=== PATIENT | female | born 1945 | race American Indian/Alaskan Native ===

== ENCOUNTER 2018-02-15 10:06 | Outpatient (CLI) | payer MEDICARE ==
--- NOTE | 2018-02-17 17:54 | Vascular Lab Report ---
RIGHT UPPER EXTREMITY VENOUS DUPLEX: REASON FOR EXAM: Pain and swelling of the right upper extremity COMMENTS ON THE RIGHT: All arm veins visualized are freely compressible without evidence of internal echogenicity. The subclavian and internal jugular veins are free of thrombus. Flow is spontaneous and phasic throughout. COMMENTS ON THE LEFT: A limited study of the jugular and subclavian veins shows no evidence of thrombus. IMPRESSION: No evidence of acute or chronic deep venous thrombosis in the right upper extremity.
--- NOTE | 2018-02-17 17:54 | Vascular Lab Report ---
Right Lower Extremity Venous Duplex Study: Reason for Exam: Pain and swelling of the right lower extremity. Comments on the Right: All veins visualized are freely compressible without evidence of internal echogenicity. Flow is spontaneous and phasic throughout. No evidence of acute or chronic thrombus is seen in any of the vessels visualized. Comments on the Left: A limited duplex study was done of the proximal veins of the left lower extremity. All veins visualized are freely compressible without evidence of internal echogenicity. Flow is spontaneous and phasic throughout. No evidence of acute or chronic thrombus is seen in any of the vessels visualized. Impression: No evidence of acute or chronic deep venous thrombosis in the right lower extremity. The greater saphenous vein is surgically absent on the right. Study was somewhat limited because of patient body habitus.
== END 2018-02-15 10:07 | disposition home or self-care (01) ==
LOC: VAS 10:06
PROVIDERS: ATTEND Internal Medicine
DX: M79.601 Pain in right arm (principal); M79.604 Pain in right leg; M79.89 Other specified soft tissue disorders

== ENCOUNTER 2019-03-16 08:01 | Day surgery (SDC) | payer MEDICARE ==
[~2019-03-16 08:01] MED LIST: NACL 0.9% 1000 ML 1,000 ML IV SCH
== END 2019-03-16 08:02 | disposition home or self-care (01) ==
LOC: OR 08:01
PROVIDERS: ATTEND Surgery Vascular Surgery
DX: I13.2 Hypertensive heart and chronic kidney disease with heart failure and with stage 5 chronic kidney disease, or end stage renal disease (principal); N18.6 End stage renal disease; I50.22 Chronic systolic (congestive) heart failure; E11.22 Type 2 diabetes mellitus with diabetic chronic kidney disease; E78.5 Hyperlipidemia, unspecified; E11.40 Type 2 diabetes mellitus with diabetic neuropathy, unspecified; I63.512 Cerebral infarction due to unspecified occlusion or stenosis of left middle cerebral artery; K21.9 Gastro-esophageal reflux disease without esophagitis; E11.51 Type 2 diabetes mellitus with diabetic peripheral angiopathy without gangrene; I25.10 Atherosclerotic heart disease of native coronary artery without angina pectoris; E03.9 Hypothyroidism, unspecified; M19.90 Unspecified osteoarthritis, unspecified site; Z53.8 Procedure and treatment not carried out for other reasons; Z88.5 Allergy status to narcotic agent; Z88.6 Allergy status to analgesic agent; Z79.01 Long term (current) use of anticoagulants; Z79.899 Other long term (current) drug therapy; Z79.4 Long term (current) use of insulin; Z87.440 Personal history of urinary (tract) infections; Z98.49 Cataract extraction status, unspecified eye; Z95.1 Presence of aortocoronary bypass graft; Z86.718 Personal history of other venous thrombosis and embolism; Z68.43 Body mass index [BMI] 50.0-59.9, adult; Z91.81 History of falling; Z99.2 Dependence on renal dialysis; Z90.710 Acquired absence of both cervix and uterus; Z90.12 Acquired absence of left breast and nipple; Z86.2 Personal history of diseases of the blood and blood-forming organs and certain disorders involving the immune mechanism; Z86.73 Personal history of transient ischemic attack (TIA), and cerebral infarction without residual deficits

== ENCOUNTER 2019-09-25 19:19 | Emergency (ER) | payer MEDICARE ==
--- NOTE | 2019-09-25 20:03 | Event Note ---
ED Screening Note ED Screening Note: pt c/o MALONE and neck pain that began 5 days ago went to [facility] last night no fever no N/V/D PMHx ESRD, DM, CVA This initial assessment/diagnostic orders/clinical plan/treatment(s) is/are subject to change based on patients health status, clinical progression and re- assessment by fellow clinical providers in the ED. Further treatment and workup at subsequent clinical providers discretion. Patient/guardian urged not to elope from the ED as their condition may be serious if not clinically assessed and managed. Initial orders include: CT head, cervical spine, labs
[2019-09-25 21:09] LABS: Basophils # (Auto) 0.1 K/mm3 (0.0-0.1); Basophils % (Auto) 2.1 % (0.0-1.8); Eosinophils # (Auto) 0.1 K/mm3 (0.0-0.4); Eosinophils % (Auto) 2.8 % (0.0-4.3); Hematocrit 40.4 % (30.3-42.9); Hemoglobin 13.4 gm/dl (10.1-14.3); Lymphocytes % (Auto) 21.4 % (13.4-35.0); Mean Corpuscular HGB Conc 33 % (30-34); Mean Corpuscular Volume 102 fl (79-97); Monocytes # (Auto) 0.3 K/mm3 (0.0-0.8); Monocytes % (Auto) 5.6 % (0.0-7.3); Platelet Count 192 K/mm3 (140-440); Red Blood Count 3.97 M/mm3 (3.65-5.03); Red Cell Distribution Width 13.4 % (13.2-15.2)
[2019-09-25 21:21] LABS: Calcium 10.1 mg/dL (8.4-10.2)
--- NOTE | 2019-09-25 21:25 | Cat Scan Report ---
CT head/brain wo con INDICATION: Headache, neck pain. TECHNIQUE: Routine CT head without contrast. All CT scans at this location are performed using CT dos e reduction for ALARA by means of automated exposure control. COMPARISON: None. FINDINGS: BRAIN / INTRACRANIAL CONTENTS: No acute hemorrhage, mass effect, midline shift, or hydrocephalus. No appreciable acute large territorial or lacunar infarct. There is an old left MCA territory infarct wi th encephalomalacia. No loss of marley-white differentiation. Partially empty configuration of the sell a is noted. Moderate degree of generalized cerebral volume loss. ORBITS: No significant abnormality of visualized orbits. SINUSES / MASTOIDS: No significant abnormality of visualized sinuses and mastoid air cells. ADDITIONAL FINDINGS: None. IMPRESSION: 1. Old left MCA territory infarct. No acute intracranial abnormality. 2. Partially empty sella. Signer Name: Mikey Zurita MD Signed: 09/25/2019 9:20 PM Workstation Name: [id number]
--- NOTE | 2019-09-25 21:31 | Cat Scan Report ---
CT CERVICAL SPINE WITHOUT CONTRAST INDICATION / CLINICAL INFORMATION: MAIN: HEADACHE, RT SIDE NECK PAIN.. TECHNIQUE: Axial CT images were obtained through the cervical spine. Sagittal and coronal reformatted images wer e produced. All CT scans at this location are performed using CT dose reduction for ALARA by means of automated exposure control. COMPARISON: None available. FINDINGS: VERTEBRAE: No acute abnormality. No significant height loss. ALIGNMENT: Reversal of normal cervical lordosis centered at the C4-C5 disc space level. DISC SPACES: Multilevel narrowing, most severe at C4-C5 and C5-C6. Large posterior disc osteophyte co mplexes are present at C3-C4 and C4-C5 and C5-C6. FACET JOINTS: Relatively mild facet arthrosis, most significant at C7-T1 on the right. CRANIOCERVICAL JUNCTION:No significant abnormality. SPINAL CANAL: There is probably a moderate degree of stenosis at C4-C5 due to the posteriorly project ing disc osteophyte complex. PARASPINAL SOFT TISSUES: No significant abnormality. ADDITIONAL FINDINGS: There is at least moderate neural foraminal stenosis on the right at C4-C5. LUNG APICES: No significant abnormality of visualized lungs. IMPRESSION: 1. Multilevel degenerative changes with reversal of normal cervical lordosis and some degree of spina l stenosis at C4-C5 due to a large posterior disc osteophyte complex. 2. No acute abnormality of the cervical spine is identified. Signer Name: Mikey Zurita MD Signed: 09/25/2019 9:26 PM Workstation Name: [id number]
--- NOTE | 2019-09-25 21:44 | Emergency Department Report ---
ED Headache HPI - General Chief Complaint: Headache Stated Complaint: HEADACHE RUNNING DOWN RT SHOULDER AND NECK Time Seen by Provider: 09/25/19 20:02 Source: patient, family - History of Present Illness Initial Comments: 74-year-old -[place]i female patient with history of diabetes, hypertension, ESRD on dialysis, CHF, CAD, and CVA with permanent right sided deficits presents with complaints of right sided headache and neck pain for the past 5 days. She denies any fever/chills/sweats/changes in appetite, cough, vision changes, dizziness, or new numbness/tingling/weakness. She states her p ain is not improving with Percocet. She states she was seen at [facility] last night for same symptoms, however states no imaging or lab work were done. She denies any recent falls or head trauma. Allergies/Adverse Reactions: Allergies codeine Allergy (Unverified 03/15/19 11:28) Unknown Penicillins Adverse Reaction (Verified 03/15/19 11:28) Unknown Home Medications: Ambulatory Orders Allopurinol [Zyloprim] 100 mg PO QDAY 02/10/14 FLUoxetine [PROzac] 20 mg PO QDAY 02/10/14 Baclofen [Lioresal] 5 mg PO BID #60 tablet 04/05/14 Gabapentin 400 mg PO BID #60 capsule 04/05/14 Rosuvastatin (Nf) [Crestor] 10 mg PO QHS #30 tablet 04/05/14 Warfarin [Coumadin] 5 mg PO QDAY #30 tablet 04/30/14 Furosemide [Lasix TAB] 80 mg PO DAILY 01/24/19 Insulin Aspart Prot/Aspart(Nf) [NovoLOG Mix 70/30 VIAL] 20 unit SQ BIDAC 01/24/19 Levothyroxine [Synthroid] 50 mcg PO QAM 01/24/19 Losartan [Cozaar] 100 mg PO QDAY 01/24/19 Metoprolol Xl [Metoprolol SUCCINATE ER TAB] 50 mg PO DAILY 01/24/19 Potassium Chloride [K-Dur] 20 meq PO QDAY 01/24/19 Torsemide [Demadex] 20 mg PO DAILY 01/24/19 Warfarin [Coumadin] 10 mg PO QDAY 01/24/19 HYDROcodone/APAP 5-325 [Manvel 5/325] 1 each PO Q6HR PRN #20 tablet 01/25/19 ED Review of Systems ROS: Stated complaint: HEADACHE RUNNING DOWN RT SHOULDER AND NECK Other details as noted in HPI Comment: All other systems reviewed and negative Musculoskeletal: as per HPI Neurological: as per HPI ED Past Medical Hx - Past Medical History Previous Medical History?: Yes Hx Hypertension: Yes Hx Heart Attack/AMI: Yes (1998) Hx Congestive Heart Failure: Yes Hx Diabetes: Yes Hx Deep Vein Thrombosis: Yes Hx Pulmonary Embolism: Yes Hx GERD: Yes Hx Renal Disease: Yes (On dialysis) Hx Arthritis: Yes (Back) Additional medical history: Aphasia - Surgical History Past Surgical History?: Yes Hx Open Heart Surgery: Yes (CABG 1998) Additional Surgical History: hx breast ca - Social History Smoking Status: Never Smoker Substance Use Type: None - Medications Home Medications: Home Medications Medication Instructions Recorded Confirmed Last Taken Type Allopurinol [Zyloprim] 100 mg PO QDAY 02/10/14 03/15/19 01/24/19 History FLUoxetine [PROzac] 20 mg PO QDAY 02/10/14 03/15/19 01/24/19 History Baclofen [Lioresal] 5 mg PO BID #60 tablet 04/05/14 03/15/19 01/24/19 Rx Gabapentin 400 mg PO BID #60 capsule 04/05/14 03/15/19 01/24/19 Rx Rosuvastatin (Nf) [Crestor] 10 mg PO QHS #30 tablet 04/05/14 03/15/19 01/24/19 Rx Warfarin [Coumadin] 5 mg PO QDAY #30 tablet 04/30/14 03/15/19 01/23/19 Rx Furosemide [Lasix TAB] 80 mg PO DAILY 01/24/19 03/15/19 01/24/19 History Insulin Aspart Prot/Aspart(Nf) 20 unit SQ BIDAC 01/24/19 03/15/19 01/24/19 History [NovoLOG Mix 70/30 VIAL] Levothyroxine [Synthroid] 50 mcg PO QAM 01/24/19 03/15/19 01/25/19 05:00 History Losartan [Cozaar] 100 mg PO QDAY 01/24/19 03/15/19 01/24/19 History Metoprolol Xl [Metoprolol 50 mg PO DAILY 01/24/19 03/15/19 01/25/19 05:00 History SUCCINATE ER TAB] Potassium Chloride [K-Dur] 20 meq PO QDAY 01/24/19 03/15/19 01/24/19 History Torsemide [Demadex] 20 mg PO DAILY 01/24/19 03/15/19 01/24/19 History Warfarin [Coumadin] 10 mg PO QDAY 01/24/19 03/15/19 Unknown History HYDROcodone/APAP 5-325 [Manvel 1 each PO Q6HR PRN #20 tablet 01/25/19 03/15/19 Unknown Rx 5/325] ED Physical Exam - General Limitations: Physical Limitation, Other General appearance: alert, in no apparent distress - Head Head exam: Present: atraumatic, normocephalic - Expanded Head Exam Expanded 1 - Mild tenderness to palpation noted. No swollen blood vessel erythema noted - Eye Eye exam: Present: normal appearance, PERRL, EOMI. Absent: scleral icterus - ENT ENT exam: Present: mucous membranes moist - Expanded ENT Exam Expanded Ear exam: Present: other (normal right TM and canal. Tenderness is noted with manipulation of tragus) Mouth exam: Absent: trismus - Neck Neck exam: Present: normal inspection, tenderness (right trapezius muscle tenderness noted), lymphadenopathy (single tender posterior cervical lymph node noted) - Respiratory Respiratory exam: Present: normal lung sounds bilaterally - Cardiovascular Cardiovascular Exam: Present: regular rate, normal rhythm - GI/Abdominal GI/Abdominal exam: Present: soft. Absent: distended, tenderness - Extremities Exam Extremities exam: Present: calf tenderness (right sided) - Back Exam Back exam: Absent: paraspinal tenderness, vertebral tenderness - Neurological Exam Neurological exam: Present: alert, oriented X3, CN II-XII intact, motor sensory deficit (chronic right arm and leg weakness due to stroke, normal strength, ROM, and sensation noted in left extremities ), other (negative brudzinki's and kernig's sign) - Psychiatric Psychiatric exam: Present: normal affect, normal mood - Skin Skin exam: Present: warm, dry, intact, normal color. Absent: rash, diaphoretic, erythema ED Course Vital Signs 09/25/19 09/25/19 09/25/19 19:30 20:02 21:11 Temperature 98.4 F 98.4 F Pulse Rate 54 L 55 L 59 L Respiratory 18 18 16 Rate Blood Pressure 137/58 137/58 Blood Pressure 158/63 [Left] O2 Sat by Pulse 95 100 95 Oximetry 09/26/19 00:29 Temperature Pulse Rate 61 Respiratory 16 Rate Blood Pressure Blood Pressure 126/70 [Left] O2 Sat by Pulse 97 Oximetry ED Medical Decision Making - Lab Data Result diagrams: 09/25/19 20:43 09/25/19 20:43 Lab Results 09/25/19 09/25/19 09/25/19 Range/Units 20:43 20:43 20:43 WBC 4.8 (4.5-11.0) K/mm3 RBC 3.97 (3.65-5.03) M/mm3 Hgb 13.4 (10.1-14.3) gm/dl Hct 40.4 (30.3-42.9) % MCV 102 H (79-97) fl MCH 34 H (28-32) pg MCHC 33 (30-34) % RDW 13.4 (13.2-15.2) % Plt Count 192 (140-440) K/mm3 Lymph % (Auto) 21.4 (13.4-35.0) % Butts % (Auto) 5.6 (0.0-7.3) % Eos % (Auto) 2.8 (0.0-4.3) % Baso % (Auto) 2.1 H (0.0-1.8) % Lymph # 1.0 L (1.2-5.4) K/mm3 Butts # 0.3 (0.0-0.8) K/mm3 Eos # 0.1 (0.0-0.4) K/mm3 Baso # 0.1 (0.0-0.1) K/mm3 Seg Neutrophils % 68.1 (40.0-70.0) % Seg Neutrophils # 3.3 (1.8-7.7) K/mm3 ESR 24 (0-20) mm/Hr Sodium 134 L (137-145) mmol/L Potassium 4.0 (3.6-5.0) mmol/L Chloride 94.3 L (98-107) mmol/L Carbon Dioxide 26 (22-30) mmol/L Anion Gap 18 mmol/L BUN 28 H (7-17) mg/dL Creatinine 2.0 H (0.7-1.2) mg/dL Estimated GFR 29 ml/min BUN/Creatinine Ratio 14 % Glucose 81 (65-100) mg/dL Calcium 10.1 (8.4-10.2) mg/dL - Radiology Data CT head/brain wo con INDICATION: Headache, neck pain. TECHNIQUE: Routine CT head without contrast. All CT scans at this location are performed using CT dose reduction for ALARA by means of automated exposure control. COMPARISON: None. FINDINGS: BRAIN / INTRACRANIAL CONTENTS: No acute hemorrhage, mass effect, midline shift, or hydrocephalus. No appreciable acute large territorial or lacunar infarct. There is an old left MCA territory infarct with encephalomalacia. No loss of marley-white differentiation. Partially empty configuration of the sella is noted. Moderate degree of generalized cerebral volume loss. ORBITS: No significant abnormality of visualized orbits. SINUSES / MASTOIDS: No significant abnormality of visualized sinuses and mastoid air cells. ADDITIONAL FINDINGS: None. IMPRESSION: 1. Old left MCA territory infarct. No acute intracranial abnormality. 2. Partially empty sella. CT CERVICAL SPINE WITHOUT CONTRAST INDICATION / CLINICAL INFORMATION: MAIN: HEADACHE, RT SIDE NECK PAIN.. TECHNIQUE: Axial CT images were obtained through the cervical spine. Sagittal and coronal reformatted images were produced. All CT scans at this location are performed using CT dose reduction for ALARA by means of automated exposure control. COMPARISON: None available. FINDINGS: VERTEBRAE: No acute abnormality. No significant height loss. ALIGNMENT: Reversal of normal cervical lordosis centered at the C4-C5 disc spa ce level. DISC SPACES: Multilevel narrowing, most severe at C4-C5 and C5-C6. Large posterior disc osteophyte complexes are present at C3-C4 and C4-C5 and C5-C6. FACET JOINTS: Relatively mild facet arthrosis, most significant at C7-T1 on the right. CRANIOCERVICAL JUNCTION:No significant abnormality. SPINAL CANAL: There is probably a moderate degree of stenosis at C4-C5 due to the posteriorly projecting disc osteophyte complex. PARASPINAL SOFT TISSUES: No significant abnormality. ADDITIONAL FINDINGS: There is at least moderate neural foraminal stenosis on the right at C4-C5. LUNG APICES: No significant abnormality of visualized lungs. IMPRESSION: 1. Multilevel degenerative changes with reversal of normal cervical lordosis and some degree of spinal stenosis at C4-C5 due to a large posterior disc osteophyte complex. 2. No acute abnormality of the cervical spine is identified. . . . . DUPLEX DOPPLER LOWER EXTREMITY VEINS, RIGHT INDICATION: Right leg pain. History of DVT. TECHNIQUE: Duplex doppler imaging was performed through the veins of the right lower extremity using venous compression and other maneuvers. COMPARISON: Right lower extremity venous ultrasound, 02/15/2018 FINDINGS: Common Femoral vein: Negative. Superficial Femoral vein: Negative. Popliteal vein: Negative. Calf veins: Negative. Additional findings: None. IMPRESSION: 1. No sonographic evidence for DVT in the right lower extremity. - Medical Decision Making 74-year-old female patient here with complaints of right-sided was 5 days. She states her oxycodone is not helping with the pain. She does have history of CVA with permanent right sided neuro deficits. neuro exam today is otherwise wnl and patient denies any fever, body aches, vision changes, dizziness, or neck stiffness. CT head is negative for acute findings. Wbc's are normal. UA is normal. Patient states headache has completely resolved with the ED. Vitals are normal. Patient is due for dialysis tomorrow. Recommend follow-up with her primary care physician and neurology. Discussed very strict return precautions in detail with patient's daughter who states understanding. Critical care attestation.: If time is entered above; I have spent that time in minutes in the direct care of this critically ill patient, excluding procedure time. ED Disposition Clinical Impression: Headache syndrome, Muscle spasm, Cervical lymphadenopathy Disposition: - TO HOME OR SELFCARE Is pt being admited?: No Condition: Stable Instructions: Lymphadenopathy (ED), Acute Headache (ED), Muscle Spasm (ED) Additional Instructions: Please follow-up with your primary care provider for recheck of lymph node and neck within 3-5 days. Return to the emergency department if he developed any new or worsening symptoms Referrals: JOHN RUSH MD [Primary Care Provider] - 2-3 Days ALLAN SUTTON MD [Staff Physician] - 3-5 Days
[2019-09-25] MEDS ORDERED: BUTALB/ACETAMINOPHEN/CAFFEINE TAB PO ONE (22:06)
--- NOTE | 2019-09-25 22:54 | Vascular Lab Report ---
DUPLEX DOPPLER LOWER EXTREMITY VEINS, RIGHT INDICATION: Right leg pain. History of DVT. TECHNIQUE: Duplex doppler imaging was performed through the veins of the right lower extremity using venous comp ression and other maneuvers. COMPARISON: Right lower extremity venous ultrasound, 02/15/2018 FINDINGS: Common Femoral vein: Negative. Superficial Femoral vein: Negative. Popliteal vein: Negative. Calf veins: Negative. Additional findings: None. IMPRESSION: 1. No sonographic evidence for DVT in the right lower extremity. Signer Name: Maribell Olvera MD Signed: 09/25/2019 10:50 PM Workstation Name: [id number]
[2019-09-25] MEDS ORDERED: CYCLOBENZAPRINE 10 MG TAB PO ONE (23:23)
[2019-09-26 00:30] VITALS: BP 126/70
[2019-09-26] MEDS ORDERED: dexAMETHasone 4 MG/ML VIAL IV ONE (00:52)
[2019-09-26] MEDS ORDERED: METOCLOPRAMIDE 10 MG/2 ML INJ IV ONE (00:52)
[2019-09-26] MEDS ORDERED: MORPHINE 4 MG/1 ML INJ IV ONE (00:52)
[2019-09-26] MEDS ORDERED: ONDANSETRON 4 MG ODT TAB PO ONE (00:52)
[2019-09-26] MEDS ORDERED: diphenhydrAMINE 50 MG/ML VIAL IV ONE (00:52)
[2019-09-26 01:53] LABS: Bilirubin,Urine NEG (Negative); Blood,Urine NEG (Negative); Color,Urine Yellow (Yellow); Hyaline Casts,Urine 6 /LPF; Mucus,Urine FEW /HPF; Protein,Urine <15 mg/dL mg/dL (Negative); Urobilinogen,Urine < 2.0 mg/dL (<2.0)
== END 2019-09-26 03:14 | disposition home or self-care (01) ==
LOC: ED 19:19
DX: M62.838 Other muscle spasm (principal); R59.0 Localized enlarged lymph nodes; I25.2 Old myocardial infarction; I13.2 Hypertensive heart and chronic kidney disease with heart failure and with stage 5 chronic kidney disease, or end stage renal disease; I50.9 Heart failure, unspecified; E11.22 Type 2 diabetes mellitus with diabetic chronic kidney disease; N18.6 End stage renal disease; Z99.2 Dependence on renal dialysis; Z86.718 Personal history of other venous thrombosis and embolism; Z86.711 Personal history of pulmonary embolism; Z95.1 Presence of aortocoronary bypass graft; Z85.3 Personal history of malignant neoplasm of breast; Z86.73 Personal history of transient ischemic attack (TIA), and cerebral infarction without residual deficits; Z79.899 Other long term (current) drug therapy; Z88.0 Allergy status to penicillin; Z88.5 Allergy status to narcotic agent
CPT/HCPCS: 36415; 70450; 72125; 80048; 81001; 83735; 85025; 85652; 93971; 96374; 96375; 99284; J1100; J1200; J2270; J2765; Q0162

== ENCOUNTER 2021-03-13 00:57 | Inpatient (IN) | payer MEDICARE ==
--- NOTE | 2021-03-13 01:29 | Emergency Department Report ---
ED Neuro Deficit HPI - General Stated Complaint: STROKE/AMS Time Seen by Provider: 03/13/21 01:09 Source: family, EMS - History of Present Illness Initial Comments: Patient is 75-year-old female with history of CVA, hypertension, diabetes, congestive heart failure and COPD. Patient brought to the emergency room via EMS from home for evaluation of possible stroke. Patient daughter who accompanied her mother stated that she was fine until this morning when she left work around 6 AM and when she came back around 4PM found her more lethargic and unable to move her right upper and lower extremity. She also noted that she is confused and have decreased responsiveness. She stated that she checked her sugar and it was more than 500 she given insulin but no improvement. She also stated that she had a stroke in 2013 with residual right side weakness however she walk with a walker sometimes. Stroke protocol immediately initiated and patient moved to CT for stat CT brain without contrast. Stroke neurology consulted and Dr. Franc Guillen I examined the patient via video conference. CT brain showed no hemorrhage. Patient is not a TPA candidate since symptoms is more than 4.5 hours. -: Sudden Location: speech, right arm, right leg Presenting Symptoms: Present: Weak/Paralyzed One Side, Altered Mental Status History of same: Yes - Related Data Home Medications: Home Medications Medication Instructions Recorded Confirmed Last Taken FLUoxetine [PROzac] 20 mg PO QDAY 02/10/14 03/14/21 01/24/19 allopurinoL [Zyloprim] 100 mg PO QDAY 02/10/14 03/13/21 01/24/19 Levothyroxine [Synthroid] 50 mcg PO QAM 01/24/19 03/13/21 01/25/19 05:00 Previous Rx's Medication Instructions Recorded Last Taken Type Baclofen [Lioresal] 5 mg PO BID #60 tablet 04/05/14 01/24/19 Rx Gabapentin 400 mg PO BID #60 capsule 04/05/14 01/24/19 Rx AtorvaSTATin [Lipitor] 20 mg PO QHS #30 tablet 09/10/20 Unknown Rx Insulin NPH/Regular [NovoLIN 70/30] 25 unit SUB-Q BIDDIAB #1 units 09/10/20 Unknown Rx Lactulose [Cephulac] 20 gm PO QDAY PRN #7 oral.liqd 09/10/20 Unknown Rx ALBUTEROL NEB's [Proventil 0.083% 2.5 mg IH Q3HRT PRN nebu 03/15/21 Unknown Rx NEBS] Apixaban [Eliquis] 5 mg PO Q12HR tablet 03/15/21 Unknown Rx Furosemide [Lasix TAB] 80 mg PO DAILY tablet 03/15/21 Unknown Rx Metoprolol [Lopressor TAB] 25 mg PO Q6HR tablet 03/15/21 Unknown Rx bisacodyL [Dulcolax suppos] 10 mg [place] QDAY PRN supp.rect 03/15/21 Unknown Rx Allergies/Adverse Reactions: Allergies Allergy/AdvReac Type Severity Reaction Status Date / Time codeine Allergy Intermediate Unknown Verified 09/07/20 13:26 Penicillins AdvReac Severe Unknown Verified 09/07/20 13:26 ED Review of Systems ROS: Stated complaint: STROKE/AMS Other details as noted in HPI Comment: All other systems reviewed and negative Constitutional: denies: chills, fever Respiratory: denies: shortness of breath Cardiovascular: denies: chest pain Gastrointestinal: nausea Musculoskeletal: denies: back pain Neurological: denies: headache, weakness ED Past Medical Hx - Past Medical History Hx Hypertension: Yes Hx Heart Attack/AMI: Yes Hx Congestive Heart Failure: Yes Hx Diabetes: Yes Hx Deep Vein Thrombosis: Yes Hx Pulmonary Embolism: Yes Hx GERD: Yes Hx Renal Disease: Yes (On dialysis) Hx Arthritis: Yes Additional medical history: Aphasia - Surgical History Hx Open Heart Surgery: Yes (CABG 1998) Additional Surgical History: hx breast ca - Social History Smoking Status: Never Smoker - Medications Home Medications: Home Medications Medication Instructions Recorded Confirmed Last Taken Type FLUoxetine [PROzac] 20 mg PO QDAY 02/10/14 03/14/21 01/24/19 History allopurinoL [Zyloprim] 100 mg PO QDAY 02/10/14 03/13/21 01/24/19 History Baclofen [Lioresal] 5 mg PO BID #60 tablet 04/05/14 03/13/21 01/24/19 Rx Gabapentin 400 mg PO BID #60 capsule 04/05/14 03/13/21 01/24/19 Rx Levothyroxine [Synthroid] 50 mcg PO QAM 01/24/19 03/13/21 01/25/19 05:00 History AtorvaSTATin [Lipitor] 20 mg PO QHS #30 tablet 09/10/20 03/14/21 Unknown Rx Insulin NPH/Regular [NovoLIN 70/30] 25 unit SUB-Q BIDDIAB #1 units 09/10/20 03/13/21 Unknown Rx Lactulose [Cephulac] 20 gm PO QDAY PRN #7 oral.liqd 09/10/20 03/14/21 Unknown Rx ALBUTEROL NEB's [Proventil 0.083% 2.5 mg IH Q3HRT PRN nebu 03/15/21 Unknown Rx NEBS] Apixaban [Eliquis] 5 mg PO Q12HR tablet 03/15/21 Unknown Rx Furosemide [Lasix TAB] 80 mg PO DAILY tablet 03/15/21 Unknown Rx Metoprolol [Lopressor TAB] 25 mg PO Q6HR tablet 03/15/21 Unknown Rx bisacodyL [Dulcolax suppos] 10 mg [place] QDAY PRN supp.rect 03/15/21 Unknown Rx ED Neuro Physical Exam - General General appearance: obtunded Suspected Stroke: Yes - Head Head exam: Present: atraumatic, normocephalic, normal inspection - Eye Eye exam: Present: normal appearance, PERRL - ENT ENT exam: Present: normal orophraynx - Neck Neck exam: Present: normal inspection - Respiratory Respiratory exam: Present: normal lung sounds bilaterally - Cardiovascular Cardiovascular Exam: Present: regular rate, normal rhythm, normal heart sounds - GI/Abdominal GI/Abdominal exam: Present: soft, normal bowel sounds. Absent: distended, tenderness, guarding, rebound, rigid, organomegaly, mass, bruit, pulsatile mass, hernia - Extremities Exam Extremities exam: Present: normal inspection, full ROM, normal capillary refill - Back Exam Back exam: Present: normal inspection, full ROM. Absent: CVA tenderness (R), CVA tenderness (L) - Neurological Exam Neurological exam: Present: altered - NIHSS Assessment Interval: Baseline 1a. Level of Consciousness: arousable/minor stimuli 1b. LOC Questions: answers no questions correctly 1c. LOC Commands: performs no tasks correctly 2. Best Gaze: normal 3. Visual: no visual loss 4. Facial Palsy: minor paralysis 5b. Motor Arm Right: drift 5a. Motor Arm Left: no drift 6a. Motor Leg Left: no drift 6b. Motor Leg Right: drift 7. Limb Ataxia: absent 8. Sensory: mild/moderate sensory loss 9. Best Language: mild/moderate aphasia 10. Dysarthria: mild/moderate dysarthria 11. Extinction/Inattention: no abnormality Total Score: 11 Stroke Severity: Moderate Stroke - Psychiatric Psychiatric exam: Present: flat affect - Skin Skin exam: Present: warm, intact, normal color ED Course Vital Signs 03/13/21 03/13/21 03/13/21 01:53 01:54 01:56 Temperature Pulse Rate 62 63 63 Respiratory Rate Blood Pressure 133/63 133/63 O2 Sat by Pulse 96 95 96 Oximetry 03/13/21 03/13/21 03/13/21 01:58 02:00 02:25 Temperature 97.7 F Pulse Rate 66 66 Respiratory Rate Blood Pressure 133/63 147/68 O2 Sat by Pulse 95 96 Oximetry 03/13/21 03/13/21 03/13/21 04:08 04:10 04:12 Temperature Pulse Rate 67 68 67 Respiratory Rate Blood Pressure 150/70 150/70 150/70 O2 Sat by Pulse 97 97 97 Oximetry 03/13/21 03/13/21 03/13/21 04:14 04:16 04:18 Temperature Pulse Rate 67 67 67 Respiratory Rate Blood Pressure 151/73 151/73 151/73 O2 Sat by Pulse 97 97 99 Oximetry 03/13/21 03/13/21 03/13/21 04:20 04:22 04:24 Temperature Pulse Rate 66 69 67 Respiratory Rate Blood Pressure 151/73 151/73 151/73 O2 Sat by Pulse 96 98 97 Oximetry 03/13/21 03/13/21 03/13/21 04:26 04:28 04:30 Temperature Pulse Rate 68 67 66 Respiratory Rate Blood Pressure 151/73 151/73 136/59 O2 Sat by Pulse 97 96 98 Oximetry 03/13/21 03/13/21 03/13/21 04:32 04:34 04:36 Temperature Pulse Rate 68 65 65 Respiratory Rate Blood Pressure 136/59 136/59 136/59 O2 Sat by Pulse 98 98 99 Oximetry 03/13/21 03/13/21 03/13/21 04:38 04:40 04:42 Temperature Pulse Rate 66 66 66 Respiratory Rate Blood Pressure 136/59 136/59 136/59 O2 Sat by Pulse 98 98 99 Oximetry 05/12/21 05/12/21 05/12/21 04:44 04:46 04:48 Temperature Pulse Rate 66 61 72 Respiratory Rate Blood Pressure 136/59 128/58 128/58 O2 Sat by Pulse 93 97 97 Oximetry 03/13/21 03/13/21 03/13/21 04:50 04:52 04:54 Temperature Pulse Rate 70 72 66 Respiratory Rate Blood Pressure 128/58 128/58 128/58 O2 Sat by Pulse 97 100 98 Oximetry 03/13/21 03/13/21 03/13/21 04:56 04:58 05:00 Temperature Pulse Rate 68 65 64 Respiratory Rate Blood Pressure 128/58 128/58 140/62 O2 Sat by Pulse 98 99 99 Oximetry 03/13/21 03/13/21 03/13/21 05:02 05:04 05:06 Temperature Pulse Rate 65 66 66 Respiratory Rate Blood Pressure 140/62 140/62 140/62 O2 Sat by Pulse 98 99 99 Oximetry 03/13/21 03/13/21 03/13/21 05:08 05:10 05:12 Temperature Pulse Rate 64 63 63 Respiratory Rate Blood Pressure 140/62 140/62 140/62 O2 Sat by Pulse 98 99 99 Oximetry 03/13/21 03/13/21 03/13/21 05:14 05:16 05:18 Temperature Pulse Rate 62 64 65 Respiratory Rate Blood Pressure 128/53 128/53 128/53 O2 Sat by Pulse 100 99 99 Oximetry 03/13/21 03/13/21 03/13/21 05:20 05:22 05:24 Temperature Pulse Rate 65 65 68 Respiratory Rate Blood Pressure 128/53 128/53 128/53 O2 Sat by Pulse 100 99 98 Oximetry 03/13/21 03/13/21 03/13/21 05:26 05:28 05:30 Temperature Pulse Rate 67 67 66 Respiratory Rate Blood Pressure 128/53 128/53 115/78 O2 Sat by Pulse 99 98 99 Oximetry 03/13/21 03/13/21 03/13/21 05:32 05:34 05:36 Temperature Pulse Rate 68 66 67 Respiratory Rate Blood Pressure 115/78 115/78 115/78 O2 Sat by Pulse 97 97 98 Oximetry 03/13/21 03/13/21 03/13/21 05:38 05:40 05:42 Temperature Pulse Rate 69 67 70 Respiratory Rate Blood Pressure 115/78 115/78 115/78 O2 Sat by Pulse 98 98 99 Oximetry 03/13/21 03/13/21 03/13/21 05:44 05:46 05:49 Temperature Pulse Rate 70 76 Respiratory 18 Rate Blood Pressure 115/78 112/78 O2 Sat by Pulse 98 94 Oximetry 03/13/21 03/13/21 07:00 07:30 Temperature Pulse Rate 67 65 Respiratory Rate Blood Pressure 149/62 132/55 O2 Sat by Pulse 97 98 Oximetry - Lab Data Result diagrams: 03/16/21 04:44 03/16/21 04:44 Lab Results 03/13/21 03/13/21 03/13/21 Range/Units 01:45 01:45 01:45 WBC 7.5 (4.5-11.0) K/mm3 RBC 3.70 (3.65-5.03) M/mm3 Hgb 12.1 (10.1-14.3) gm/dl Hct 37.2 (30.3-42.9) % MCV 101 H (79-97) fl MCH 33 H (28-32) pg MCHC 33 (30-34) % RDW 15.8 H (13.2-15.2) % Plt Count 113 L (140-440) K/mm3 Lymph % (Auto) 7.6 L (13.4-35.0) % [place] % (Auto) 10.4 H (0.0-7.3) % Eos % (Auto) 0.1 (0.0-4.3) % Baso % (Auto) 0.4 (0.0-1.8) % Lymph # (Auto) 0.6 L (1.2-5.4) K/mm3 [place] # (Auto) 0.8 (0.0-0.8) K/mm3 Eos # (Auto) 0.0 (0.0-0.4) K/mm3 Baso # (Auto) 0.0 (0.0-0.1) K/mm3 Seg Neutrophils % 81.5 H (40.0-70.0) % Seg Neutrophils # 6.1 (1.8-7.7) K/mm3 PT 17.9 H (12.2-14.9) Sec. INR 1.49 H (0.87-1.13) APTT 33.3 (24.2-36.6) Sec. Thrombin Time 19.1 (15.1-19.6) Sec. Sodium 135 L (137-145) mmol/L Potassium 4.7 (3.6-5.0) mmol/L Chloride 97.4 L (98-107) mmol/L Carbon Dioxide 22 (22-30) mmol/L Anion Gap 20 mmol/L BUN 34 H (7-17) mg/dL Creatinine 4.5 H (0.6-1.2) mg/dL Estimated GFR 11 ml/min BUN/Creatinine Ratio 8 % Glucose 77 (65-100) mg/dL Calcium 10.1 (8.4-10.2) mg/dL Total Bilirubin (0.1-1.2) mg/dL Direct Bilirubin (0-0.2) mg/dL Indirect Bilirubin mg/dL AST (5-40) units/L ALT (7-56) units/L Alkaline Phosphatase (35-129) units/L Total Creatine Kinase 37 (30-135) units/L CK-MB (CK-2) 3.7 (0.0-4.0) ng/mL CK-MB (CK-2) Rel Index 10.0 H (0-4) Troponin T 0.135 H* (0.00-0.029) ng/mL Total Protein (6.3-8.2) g/dL Albumin (3.9-5) g/dL Albumin/Globulin Ratio % Triglycerides 89 (2-149) mg/dL Cholesterol 81 (50-199) mg/dL LDL Cholesterol Direct 44 L (50-130) mg/dL HDL Cholesterol 28 L (40-59) mg/dL Cholesterol/HDL Ratio 2.89 % 03/13/21 Range/Units 01:45 WBC (4.5-11.0) K/mm3 RBC (3.65-5.03) M/mm3 Hgb (10.1-14.3) gm/dl Hct (30.3-42.9) % MCV (79-97) fl MCH (28-32) pg MCHC (30-34) % RDW (13.2-15.2) % Plt Count (140-440) K/mm3 Lymph % (Auto) (13.4-35.0) % [place] % (Auto) (0.0-7.3) % Eos % (Auto) (0.0-4.3) % Baso % (Auto) (0.0-1.8) % Lymph # (Auto) (1.2-5.4) K/mm3 [place] # (Auto) (0.0-0.8) K/mm3 Eos # (Auto) (0.0-0.4) K/mm3 Baso # (Auto) (0.0-0.1) K/mm3 Seg Neutrophils % (40.0-70.0) % Seg Neutrophils # (1.8-7.7) K/mm3 PT (12.2-14.9) Sec. INR (0.87-1.13) APTT (24.2-36.6) Sec. Thrombin Time (15.1-19.6) Sec. Sodium (137-145) mmol/L Potassium (3.6-5.0) mmol/L Chloride (98-107) mmol/L Carbon Dioxide (22-30) mmol/L Anion Gap mmol/L BUN (7-17) mg/dL Creatinine (0.6-1.2) mg/dL Estimated GFR ml/min BUN/Creatinine Ratio % Glucose (65-100) mg/dL Calcium (8.4-10.2) mg/dL Total Bilirubin 0.50 (0.1-1.2) mg/dL Direct Bilirubin 0.2 (0-0.2) mg/dL Indirect Bilirubin 0.3 mg/dL AST 109 H (5-40) units/L ALT 62 H (7-56) units/L Alkaline Phosphatase 126 (35-129) units/L Total Creatine Kinase (30-135) units/L CK-MB (CK-2) (0.0-4.0) ng/mL CK-MB (CK-2) Rel Index (0-4) Troponin T (0.00-0.029) ng/mL Total Protein 6.0 L (6.3-8.2) g/dL Albumin 2.8 L (3.9-5) g/dL Albumin/Globulin Ratio 0.9 % Triglycerides (2-149) mg/dL Cholesterol (50-199) mg/dL LDL Cholesterol Direct (50-130) mg/dL HDL Cholesterol (40-59) mg/dL Cholesterol/HDL Ratio % - EKG Data -: EKG Interpreted by Ut EKG shows normal: sinus rhythm Rate: normal Interpretation: no acute changes - Radiology Data Radiology results: report reviewed - Medical Decision Making Patient is 75-year-old female with history of CVA, hypertension, diabetes, congestive heart failure and COPD. Patient brought to the emergency room via EMS from home for evaluation of possible stroke. Patient daughter who accompanied her mother stated that she was fine until this morning when she left work around 6 AM and when she came back around 4PM found her more lethargic and unable to move her right upper and lower extremity. She also noted that she is confused and have decreased responsiveness. She stated that she checked her sugar and it was more than 500 she given insulin but no improvement. She also stated that she had a stroke in 2013 with residual right side weakness however she walk with a walker sometimes. Stroke protocol immediately initiated and patient moved to CT for stat CT brain without contrast. Stroke neurology consulted and Dr. Franc Guillen I examined the patient via video conference. CT brain showed no hemorrhage. Patient is not a TPA candidate since symptoms is more than 4.5 hours I discussed the patient with , he agreed to admit the patient to medical service for further management. Critical Care Time: Yes Critical care time in (mins) excluding proc time.: 30 Critical care attestation.: If time is entered above; I have spent that time in minutes in the direct care of this critically ill patient, excluding procedure time. ED Disposition Clinical Impression: Acute CVA (cerebrovascular accident), Acute on chronic renal failure, Elevated troponin Disposition: OP ADMIT IP TO THIS HOSP Is pt being admited?: Yes Condition: Stable
--- NOTE | 2021-03-13 01:41 | Cat Scan Report ---
CT head without contrast INDICATION : CODE STROKE PROTOCOL!!! Stroke-Like symptoms. TECHNIQUE: Axial imaging performed from the skull apex through the skull base without the use of con trast. All CT scans at this location are performed using CT dose reduction for ALARA by means of aut omated exposure control. COMPARISON: 09/25/2019. FINDINGS: Parenchyma: No mass, acute stroke or hemorrhage. Old large left MCA infarct. Mild diffuse atrophy. Ventricles: Ex vacuo dilatation of the left ventricle. Soft tissues: Soft tissues including the orbits appear normal. Bones: No acute osseous abnormality. Sinuses: Sinuses and mastoid air cells are clear. IMPRESSION: 1. No acute abnormality. 2. Large chronic left MCA infarct. CODE STROKE: Time of Communication (MALT HOUSE OPERATOR/CDT): 12:34 AM Central standard time. Licensed Practitioner Receiving Report: Dr. Banegas Signer Name: Justin Car MD Signed: 03/13/2021 1:37 AM Workstation Name: [email or web address]
--- NOTE | 2021-03-13 01:44 | Consultation ---
History of Present Illness History of present illness: [facility] Consult Note # Demographics Consult Type: Acute Stroke Level 2 (4.5-24 hrs) Patient Location: Emergency Room First Name: Ewa Cash Last Name: Richi Date of : 1945 Age: 75 Gender: Female Time of Initial Page (Eastern Time): 03/13/2021, 01:11 Time of Return Call (Eastern Time): 03/13/2021, 01:12 # HPI History: 75 year-old female with prior stroke with residual right-sided weakness presents with nausea, vomiting, and worsening of her right-sided weakness. She was last known normal at 4 PM. # Scores Time of exam and NIHSS ( Time): 03/13/2021, 01:41 NIHSS Total: 10 # Exam Vitals: vital signs reviewed # PMH-FH-SH Past Medical History: chronic kidney disease, Diabetes, stroke # Data Head CT: no bleed, chronic left MCA stroke # Assessment Impression: Right-sided weakness - likely recrudescence of prior large left MCA stroke, cannot exclude recurrent stroke # Plan Thrombolytic/Intervention: NOT IV Thrombolytic or IA Intervention Thrombolytic Exclusion: > 4.5 hours Intraarterial Exclusion: CTA pending Labs: CBC, comprehensive metabolic panel, hemoglobin A1c, lipid panel Imaging: (urgency: STAT in ED): CT Angiogram Head and CT Angiogram Neck AND call back with results if abnormal Imaging: (urgency: routine admission): MRI Brain without contrast Diagnostic Test: echo without bubble study Therapy/Evaluation: NPO until swallow evaluation, PT/OT evaluation, speech/swallow consultation Medication: aspirin 325 mg daily, start statin with goal of LDL < 70 Other: permissive hypertension, telemetry monitoring, I have discussed my recommendations with the referring provider Disposition: admit Medications and Allergies Allergies Allergy/AdvReac Type Severity Reaction Status Date / Time codeine Allergy Intermediate Unknown Verified 09/07/20 13:26 Penicillins AdvReac Severe Unknown Verified 09/07/20 13:26 Home Medications Medication Instructions Recorded Confirmed Last Taken Type FLUoxetine [PROzac] 20 mg PO QDAY 02/10/14 03/15/19 01/24/19 History allopurinoL [Zyloprim] 100 mg PO QDAY 02/10/14 03/15/19 01/24/19 History Baclofen [Lioresal] 5 mg PO BID #60 tablet 04/05/14 03/15/19 01/24/19 Rx Gabapentin 400 mg PO BID #60 capsule 04/05/14 03/15/19 01/24/19 Rx Furosemide [Lasix TAB] 80 mg PO DAILY 01/24/19 03/15/19 01/24/19 History Levothyroxine [Synthroid] 50 mcg PO QAM 01/24/19 03/15/19 01/25/19 05:00 History Losartan [Cozaar] 100 mg PO QDAY 01/24/19 03/15/19 01/24/19 History Metoprolol Xl [Metoprolol 50 mg PO DAILY 01/24/19 03/15/19 01/25/19 05:00 History SUCCINATE ER TAB] Potassium Chloride [K-Dur] 20 meq PO QDAY 01/24/19 03/15/19 01/24/19 History Torsemide [Demadex] 20 mg PO DAILY 01/24/19 03/15/19 01/24/19 History HYDROcodone/APAP 5-325 [[place] 1 each PO Q6HR PRN #20 tablet 01/25/19 03/15/19 Unknown Rx 5-325 mg TAB] Methocarbamol [Robaxin] 500 mg PO TID PRN #15 tablet 09/26/19 Unknown Rx AtorvaSTATin [Lipitor] 20 mg PO QHS #30 tablet 09/10/20 Unknown Rx Insulin NPH/Regular [NovoLIN 70/30] 25 unit SUB-Q BIDDIAB #1 units 09/10/20 Unknown Rx Lactulose [Cephulac] 20 gm PO QDAY PRN #7 oral.liqd 09/10/20 Unknown Rx Warfarin [Coumadin] 10 mg PO QDAY@1700 #20 tablet 09/10/20 Unknown Rx
[2021-03-13 02:10] LABS: Basophils % (Auto) 0.4 % (0.0-1.8); Eosinophils % (Auto) 0.1 % (0.0-4.3); Hematocrit 37.2 % (30.3-42.9); Hemoglobin 12.1 gm/dl (10.1-14.3); Lymphocytes # (Auto) 0.6 K/mm3 (1.2-5.4); Lymphocytes % (Auto) 7.6 % (13.4-35.0); Mean Corpuscular HGB Conc 33 % (30-34); Mean Corpuscular Volume 101 fl (79-97); Monocytes # (Auto) 0.8 K/mm3 (0.0-0.8); Monocytes % (Auto) 10.4 % (0.0-7.3); Platelet Count 113 K/mm3 (140-440); Red Cell Distribution Width 15.8 % (13.2-15.2)
[2021-03-13 02:24] LABS: INR 1.49 (0.87-1.13)
[2021-03-13 02:25] LABS: Partial Thromboplastin Time 33.3 Sec. (24.2-36.6)
[2021-03-13 02:27] LABS: Calcium 10.1 mg/dL (8.4-10.2); Creatine Kinase MB 3.7 ng/mL (0.0-4.0)
--- NOTE | 2021-03-13 02:27 | XRay Report ---
CHEST 1 VIEW 03/13/2021 1:14 AM INDICATION / CLINICAL INFORMATION: AMS. COMPARISON: 09/07/2020 FINDINGS: SUPPORT DEVICES: None. HEART / MEDIASTINUM: Moderate cardiomegaly status post previous median sternotomy. LUNGS / PLEURA: Mild vascular congestion/edema. No pneumothorax. ADDITIONAL FINDINGS: No significant additional findings. IMPRESSION: Mild congestive failure. Signer Name: Justin Car MD Signed: 03/13/2021 2:23 AM Workstation Name: [id number]
[2021-03-13 02:31] LABS: Thrombin Time 19.1 Sec. (15.1-19.6)
--- NOTE | 2021-03-13 02:45 | Cat Scan Report ---
CTA neck without and with intravenous contrast material CLINICAL HISTORY: Post-CODE STROKE PROTOCOL TECHNIQUE: Following acquisition of a timing bolus 0.625 mm thick contiguous axial scans were obtained from aort ic arch to the skull base during rapid bolus intravenous contrast infusion. In addition to evaluation of axial source images multiplanar reconstructions were produced and reviewed for this report. 3 farzad ne MIP reconstructions were produced and reviewed. Contrast dose report: Omnipaque 350: 100 ml, administered intravenously All CT examinations performed at this facility utilize modulated dose reduction, iterative reconstruc tion or weight-based dosing, as appropriate, to obtain a radiation dose which is as low as can reason ably be achieved. FINDINGS: Thoracic aorta: Evaluation is limited secondary to dense contrast in the innominate vein which produc es beam hardening artifact. This is most problematic in evaluation of the proximal brachiocephalic ar mady. Extensive calcified atherosclerotic plaque is observed along the visualized portions of the tho racic aorta and at the origins of the brachiocephalic artery and left subclavian artery. No additiona l abnormalities are identified along the course of the thoracic aorta..The origins of the great vesse ls have an otherwise unremarkable appearance. Right carotid artery: Combination of soft and calcified plaque at the right carotid bulb extending up into the proximal R ICA is responsible for a stenosis on the order of 70% severity. The remainder of the right common carotid artery and cervical segments of the R ICA have an unremarkable appearance. Left carotid artery: Combination of soft and calcified plaque is observed at the left carotid bulb. T here is a string sign at the origin of the LICA indicating the presence of a high-grade stenosis (gre ater than 90%). Focal poststenotic dilatation is observed in the proximal LICA. Subsequently addition al soft and calcified plaque are observed within about 14 mm of the origin of the LICA. A tandem sten osis measuring about 50% severity is present in this location. The mid and distal segments of the LIC A are reduced in size secondary to these proximal stenoses.. Posterior circulation: Left vertebral artery is dominant. Calcified atherosclerotic plaque is present at the origin of both vertebral arteries without definite stenosis. Calcified plaque is also seen at the proximal V4 segment of the right vertebral artery. Both vertebral arteries contribute to the bas ilar artery origin. The degree of stenosis, if any, is determined utilizing NASCET like criteria. In this case there is a 90% stenosis at the origin of the LICA and a 70% stenosis at the origin of the R ICA. Evaluation of the nonvascular soft tissue structures reveal no abnormality. There is no indication of cervical lymphadenopathy. No abnormalities are seen along the course of the airway. Visualized porti ons of the parotid glands and the submandibular salivary glands have a normal appearance. Thyroid gla nd has a normal appearance. Evaluation of the lung apices reveals no evidence of lung nodule or infil trate. Evaluation of the cervical spine is remarkable for widespread cervical spondylosis with multifocal ne uroforaminal stenosis. Posterior osteophyte contributes to moderate central canal stenosis at the C4- 5 level. IMPRESSION: Hemodynamically significant stenosis is present at the origin of both internal carotid arteries with about a 70% origin stenosis at the R ICA and a 90% stenosis at the origin of the LICA where a "string sign" is identified. Signer Name: Leo Chun MD Signed: 03/13/2021 2:41 AM Workstation Name: [id number]
[2021-03-13 02:55] LABS: Chol/HDL Ratio 2.89 %
--- NOTE | 2021-03-13 02:57 | Cat Scan Report ---
CTA head with intravenous contrast CLINICAL HISTORY: Post-CODE STROKE PROTOCOL TECHNIQUE: 0.625 mm thick contiguous axial scans were obtained from the skull base to the skull vertex during r apid bolus administration of intravenous contrast material. Multiplanar reconstructions were produced in the coronal and sagittal planes. In addition 3 plane MIP instructions were produced and reviewed for this report. The axial source images and reconstructed images were reviewed for this report. CONTRAST DOSE REPORT: Omnipaque 350: 100 ml administered intravenously. All CT scans at this location are performed using CT dose reduction for ALARA by means of automated e xposure control. FINDINGS: Internal carotid arteries: Extensively calcified atherosclerotic plaque is present along the cavernou s segments of both internal carotid arteries with involvement of the ophthalmic and communicating seg ments bilaterally. The LICA is decreased in caliber throughout its mid and distal cervical segment se condary to a proximal stenosis at the left carotid bifurcation. In addition there is extensively calc ified atherosclerotic plaque along the course the cavernous segment of this vessel with additional, h igh-grade tandem stenoses identified. Evaluation of the P2 segment of the R ICA is remarkable for ext ensive calcified atherosclerotic plaque. There is a high-grade stenosis just proximal to the anterior genu of the R ICA which measures approximately 70% severity by NASCET like criteria. Middle cerebral arteries:Patient is status post remote large left MCA infarction. The M1 segments of the middle cerebral arteries are fairly symmetrical in size. There is no indication of stenosis or la rge vessel occlusion. The size and number of the M2 and M3 segments is bilaterally symmetrical. Anterior cerebral arteries:Bilaterally symmetrical A1 segments are demonstrated. No abnormalities are seen along the course of the A2 segments or their visualized pericallosal branches. An intact anteri or communicating artery is demonstrated. Vertebral arteries: Left vertebral artery is dominant. Both vertebral arteries reach the basilar ashli ry origin. There is moderate calcified plaque at the proximal V4 segment of the right vertebral arter y without associated stenosis. Basilar artery:Basilar artery has an unremarkable appearance. Posterior cerebral arteries: Intact posterior communicating arteries are demonstrated bilaterally. Th e posterior cerebral arteries have a normal and symmetrical appearance. Dural sinuses: Dural venous sinuses are adequately demonstrated on this exam. There is no evidence of dural sinus thrombosis. IMPRESSION: 1. Extensive calcified atherosclerotic plaque along the cavernous segments of both internal carotid a rteries is associated with stenoses of these intracranial segments as described above. Maximum severi ty stenosis is about 70% along the cavernous segment of the R ICA. 2. Remote large left MCA infarction. Signer Name: Leo Chun MD Signed: 03/13/2021 2:52 AM Workstation Name: [id number]
[2021-03-13] MEDS ORDERED: ACETAMINOPHEN 325 MG TAB PO ONE (03:31)
[2021-03-13 03:58] LABS: Albumin 2.8 g/dL (3.9-5); Bilirubin,Direct 0.2 mg/dL (0-0.2)
[2021-03-13] MEDS ORDERED: ONDANSETRON 4 MG/2 ML INJ IV ONE (05:04)
--- NOTE | 2021-03-13 07:55 | History and Physical Report ---
History of Present Illness Date of examination: 03/13/21 Date of admission: 03/13/21 04:12 Chief complaint: AMS with worsening right hemiparesis History of present illness: Due to patient's current mental status information was obtained from the ED physician and family " patient is a 75-year-old female with history of CVA, hypertension, diabetes, congestive heart failure and COPD. Patient brought to the emergency room via EMS from home for evaluation of possible stroke. Patient daughter who accompanied her mother stated that she was fine until this morning when she left work around 6 AM and when she came back around 4PM found her more lethargic and unable to move her right upper and lower extremity. She also noted that she is confused and have decreased responsiveness. She stated that she checked her sugar and it was more than 500 she given insulin but no improvement. She also stated that she had a stroke in 2013 with residual right side weakness however she walk with a walker sometimes. Stroke protocol immediately initiated and patient moved to CT for stat CT brain without contrast. Stroke neurology consulted and Dr. Franc Guillen I exam ined the patient via video conference. CT brain showed no hemorrhage. Patient is not a TPA candidate since symptoms is more than 4.5 hours. -: Sudden Patient was recommended for admission for further evaluation. During my examination she remains aphasic with significant right-sided paresis. per family she has been aphasic since 2013 although she could make some audible sound and aware, in the recent months that has been declining and worse in the last 3 days resulting in ineffective dialysis 2 days ago and in the last day could not stay awake, she had repeated vomiting episode. She also reports that she was recently taken off xeralto due to severe nose bleeds about a week ago and was placed on full dose asa with 4 doses of baby aspirin. Big bruise on her leg noted 2 days ago. Otherwise the patient is unable to provide any information due to her mental sta tus, I did discuss medication list with the daughter. Past History Past Medical History: CAD, COPD, diabetes, heart failure, hypertension, hyperlipidemia, stroke, other (recent Nose bleed) Social history: no significant social history, lives with family Family history: no significant family history Medications and Allergies Allergies Allergy/AdvReac Type Severity Reaction Status Date / Time codeine Allergy Intermediate Unknown Verified 09/07/20 13:26 Penicillins AdvReac Severe Unknown Verified 09/07/20 13:26 Home Medications Medication Instructions Recorded Confirmed Last Taken Type FLUoxetine [PROzac] 20 mg PO QDAY 02/10/14 03/15/19 01/24/19 History allopurinoL [Zyloprim] 100 mg PO QDAY 02/10/14 03/15/19 01/24/19 History Baclofen [Lioresal] 5 mg PO BID #60 tablet 04/05/14 03/15/19 01/24/19 Rx Gabapentin 400 mg PO BID #60 capsule 04/05/14 03/15/19 01/24/19 Rx Furosemide [Lasix TAB] 80 mg PO DAILY 01/24/19 03/15/19 01/24/19 History Levothyroxine [Synthroid] 50 mcg PO QAM 01/24/19 03/15/19 01/25/19 05:00 History Losartan [Cozaar] 100 mg PO QDAY 01/24/19 03/15/19 01/24/19 History Metoprolol Xl [Metoprolol 50 mg PO DAILY 01/24/19 03/15/19 01/25/19 05:00 History SUCCINATE ER TAB] Potassium Chloride [K-Dur] 20 meq PO QDAY 01/24/19 03/15/19 01/24/19 History Torsemide [Demadex] 20 mg PO DAILY 01/24/19 03/15/19 01/24/19 History HYDROcodone/APAP 5-325 [[place] 1 each PO Q6HR PRN #20 tablet 01/25/19 03/15/19 Unknown Rx 5-325 mg TAB] Methocarbamol [Robaxin] 500 mg PO TID PRN #15 tablet 09/26/19 Unknown Rx AtorvaSTATin [Lipitor] 20 mg PO QHS #30 tablet 09/10/20 Unknown Rx Insulin NPH/Regular [NovoLIN 70/30] 25 unit SUB-Q BIDDIAB #1 units 09/10/20 Unknown Rx Lactulose [Cephulac] 20 gm PO QDAY PRN #7 oral.liqd 09/10/20 Unknown Rx Warfarin [Coumadin] 10 mg PO QDAY@1700 #20 tablet 09/10/20 Unknown Rx Review of Systems ROS unobtainable: due to mental status Exam - Physical Exam Narrative exam: VITAL SIGNS: Reviewed. GENERAL: The patient appears obese, stuporous although arousable with noxious stimuli vital signs as documented. Patient still fluid glucose at home includes awaiting nurse to disrobe and put on hospital grounds with our exam can be done HEAD: No signs of head trauma. EYES: Pupils are equal. Extraocular motions intact. EARS: Hearing grossly intact. MOUTH: Oropharynx is normal. NECK: No adenopathy, no JVD. CHEST: Chest with clear breath sounds bilaterally. No wheezes, rales, or rhonchi. CARDIAC: Regular rate and rhythm. S1 and S2, without murmurs, gallops, or rubs. VASCULAR: No Edema. Peripheral pulses normal and equal in all extremities. ABDOMEN: Soft, non tender and non distended. No rebound or guarding, and no masses palpated. Bowel Sounds normal. MUSCULOSKELETAL: Good range of motion of all major joints. Extremities without clubbing, cyanosis or edema. NEUROLOGIC EXAM: Stuporous but arousable flaccid right upper and lower extremity aphasic. Able to lift left upper extremity and left lower extremity up. PSYCHIATRIC: Mood normal. SKIN: Ecchymosis lower extremity detail exam as documented in skin assessment - Constitutional Vitals: Temp Pulse Resp BP Pulse Ox 97.7 F 76 18 112/78 94 03/13/21 02:25 03/13/21 05:46 03/13/21 05:49 03/13/21 05:46 03/13/21 05:46 HEART Score - HEART Score Troponin: Troponin T 0.135 ng/mL (0.00-0.029) H* 03/13/21 01:45 Results - Labs CBC & Chem 7: 03/13/21 01:45 03/13/21 01:45 Labs: Laboratory Last Values WBC 7.5 K/mm3 (4.5-11.0) 03/13/21 01:45 RBC 3.70 M/mm3 (3.65-5.03) 03/13/21 01:45 Hgb 12.1 gm/dl (10.1-14.3) 03/13/21 01:45 Hct 37.2 % (30.3-42.9) 03/13/21 01:45 MCV 101 fl (79-97) H 03/13/21 01:45 MCH 33 pg (28-32) H 03/13/21 01:45 MCHC 33 % (30-34) 03/13/21 01:45 RDW 15.8 % (13.2-15.2) H 03/13/21 01:45 Plt Count 113 K/mm3 (140-440) L 03/13/21 01:45 Lymph % (Auto) 7.6 % (13.4-35.0) L 03/13/21 01:45 [place] % (Auto) 10.4 % (0.0-7.3) H 03/13/21 01:45 Eos % (Auto) 0.1 % (0.0-4.3) 03/13/21 01:45 Baso % (Auto) 0.4 % (0.0-1.8) 03/13/21 01:45 Lymph # (Auto) 0.6 K/mm3 (1.2-5.4) L 03/13/21 01:45 [place] # (Auto) 0.8 K/mm3 (0.0-0.8) 03/13/21 01:45 Eos # (Auto) 0.0 K/mm3 (0.0-0.4) 03/13/21 01:45 Baso # (Auto) 0.0 K/mm3 (0.0-0.1) 03/13/21 01:45 Seg Neutrophils % 81.5 % (40.0-70.0) H 03/13/21 01:45 Seg Neutrophils # 6.1 K/mm3 (1.8-7.7) 03/13/21 01:45 PT 17.9 Sec. (12.2-14.9) H 03/13/21 01:45 INR 1.49 (0.87-1.13) H 03/13/21 01:45 APTT 33.3 Sec. (24.2-36.6) 03/13/21 01:45 Thrombin Time 19.1 Sec. (15.1-19.6) 03/13/21 01:45 Sodium 135 mmol/L (137-145) L 03/13/21 01:45 Potassium 4.7 mmol/L (3.6-5.0) 03/13/21 01:45 Chloride 97.4 mmol/L (98-107) L 03/13/21 01:45 Carbon Dioxide 22 mmol/L (22-30) 03/13/21 01:45 Anion Gap 20 mmol/L 03/13/21 01:45 BUN 34 mg/dL (7-17) H 03/13/21 01:45 Creatinine 4.5 mg/dL (0.6-1.2) H 03/13/21 01:45 Estimated GFR 11 ml/min 03/13/21 01:45 BUN/Creatinine Ratio 8 % 03/13/21 01:45 Glucose 77 mg/dL (65-100) 03/13/21 01:45 Calcium 10.1 mg/dL (8.4-10.2) 03/13/21 01:45 Total Bilirubin 0.50 mg/dL (0.1-1.2) 03/13/21 01:45 Direct Bilirubin 0.2 mg/dL (0-0.2) 03/13/21 01:45 Indirect Bilirubin 0.3 mg/dL 03/13/21 01:45 AST 109 units/L (5-40) H 03/13/21 01:45 ALT 62 units/L (7-56) H 03/13/21 01:45 Alkaline Phosphatase 126 units/L (35-129) 03/13/21 01:45 Total Creatine Kinase 37 units/L (30-135) 03/13/21 01:45 CK-MB (CK-2) 3.7 ng/mL (0.0-4.0) 03/13/21 01:45 CK-MB (CK-2) Rel Index 10.0 (0-4) H 03/13/21 01:45 Troponin T 0.135 ng/mL (0.00-0.029) H* 03/13/21 01:45 Total Protein 6.0 g/dL (6.3-8.2) L 03/13/21 01:45 Albumin 2.8 g/dL (3.9-5) L 03/13/21 01:45 Albumin/Globulin Ratio 0.9 % 03/13/21 01:45 Triglycerides 89 mg/dL (2-149) 03/13/21 01:45 Cholesterol 81 mg/dL (50-199) 03/13/21 01:45 LDL Cholesterol Direct 44 mg/dL (50-130) L 03/13/21 01:45 HDL Cholesterol 28 mg/dL (40-59) L 03/13/21 01:45 Cholesterol/HDL Ratio 2.89 % 03/13/21 01:45 Assessment and Plan Assessment and plan: Due to patient's current mental status information was obtained from the ED physician and family " patient is a 75-year-old female with history of CVA, hypertension, diabetes, congestive heart failure and COPD. Patient brought to the emergency room via EMS from home for evaluation of possible stroke. Patient daughter who accompanied her mother stated that she was fine until this morning when she left work around 6 AM and when she came back around 4PM found her more lethargic and unable to move her right upper and lower extremity. She also noted that she is confused and have decreased responsiveness. She stated that she checked her sugar and it was more than 500 she given insulin but no improvement. She also stated that she had a stroke in 2013 with residual right side weakness however she walk with a walker sometimes. Stroke protocol immediately initiated and patient moved to CT for stat CT brain without contrast. Stroke neurology consulted and Dr. Franc Guillen I examined the patient via video conference. CT brain showed no hemorrhage. Patient is not a TPA candidate since symptoms is more than 4.5 hours. -: Sudden Patient was recommended for admission for further evaluation. During my examination she remains aphasic with significant right-sided paresis. per family she has been aphasic since 2013 although she could make some audible sound and aware, in the recent months that has been declining and worse in the last 3 days resulting in ineffective dialysis 2 days ago and in the last day could not stay awake, she had repeated vomiting episode. She also reports that she was recently taken off xeralto due to severe nose bleeds about a week ago and was placed on full dose asa with 4 doses of baby aspirin. Big bruise on her leg noted 2 days ago. Otherwise the patient is unable to provide any information due to her mental status, I did discuss medication list with the daughter. Acute metabolic encephalopathy CVA with residual right hemiparesis and aphasia Gastroenteritis with recent nausea vomiting End-stage renal disease on hemodialysis COPD Hypothyroidism Thrombocytopenia Diabetes mellitus Possible gastroparesis related to diabetes Elevated Troponin Transaminitis Plan Admit on stroke protocol Cardiology, Neurology and Nephrology consult MRI/MRA per neurology Continue ASA, was recently taken off Xarelto due to severe epistaxis Resume appropriate home meds including ASA and statin PT/OT/SPEECH Monitor H/H and Plt Aspiration and fall precaution Advance Directives: Yes Plan of care discussed with patient/family: Yes
[2021-03-13] MEDS ORDERED: ACETAMINOPHEN 325 MG TAB PO PRN (07:57)
[2021-03-13] MEDS ORDERED: DEXTROSE 50% IN WATER (25GM) 50 ML SYRINGE IV PRN (07:57)
[2021-03-13] MEDS ORDERED: NALOXONE 0.4 MG/1 ML INJ IV PRN (07:57)
[2021-03-13] MEDS ORDERED: oxyCODONE /ACETAMINOPHEN 5-325MG TAB PO PRN (07:57)
[2021-03-13] MEDS ORDERED: ALBUTEROL 2.5 MG/3 ML NEBU IH PRN (08:00)
--- NOTE | 2021-03-13 09:39 | Consultation ---
History of Present Illness Consult date: 03/13/21 Reason for Consult: worsening of right side weakness History of present illness: AMS with worsening right hemiparesis History of present illness: patient is a 75-year-old female with history of CVA, hypertension, diabetes, congestive heart failure and COPD. Patient brought to the emergency room via EMS from home for evaluation of possible stroke. Patient daughter who accompanied her mother stated that she was fine until this morning when she left work around 6 AM and when she came back around 4PM found her more lethargic and unable to move her right upper and lower extremity. She also noted that she is confused and have decreased responsiveness. She stated that she checked her sugar and it was more than 500 she given insulin but no improvement. She also stated that she had a stroke in 2013 with residual right side weakness however she walk with a walker sometimes. Stroke protocol immediately initiated stat CT brain showed no hemorrhage. Patient is not a TPA candidate since symptoms is more than 4.5 hours. Patient was recommended for admission for further evaluation. During my examination she remains aphasic with significant right-sided paresis. per family she has been aphasic since 2013 although she could make some audible sound and aware, in the recent months that has been declining and worse in the last 3 days resulting in ineffective dialysis 2 days ago and in the last day could not stay awake, she had repeated vomiting episode. She also reports that she was recently taken off xeralto due to severe nose bleeds about a week ago and was placed on full dose asa with 4 doses of baby aspirin. Big bruise on her leg noted 2 days ago. Otherwise the patient is unable to provide any information due to her mental status, Past History Past Medical History: CAD, COPD, diabetes, heart failure, hypertension, hyperlipidemia, stroke, other (recent Nose bleed) Social history: no significant social history, lives with family Family history: no significant family history Past History Past Medical History: hypertension, hyperlipidemia, renal failure, stroke Medications and Allergies Allergies Allergy/AdvReac Type Severity Reaction Status Date / Time codeine Allergy Intermediate Unknown Verified 09/07/20 13:26 Penicillins AdvReac Severe Unknown Verified 09/07/20 13:26 Home Medications Medication Instructions Recorded Confirmed Last Taken Type FLUoxetine [PROzac] 20 mg PO QDAY 02/10/14 03/15/19 01/24/19 History allopurinoL [Zyloprim] 100 mg PO QDAY 02/10/14 03/15/19 01/24/19 History Baclofen [Lioresal] 5 mg PO BID #60 tablet 04/05/14 03/15/19 01/24/19 Rx Gabapentin 400 mg PO BID #60 capsule 04/05/14 03/15/19 01/24/19 Rx Furosemide [Lasix TAB] 80 mg PO DAILY 01/24/19 03/15/19 01/24/19 History Levothyroxine [Synthroid] 50 mcg PO QAM 01/24/19 03/15/19 01/25/19 05:00 History Losartan [Cozaar] 100 mg PO QDAY 01/24/19 03/15/19 01/24/19 History Metoprolol Xl [Metoprolol 50 mg PO DAILY 01/24/19 03/15/19 01/25/19 05:00 History SUCCINATE ER TAB] Potassium Chloride [K-Dur] 20 meq PO QDAY 01/24/19 03/15/19 01/24/19 History Torsemide [Demadex] 20 mg PO DAILY 01/24/19 03/15/19 01/24/19 History HYDROcodone/APAP 5-325 [[place] 1 each PO Q6HR PRN #20 tablet 01/25/19 03/15/19 Unknown Rx 5-325 mg TAB] Methocarbamol [Robaxin] 500 mg PO TID PRN #15 tablet 09/26/19 Unknown Rx AtorvaSTATin [Lipitor] 20 mg PO QHS #30 tablet 09/10/20 Unknown Rx Insulin NPH/Regular [NovoLIN 70/30] 25 unit SUB-Q BIDDIAB #1 units 09/10/20 U nknown Rx Lactulose [Cephulac] 20 gm PO QDAY PRN #7 oral.liqd 09/10/20 Unknown Rx Warfarin [Coumadin] 10 mg PO QDAY@1700 #20 tablet 09/10/20 Unknown Rx Active Meds: Active Medications Acetaminophen (Acetaminophen 325 Mg Tab) 650 mg PO Q4H PRN PRN Reason: Pain, Mild (1-3) Albuterol (Albuterol 2.5 Mg/3 Ml Nebu) 2.5 mg IH Q3HRT PRN PRN Reason: Shortness Of Breath Albuterol/Ipratropium (Ipratropium/Albuterol Sulfate 3 Ml Ampul.Neb) 1 ampul IH Q6HRT PENDING SALE TO [facility] Aspirin (Aspirin 325 Mg Tab) 325 mg PO QDAY [facility] Atorvastatin Calcium (Atorvastatin 40 Mg Tab) 40 mg PO QHS PENDING SALE TO [facility] Bisacodyl (Bisacodyl 10 Mg Rect Supp) 10 mg MA QDAY PRN PRN Reason: Constipation Dextrose (Dextrose 50% In Water (25gm) 50 Ml Syringe) 50 ml IV Q30MIN PRN; Protocol PRN Reason: Hypoglycemia Famotidine (Famotidine 20 Mg/2 Ml Inj) 20 mg IV BID PENDING SALE TO [facility] Insulin Human Lispro (Insulin Lispro 100 Unit/Ml) 0 unit SUB-Q ACHS [facility]; Protocol Magnesium Hydroxide (Magnesium Hydroxide (Mom) Oral Liqd Udc) 30 ml PO Q4H PRN PRN Reason: Constipation Metoclopramide HCl (Metoclopramide 10 Mg Tab) 10 mg PO Q6H PRN PRN Reason: Nausea And Vomiting Naloxone HCl (Naloxone 0.4 Mg/1 Ml Inj) 0.1 mg IV Q2MIN PRN PRN Reason: Res Rate </= 8 or 02 SAT < 92% Ondansetron HCl (Ondansetron 4 Mg/2 Ml Inj) 4 mg IV Q8H PRN PRN Reason: Nausea And Vomiting Oxycodone/Acetaminophen (Oxycodone /Acetaminophen 5-325mg Tab) 1 tab PO Q6H PRN PRN Reason: Pain, Moderate (4-6) Promethazine HCl (Promethazine 25 Mg Rect Supp) 25 mg MA Q6H PRN PRN Reason: Nausea And Vomiting Sodium Chloride (Sodium Chloride 0.9% 10 Ml Flush Syringe) 10 ml IV PRN PRN PRN Reason: LINE FLUSH Physical Examination - Vital Signs Vital Signs: Vital Signs Pulse Pulse Ox 62 96 03/13/21 01:53 03/13/21 01:53 - Constitutional General appearance: uncomfortable - EENT EENT: Present: PERRL, mucous membranes moist - Respiratory Respiratory: Present: chest non-tender, lungs clear, crackles - Cardiovascular Cardiovascular: Present: normal S1, normal S2 Extremities: Present: no peripheral edema bilatateraly, no clubbing, cyanosis - Gastrointestinal Gastrointestinal: Present: normoactive bowel sounds - Neurologic Cranial nerve examination: PERRL, EOMI, other (significant aphasia with slight right facial droop ) Speech examination: motor aphasia Sensorimotor examination: other (sigificant contracture right upper and to lesser extent lower both left side intact upper and lower ) - Level of Consciousness 1a. Level of Consciousness: alert/keenly responsive - LOC Questions 1b. LOC Questions: aphasic - LOC Command 1c. LOC Commands: performs 1 task correctly - Best Gaze 2. Best Gaze: normal - Visual 3. Visual: no visual loss - Facial Palsy 4. Facial Palsy: minor paralysis - Motor Arm 5a. Motor Arm Left: no drift 5b. Motor Arm Right: no gravity effort - Motor Leg 6a. Motor Leg Left: no drift 6b. Motor Leg Right: drift - Limb Ataxia 7. Limb Ataxia: absent - Sensory 8. Sensory: normal - Best Language 9. Best Language: severe aphasia - Dysarthria 10. Dysarthria: normal - Extinction and Inattention 11. Extinction/Inattention: no abnormality - Scoring Total Score: 10 Stroke Severity: Moderate Stroke Results - Laboratory Findings CBC and BMP: 03/13/21 01:45 03/13/21 01:45 Abnormal Lab Findings: Abnormal Labs 03/13/21 03/13/21 03/13/21 01:45 01:45 01:45 MCV 101 H MCH 33 H RDW 15.8 H Plt Count 113 L Lymph % (Auto) 7.6 L [place] % (Auto) 10.4 H Lymph # (Auto) 0.6 L Seg Neutrophils % 81.5 H PT 17.9 H INR 1.49 H Sodium 135 L Chloride 97.4 L BUN 34 H Creatinine 4.5 H AST ALT CK-MB (CK-2) Rel Index 10.0 H Troponin T 0.135 H* Total Protein Albumin LDL Cholesterol Direct 44 L HDL Cholesterol 28 L 03/13/21 01:45 MCV MCH RDW Plt Count Lymph % (Auto) [place] % (Auto) Lymph # (Auto) Seg Neutrophils % PT INR Sodium Chloride BUN Creatinine AST 109 H ALT 62 H CK-MB (CK-2) Rel Index Troponin T Total Protein 6.0 L Albumin 2.8 L LDL Cholesterol Direct HDL Cholesterol Assessment and Plan Assessment and Plan Assessment and plan: Due to patient's current mental status information was obtained from the ED physician and family " patient is a 75-year-old female with history of CVA, hypertension, diabetes, congestive heart failure and COPD. Patient brought to the emergency room via EMS from home for evaluation of possible stroke. Patient daughter who accompanied her mother stated that she was fine until this morning when she left work around 6 AM and when she came back around 4PM found her more lethargic and unable to move her right upper and lower extremity. She also noted that she is confused and have decreased responsiveness. She stated that she checked her sugar and it was more than 500 she given insulin but no improvement. She also stated that she had a stroke in 2014 with residual right side weakness however she walk with a walker sometimes. Stroke protocol immediately initiated and patient moved to CT for stat CT brain without contrast. Stroke neurology consulted CT brain showed no hemorrhage. Patient is not a TPA candidate since symptoms is more than 4.5 hours. Patient was recommended for admission for further evaluation. During my examination she remains aphasic with significant right-sided paresis. per family she has been aphasic since 2013 although she could make some audible sound and aware, in the recent months that has been declining and worse in the last 3 days resulting in ineffective dialysis 2 days ago and in the last day could not stay awake, she had repeated vomiting episode. She also reports that she was recently taken off xeralto due to severe nose bleeds about a week ago and was placed on full dose asa with 4 doses of baby aspirin. Big bruise on her leg noted 2 days ago. Otherwise the patient is unable to provide any information due to her mental status, I did discuss medication list with the daughter. #hx and Exam are suggestive of worsening of right side weakness she is with hx of aphasia since 2013 -possibility of encephalopathy related to underlying infection , worsening of kikney function and or new CVa can not be exclueded - she is of xarelto due to increase bleeding tendency - she is with witnessed asterexsis left arm related to worsening of kidney function #End-stage renal disease on hemodialysis -resume dialysis #COPD #Hypothyroidism #Thrombocytopenia #Diabetes mellitus #Possible gastroparesis related to diabetes #Elevated Troponin #Transaminitis PLAN Admit on stroke protocol MRI/MRA per neurology Continue ASA, was recently taken off Xarelto due to severe epistaxis Resume appropriate home meds including ASA and statin PT/OT/SPEECH Monitor H/H and Plt Aspiration and fall precaution dialysis -ammonia level -treat underlying infection over all prognosis is quarded
[2021-03-13] MEDS ORDERED: METOCLOPRAMIDE 10 MG TAB PO PRN (10:00)
[2021-03-13] MEDS ORDERED: ONDANSETRON 4 MG/2 ML INJ IV PRN (10:00)
[2021-03-13] MEDS ORDERED: PROMETHAZINE 25 MG RECT SUPP PR PRN (10:00)
[2021-03-13] MEDS ORDERED: MAGNESIUM HYDROXIDE (MOM) ORAL LIQD UDC PO PRN (10:00)
[2021-03-13] MEDS: IPRATROPIUM/ALBUTEROL SULFATE 3 ML AMPUL.NEB IH SCH ×3 (10:10→21:11)
[2021-03-13] MEDS: FAMOTIDINE 20 MG/2 ML INJ IV SCH ×2 (10:22→21:58)
[2021-03-13] MEDS: ASPIRIN 325 MG TAB PO SCH (10:22)
--- NOTE | 2021-03-13 11:07 | Consultation ---
History of Present Illness Consult date: 03/13/21 Consult reason: other (Hx of CHF) History of present illness: Patient is a 75-year old woman who is aphasic and has right sided residual from prior CVA. Review of records shows she has end stage renal disease, hypertension and diabetes. She also has a history of pulmonary embolism and carotid stenosis. Several years ago, she underwent left breast mastectomy for breast carcinoma. Patient was brought to this hospital by EMS, with worsening right sided weakness, admitted for suspected CVA. Head CT scan reports chronic left MCA infarct. No acute intracranial abnormalities. Neck CTA reports moderate to severe internal carotid artery stenosis, bilaterally. There were no report of chest pain, unusual shortness of breath, or palpitations. A chest x-ray shows cardiomegaly. There is also sternotomy wires present that is suggestive of prior bypass surgery. No evidence of interstitial edema. It is unclear if she is followed by cardiology on a routine basis. Her latest cardiac workup was done 6 months ago. She underwent a Lexiscan thallium stress test that reports a normal perfusion scan, ejection fraction 65%. In 2013, an echocardiogram demonstrated dilatation of the right heart chambers, moderate tricuspid regurgitation, and moderate pulmonary hypertension. In addition, there was moderate left ventricular dysfunction and evidence of at least mild mitral stenosis, mean gradient 7-8 mmHG. Past History Past Medical History: other (see HPI) Medications and Allergies Allergies Allergy/AdvReac Type Severity Reaction Status Date / Time codeine Allergy Intermediate Unknown Verified 09/07/20 13:26 Penicillins AdvReac Severe Unknown Verified 09/07/20 13:26 Home Medications Medication Instructions Recorded Confirmed Last Taken Type FLUoxetine [PROzac] 20 mg PO QDAY 02/10/14 03/15/19 01/24/19 History allopurinoL [Zyloprim] 100 mg PO QDAY 02/10/14 03/15/19 01/24/19 History Baclofen [Lioresal] 5 mg PO BID #60 tablet 04/05/14 03/15/19 01/24/19 Rx Gabapentin 400 mg PO BID #60 capsule 04/05/14 03/15/19 01/24/19 Rx Furosemide [Lasix TAB] 80 mg PO DAILY 01/24/19 03/15/19 01/24/19 History Levothyroxine [Synthroid] 50 mcg PO QAM 01/24/19 03/15/19 01/25/19 05:00 History Losartan [Cozaar] 100 mg PO QDAY 01/24/19 03/15/19 01/24/19 History Metoprolol Xl [Metoprolol 50 mg PO DAILY 01/24/19 03/15/19 01/25/19 05:00 History SUCCINATE ER TAB] Potassium Chloride [K-Dur] 20 meq PO QDAY 01/24/19 03/15/19 01/24/19 History Torsemide [Demadex] 20 mg PO DAILY 01/24/19 03/15/19 01/24/19 History HYDROcodone/APAP 5-325 [[place] 1 each PO Q6HR PRN #20 tablet 01/25/19 03/15/19 Unknown Rx 5-325 mg TAB] Methocarbamol [Robaxin] 500 mg PO TID PRN #15 tablet 09/26/19 Unknown Rx AtorvaSTATin [Lipitor] 20 mg PO QHS #30 tablet 09/10/20 Unknown Rx Insulin NPH/Regular [NovoLIN 70/30] 25 unit SUB-Q BIDDIAB #1 units 09/10/20 Unknown Rx Lactulose [Cephulac] 20 gm PO QDAY PRN #7 oral.liqd 09/10/20 Unknown Rx Warfarin [Coumadin] 10 mg PO QDAY@1700 #20 tablet 09/10/20 Unknown Rx Active Meds: Active Medications Acetaminophen (Acetaminophen 325 Mg Tab) 650 mg PO Q4H PRN PRN Reason: Pain, Mild (1-3) Albuterol (Albuterol 2.5 Mg/3 Ml Nebu) 2.5 mg IH Q3HRT PRN PRN Reason: Shortness Of Breath Albuterol/Ipratropium (Ipratropium/Albuterol Sulfate 3 Ml Ampul.Neb) 1 ampul IH Q6HRT [facility] Last Admin: 03/13/21 10:10 Dose: 1 ampul Documented by: Aspirin (Aspirin 325 Mg Tab) 325 mg PO QDAY [facility] Last Admin: 03/13/21 10:22 Dose: 325 mg Documented by: Atorvastatin Calcium (Atorvastatin 40 Mg Tab) 40 mg PO QHS [facility] Bisacodyl (Bisacodyl 10 Mg Rect Supp) 10 mg [place] QDAY PRN PRN Reason: Constipation Dextrose (Dextrose 50% In Water (25gm) 50 Ml Syringe) 50 ml IV Q30MIN PRN; Protocol PRN Reason: Hypoglycemia Famotidine (Famotidine 20 Mg/2 Ml Inj) 20 mg IV BID [facility] Last Admin: 03/13/21 10:22 Dose: 20 mg Documented by: Insulin Human Lispro (Insulin Lispro 100 Unit/Ml) 0 unit SUB-Q ACHS [facility]; Protocol Magnesium Hydroxide (Magnesium Hydroxide (Mom) Oral Liqd Udc) 30 ml PO Q4H PRN PRN Reason: Constipation Metoclopramide HCl (Metoclopramide 10 Mg Tab) 10 mg PO Q6H PRN PRN Reason: Nausea And Vomiting Naloxone HCl (Naloxone 0.4 Mg/1 Ml Inj) 0.1 mg IV Q2MIN PRN PRN Reason: Res Rate </= 8 or 02 SAT < 92% Ondansetron HCl (Ondansetron 4 Mg/2 Ml Inj) 4 mg IV Q8H PRN PRN Reason: Nausea And Vomiting Oxycodone/Acetaminophen (Oxycodone /Acetaminophen 5-325mg Tab) 1 tab PO Q6H PRN PRN Reason: Pain, Moderate (4-6) Promethazine HCl (Promethazine 25 Mg Rect Supp) 25 mg [place] Q6H PRN PRN Reason: Nausea And Vomiting Sodium Chloride (Sodium Chloride 0.9% 10 Ml Flush Syringe) 10 ml IV PRN PRN PRN Reason: LINE FLUSH Physical Examination Vital Signs Pulse Pulse Ox 62 96 03/13/21 01:53 03/13/21 01:53 General appearance: no acute distress HEENT: Positive: PERRL Neck: Positive: trachea midline Cardiac: Positive: Reg Rate and Rhythm Lungs: Positive: Decreased Breath Sounds Neuro: Positive: Weakness (right sided residual) Results 03/13/21 01:45 03/13/21 01:45 Cardiac Enzymes 03/13/21 03/13/21 Range/Units 01:45 01:45 AST 109 H (5-40) units/L CK-MB (CK-2) 3.7 (0.0-4.0) ng/mL Coagulation 03/13/21 Range/Units 01:45 PT 17.9 H (12.2-14.9) Sec. INR 1.49 H (0.87-1.13) APTT 33.3 (24.2-36.6) Sec. Lipids 03/13/21 Range/Units 01:45 Triglycerides 89 (2-149) mg/dL Cholesterol 81 (50-199) mg/dL HDL Cholesterol 28 L (40-59) mg/dL Cholesterol/HDL Ratio 2.89 % CBC 03/13/21 Range/Units 01:45 WBC 7.5 (4.5-11.0) K/mm3 RBC 3.70 (3.65-5.03) M/mm3 Hgb 12.1 (10.1-14.3) gm/dl Hct 37.2 (30.3-42.9) % Plt Count 113 L (140-440) K/mm3 Lymph # (Auto) 0.6 L (1.2-5.4) K/mm3 [place] # (Auto) 0.8 (0.0-0.8) K/mm3 Eos # (Auto) 0.0 (0.0-0.4) K/mm3 Baso # (Auto) 0.0 (0.0-0.1) K/mm3 Comprehensive Metabolic Panel 03/13/21 03/13/21 Range/Units 01:45 01:45 Sodium 135 L (137-145) mmol/L Potassium 4.7 (3.6-5.0) mmol/L Chloride 97.4 L (98-107) mmol/L Carbon Dioxide 22 (22-30) mmol/L BUN 34 H (7-17) mg/dL Creatinine 4.5 H (0.6-1.2) mg/dL Glucose 77 (65-100) mg/dL Calcium 10.1 (8.4-10.2) mg/dL Direct Bilirubin 0.2 (0-0.2) mg/dL Indirect Bilirubin 0.3 mg/dL AST 109 H (5-40) units/L ALT 62 H (7-56) units/L Alkaline Phosphatase 126 (35-129) units/L Total Protein 6.0 L (6.3-8.2) g/dL Albumin 2.8 L (3.9-5) g/dL Assessment and Plan - Patient Problems (1) Acute CVA (cerebrovascular accident) Current Visit: Yes Status: Acute
[2021-03-13] MEDS ORDERED: LACTULOSE 20 GM/30 ML ORAL LIQD PO PRN (13:00)
[2021-03-13] MEDS: INSULIN LISPRO 100 UNIT/ML SUB-Q SCH ×3 (13:45→21:58)
--- NOTE | 2021-03-13 14:19 | Magnetic Resonance Report ---
MR brain wo con INDICATION / CLINICAL INFORMATION: 75 years Female; stroke. TECHNIQUE: Multiplanar, multisequence MR images of the brain were obtained. COMPARISON: No previous MRI exams available for comparison. FINDINGS: There is encephalomalacia involving the left parietotemporal region and basal ganglia most consistent with old left MCA infarct. There is associated ex vacuo dilatation of the left lateral ventricle cher ng with layering degeneration of the left cerebral peduncle. The diffusion imaging reveals no evidenc e of acute infarction. BRAIN / INTRACRANIAL CONTENTS: The ventricular system is otherwise unremarkable. There is mild atroph ic changes involving the cerebellum and right cerebral hemisphere. No extra-axial fluid collections a re identified. CRANIOCERVICAL JUNCTION: No significant abnormality. VASCULAR FLOW-VOIDS: There is heterogeneous signal involving portions of the distal left ICA indicati ve of decreased flow. The vertebral basilar system is unremarkable. The MR a head will be dictated se parately. ORBITS: No significant abnormality of visualized orbits. SINUSES / MASTOIDS: No significant abnormality in the visualized paranasal sinuses or mastoid air karrie ls. ADDITIONAL FINDINGS: None. IMPRESSION: 1. This old left MCA infarct with encephalomalacia as described. There is no evidence of acute infarc tion. Signer Name: Naresh Bills MD Signed: 03/13/2021 2:15 PM Workstation Name: [id number]
--- NOTE | 2021-03-13 14:37 | Magnetic Resonance Report ---
MR MRA/MRV head wo con INDICATION / CLINICAL INFORMATION: 75 years Female; stroke. TECHNIQUE: 3-D time of flight. NASCET type criteria used to evaluate stenoses. COMPARISON: None available. FINDINGS: INTERNAL CAROTID ARTERIES: There is absence of signal within the left ICA to the anterior communicati ng segment compatible with occlusion. There is component of collateral flow via the left posterior co mmunicating artery. There is no significant stenosis involving right ICA. VERTEBROBASILAR SYSTEM: The motion degrades the image quality. However, there is developmental hypopl julita of the distal right vertebral artery. There is no significant stenosis involving the basilar art kenny. CEREBRAL ARTERIES: There is encephalomalacia involving visualized left parieto-occipital region oziel tible with old infarct. There is relative possibly of vessels within this corresponding region. There is no significant focal narrowing involving more proximal left MCA segments. The remaining cerebral vessels also demonstrates appropriate caliber without significant focal narrow ing. ANEURYSM: None identified. 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 Signer Name: Naresh Bills MD Signed: 03/13/2021 2:32 PM Workstation Name: [id number]
[2021-03-13] MEDS: FUROSEMIDE 40 MG TAB PO SCH (14:49)
--- NOTE | 2021-03-13 15:47 | Consultation ---
History of Present Illness - Reason for Consult Consult date: 03/13/21 end stage renal disease - History of Present Illness This is a 75-year-old with end-stage renal disease on hemodialysis, hyp ertension, diabetes, history of right-sided residual deficits from prior stroke who presented with worsening right-sided weakness to the ER and was subsequently admitted for further management. Nephrology was consulted for ESRD management. History has been obtained from chart as patient was somnolent and altered at the time of visit. Past History Past Medical History: hypertension, hyperlipidemia, renal failure, stroke Social history: no significant social history, lives with family Family history: no significant family history Medications and Allergies Allergies Allergy/AdvReac Type Severity Reaction Status Date / Time codeine Allergy Intermediate Unknown Verified 09/07/20 13:26 Penicillins AdvReac Severe Unknown Verified 09/07/20 13:26 Home Medications Medication Instructions Recorded Confirmed Last Taken Type FLUoxetine [PROzac] 20 mg PO QDAY 02/10/14 03/15/19 01/24/19 History allopurinoL [Zyloprim] 100 mg PO QDAY 02/10/14 03/13/21 01/24/19 History Baclofen [Lioresal] 5 mg PO BID #60 tablet 04/05/14 03/13/21 01/24/19 Rx Gabapentin 400 mg PO BID #60 capsule 04/05/14 03/13/21 01/24/19 Rx Furosemide [Lasix TAB] 80 mg PO DAILY 01/24/19 03/13/21 01/24/19 History Levothyroxine [Synthroid] 50 mcg PO QAM 01/24/19 03/13/21 01/25/19 05:00 History Losartan [Cozaar] 100 mg PO QDAY 01/24/19 03/15/19 01/24/19 History Metoprolol Xl [Metoprolol 50 mg PO DAILY 01/24/19 03/13/21 01/25/19 05:00 His tory SUCCINATE ER TAB] Potassium Chloride [K-Dur] 20 meq PO QDAY 01/24/19 03/13/21 01/24/19 History Torsemide [Demadex] 20 mg PO DAILY 01/24/19 03/15/19 01/24/19 History HYDROcodone/APAP 5-325 [[place] 1 each PO Q6HR PRN #20 tablet 01/25/19 03/15/19 Unknown Rx 5-325 mg TAB] Methocarbamol [Robaxin] 500 mg PO TID PRN #15 tablet 09/26/19 03/13/21 Unknown Rx AtorvaSTATin [Lipitor] 20 mg PO QHS #30 tablet 09/10/20 Unknown Rx Insulin NPH/Regular [NovoLIN 70/30] 25 unit SUB-Q BIDDIAB #1 units 09/10/20 03/13/21 Unknown Rx Lactulose [Cephulac] 20 gm PO QDAY PRN #7 oral.liqd 09/10/20 Unknown Rx Warfarin [Coumadin] 10 mg PO QDAY@1700 #20 tablet 09/10/20 Unknown Rx Rosuvastatin Calcium [Crestor] 10 mg PO 03/13/21 Unknown History Active Meds: Active Medications Acetaminophen (Acetaminophen 325 Mg Tab) 650 mg PO Q4H PRN PRN Reason: Pain, Mild (1-3) Last Admin: 03/13/21 14:49 Dose: 650 mg Documented by: Albuterol (Albuterol 2.5 Mg/3 Ml Nebu) 2.5 mg IH Q3HRT PRN PRN Reason: Shortness Of Breath Albuterol/Ipratropium (Ipratropium/Albuterol Sulfate 3 Ml Ampul.Neb) 1 ampul IH Q6HRT [facility] Last Admin: 03/13/21 10:10 Dose: 1 ampul Documented by: Allopurinol (Allopurinol 100 Mg Tab) 100 mg PO QDAY [facility] Aspirin (Aspirin 325 Mg Tab) 325 mg PO QDAY [facility] Last Admin: 03/13/21 10:22 Dose: 325 mg Documented by: Atorvastatin Calcium (Atorvastatin 40 Mg Tab) 40 mg PO QHS [facility] Baclofen (Baclofen 10 Mg Tab) 5 mg PO BID [facility] Bisacodyl (Bisacodyl 10 Mg Rect Supp) 10 mg [place] QDAY PRN PRN Reason: Constipation Dextrose (Dextrose 50% In Water (25gm) 50 Ml Syringe) 50 ml IV Q30MIN PRN; Protocol PRN Reason: Hypoglycemia Famotidine (Famotidine 20 Mg/2 Ml Inj) 20 mg IV BID [facility] Last Admin: 03/13/21 10:22 Dose: 20 mg Documented by: Furosemide (Furosemide 40 Mg Tab) 80 mg PO DAILY [facility] Last Admin: 03/13/21 14:49 Dose: 80 mg Documented by: Gabapentin (Gabapentin 400 Mg Cap) 400 mg PO BID [facility] Insulin Human Isoph/Insulin Regular (Insulin Nph/Regular 70/30 Inj) 30 unit SUB-Q BIDDIAB [facility] Insulin Human Lispro (Insulin Lispro 100 Unit/Ml) 0 unit SUB-Q ACHS [facility]; Protocol Last Admin: 03/13/21 13:45 Dose: Not Given Documented by: Lactulose (Lactulose 20 Gm/30 Ml Oral Liqd) 20 gm PO QDAY PRN PRN Reason: Constipation Levothyroxine Sodium (Levothyroxine 50 Mcg Tab) 50 mcg PO DAILY@0600 [facility] Magnesium Hydroxide (Magnesium Hydroxide (Mom) Oral Liqd Udc) 30 ml PO Q4H PRN PRN Reason: Constipation Metoclopramide HCl (Metoclopramide 10 Mg Tab) 10 mg PO Q6H PRN PRN Reason: Nausea And Vomiting Naloxone HCl (Naloxone 0.4 Mg/1 Ml Inj) 0.1 mg IV Q2MIN PRN PRN Reason: Res Rate </= 8 or 02 SAT < 92% Ondansetron HCl (Ondansetron 4 Mg/2 Ml Inj) 4 mg IV Q8H PRN PRN Reason: Nausea And Vomiting Oxycodone/Acetaminophen (Oxycodone /Acetaminophen 5-325mg Tab) 1 tab PO Q6H PRN PRN Reason: Pain, Moderate (4-6) Potassium Chloride (Potassium Chloride Er 20 Meq Tab) 20 meq PO QDAY [facility] Promethazine HCl (Promethazine 25 Mg Rect Supp) 25 mg [place] Q6H PRN PRN Reason: Nausea And Vomiting Sodium Chloride (Sodium Chloride 0.9% 10 Ml Flush Syringe) 10 ml IV PRN PRN PRN Reason: LINE FLUSH Review of Systems ROS unobtainable: due to mental status Exam - Vital Signs Vital signs: Vital Signs Pulse Pulse Ox 62 96 03/13/21 01:53 03/13/21 01:53 - Physical Exam Narrative exam: General appearance: No acute distress EENT: Anicteric sclera, hearing intact Neck: Supple Respiratory: Normal effort, CTA bilaterally Cardiovascular: RRR, no rub Extremities: No edema Abdominal: Soft, nontender, nondistended Integumentary: Dry, intact Musculoskeletal: No joint swelling or erythema Psychiatric: Unable to assess Neurologic: Somnolent. Difficult to arouse Results - Lab Results 03/13/21 01:45 03/13/21 01:45 Most recent lab results Calcium 10.1 mg/dL (8.4-10.2) 03/13/21 01:45 Assessment and Plan Assessment - End-stage renal disease on hemodialysis - Hypertension - Hyperparathyroidism - Acute encephalopathy - Elevated troponin Recommendations - Hold HD today - Monitor labs and volume status daily and assess need for dialysis session - Continue home antihypertensives - Hold antihypertensives on hemodialysis days for systolics less than 160 - No indication for epogen at this time - ESRD diet with 1.4 g/kg per day protein - Renally dose medication for creatinine clearance less than 15 cc/min - Cardiology and neurology consult note reviewed
--- NOTE | 2021-03-13 16:49 | Ultrasound Report ---
US renal BILAT INDICATION / CLINICAL INFORMATION: JOANIE. COMPARISON: None available. FINDINGS: RIGHT KIDNEY: Size = 9.6 cm. - Echogenicity: Increased echogenicity and decreased visualization of the renal pyramids. - Cortical thickness: Normal. - Hydronephrosis: None. - Cyst or mass: None. - Stones: None seen.. LEFT KIDNEY: Size = 9.6 cm. - Echogenicity: Increased echogenicity and decreased visualization of the renal pyramids. - Cortical thickness: Normal. - Hydronephrosis: None. - Cyst or mass: None. - Stones: No definite stones. URINARY BLADDER: No significant abnormality. FREE FLUID: None. ADDITIONAL FINDINGS: None. IMPRESSION 1. Findings of medical renal disease without other significant sonographic abnormality. Signer Name: Hector Arriaga MD Signed: 03/13/2021 4:45 PM Workstation Name: [id number]
[2021-03-13] MEDS: BACLOFEN 10 MG TAB PO SCH ×3 (17:19→21:56)
[2021-03-13] MEDS: INSULIN NPH/REGULAR 70/30 INJ SUB-Q SCH (17:36)
[2021-03-13] MEDS: GABAPENTIN 400 MG CAP PO SCH (21:58)
[2021-03-14] MEDS: traMADol 50 MG TAB PO PRN (02:56)
[2021-03-14] MEDS: IPRATROPIUM/ALBUTEROL SULFATE 3 ML AMPUL.NEB IH SCH ×4 (03:03→20:46)
[2021-03-14 03:22] LABS: Bilirubin,Urine NEG (Negative); Blood,Urine NEG (Negative); Color,Urine Amber (Yellow)
[2021-03-14] MEDS: LEVOTHYROXINE 50 MCG TAB PO SCH (05:43)
[2021-03-14] MEDS: INSULIN LISPRO 100 UNIT/ML SUB-Q SCH ×3 (08:53→23:02)
[2021-03-14] MEDS: INSULIN NPH/REGULAR 70/30 INJ SUB-Q SCH (08:54)
[2021-03-14] MEDS ORDERED: SODIUM CHLORIDE 0.9% 100 ML IV PRN (09:21)
--- NOTE | 2021-03-14 09:57 | Progress Note ---
Assessment and Plan Assessment and Plan Assessment and plan: Due to patient's current mental status information was obtained from the ED physician and family " patient is a 75-year-old female with history of CVA, hypertension, diabetes, congestive heart failure and COPD. Patient brought to the emergency room via EMS from home for evaluation of possible stroke. Patient daughter who accompanied her mother stated that she was fine until this morning when she left work around 6 AM and when she came back around 4PM found her more lethargic and unable to move her right upper and lower extremity. She also noted that she is confused and have decreased responsiveness. She stated that she checked her sugar and it was more than 500 she given insulin but no improvement. She also stated that she had a stroke in 2013 with residual right side weakness however she walk with a walker sometimes. -CT brain showed no hemorrhage. -Patient is not a TPA candidate since symptoms is more than 4.5 hours. -She also reports that she was recently taken off xeralto due to severe nose bleeds about a week ago and was placed on full dose asa with 4 doses of baby aspirin. Big bruise on her leg noted 2 days ago. Otherwise the patient is unable to provide any information due to her mental status, I did discuss medication list with the daughter. #hx and Exam are suggestive of worsening of right side weakness she is with hx of aphasia since 2013 -possibility of encephalopathy related to underlying infection , worsening of kidney function all improved today she is with no sign off new CVA on MRI brain - she is off xarelto due to increase bleeding tendency # carotid stenosis -right ? 70%, left 90% On CTA --- On MRA complet occlusion of left ICA ? --- Recommend Vascualr surgery to see - she is currently on ASA 81 mg and lipitor #End-stage renal disease on hemodialysis -resume dialysis #COPD #Hypothyroidism #Thrombocytopenia #Diabetes mellitus #Possible gastroparesis related to diabetes #Elevated Troponin #Transaminitis PLAN Continue ASA, was recently taken off Xarelto due to severe epistaxis Resume appropriate home meds including ASA and statin PT/OT/SPEECH Monitor H/H and Plt Aspiration and fall precaution dialysis -ammonia level pending -treat underlying infection -need vascualr surgery openion over all prognosis is quarded will follow Subjective Date of service: 03/14/21 Principal diagnosis: confusion and right side weakness Interval history: doing much better today alert interactive able to sit bed side with assistance MRI brain with no new event conflicting finding between CTA and MRA neck !!! need vascualr surgery to see Objective - Vital Sign Vital Signs - 12hr 03/13/21 03/13/21 03/13/21 22:00 23:13 23:19 Temperature 98.5 F Pulse Rate 64 80 Respiratory 18 20 Rate Blood Pressure 135/111 Blood Pressure [Left] O2 Sat by Pulse 97 97 Oximetry 03/14/21 03/14/21 03/14/21 03:40 06:00 09:21 Temperature 97.2 F L 97.4 F L Pulse Rate 78 69 74 Respiratory 20 18 Rate Blood Pressure 136/62 Blood Pressure 141/55 [Left] O2 Sat by Pulse 89 85 Oximetry - General Apperance Constitutional: comfortable - EENT EENT: PERRL, mucous membranes moist - Respiratory Respiratory: chest non-tender, lungs clear, rhonchi - Cardiovascular Cardiovascular: normal S1, normal S2 Extremities: non-pitting edema - Gastrointestinal Gastrointestinal: normoactive bowel sounds - Integumentary Integumentary: normal - Neurologic Cranial nerve examination: PERRL, EOMI, other (slight right facial asymmetry ) Speech examination: motor aphasia Detailed motor examination: other Reflex and gait examination: other (No Asterexsis is noted today on left upper side) - Laboratory Findings CBC and BMP: 03/13/21 01:45 03/13/21 01:45 Abnormal Lab Findings: Abnormal Labs 03/13/21 03/13/21 03/13/21 01:45 01:45 01:45 MCV 101 H MCH 33 H RDW 15.8 H Plt Count 113 L Lymph % (Auto) 7.6 L [place] % (Auto) 10.4 H Lymph # (Auto) 0.6 L Seg Neutrophils % 81.5 H PT 17.9 H INR 1.49 H Sodium 135 L Chloride 97.4 L BUN 34 H Creatinine 4.5 H POC Glucose AST ALT CK-MB (CK-2) CK-MB (CK-2) Rel Index 10.0 H Troponin T 0.135 H* Total Protein Albumin LDL Cholesterol Direct 44 L HDL Cholesterol 28 L Ur Specific [place] Urine WBC (Auto) 03/13/21 03/13/21 03/13/21 01:45 10:14 15:55 MCV MCH RDW Plt Count Lymph % (Auto) [place] % (Auto) Lymph # (Auto) Seg Neutrophils % PT INR Sodium Chloride BUN Creatinine POC Glucose 143 H AST 109 H ALT 62 H CK-MB (CK-2) 5.0 H CK-MB (CK-2) Rel Index 9.8 H Troponin T 0.225 H* D Total Protein 6.0 L Albumin 2.8 L LDL Cholesterol Direct HDL Cholesterol Ur Specific [place] Urine WBC (Auto) 03/13/21 03/14/21 21:29 Unknown MCV MCH RDW Plt Count Lymph % (Auto) [place] % (Auto) Lymph # (Auto) Seg Neutrophils % PT INR Sodium Chloride BUN Creatinine POC Glucose 171 H AST ALT CK-MB (CK-2) CK-MB (CK-2) Rel Index Troponin T Total Protein Albumin LDL Cholesterol Direct HDL Cholesterol Ur Specific [place] 1.046 H Urine WBC (Auto) 8.0 H
[2021-03-14] MEDS ORDERED: NON-FORMULARY EACH (Furosemide [Lasix Tab] 80 MG Tablet) PO SCH (10:00)
[2021-03-14] MEDS: GABAPENTIN 400 MG CAP PO SCH ×3 (10:01→21:13)
[2021-03-14] MEDS: allopurinoL 100 MG TAB PO SCH ×2 (10:01→10:10)
[2021-03-14] MEDS: ASPIRIN 325 MG TAB PO SCH ×2 (10:02→10:10)
[2021-03-14] MEDS: BACLOFEN 10 MG TAB PO SCH ×3 (10:02→21:13)
[2021-03-14] MEDS: FUROSEMIDE 40 MG TAB PO SCH ×2 (10:02→10:10)
[2021-03-14] MEDS: POTASSIUM CHLORIDE ER 20 MEQ TAB PO SCH ×2 (10:02→10:10)
[2021-03-14] MEDS: FAMOTIDINE 20 MG/2 ML INJ IV SCH ×2 (10:02→10:10)
--- NOTE | 2021-03-14 11:08 | Progress Note ---
Assessment and Plan Transient Afib pt spontaneously reverted to sinus rhythm Aphasia from a previous stroke previously considered no longer a candidate for oral anticoagulation due to severe epistaxis Carotid stenosis End-stage renal disease on HD Diabetes An echocardiogram shows dilatation of the right heart chambers, moderate tricuspid regurgitation, and at least moderate pulmonary hypertension. In addition, there was mild mitral stenosis. Normal left ventricular systolic function, ejection fraction 55-60%. Bubble study was negative. Will check a TSH and magnesium and use beta blockers for suppression of transient atrial fibrillation. Patient was previously considered no longer a candidate for oral anticoagulation due to severe epistaxis. Subjective Date of service: 03/14/21 Principal diagnosis: confusion and right side weakness Interval history: There was transient atrial fibrillation on telemetry today. It is reported the patient was in a physical therapy session during the transient event but she remained asymptomatic. Currently, she is stable sinus rhythm on telemetry. Objective Vital Signs Temp Pulse Pulse Resp Resp BP BP 03/14/21 09:52 03/14/21 09:21 97.4 F L 74 18 141/55 03/14/21 06:00 69 03/14/21 03:40 97.2 F L 78 20 136/62 03/13/21 23:19 20 03/13/21 23:13 98.5 F 80 18 135/111 03/13/21 22:00 64 03/13/21 21:13 66 18 03/13/21 19:50 97.5 F L 64 20 139/43 03/13/21 17:15 18 03/13/21 14:48 64 18 134/50 03/13/21 14:10 61 Pulse Ox 03/14/21 09:52 100 03/14/21 09:21 85 03/14/21 06:00 03/14/21 03:40 89 03/13/21 23:19 97 03/13/21 23:13 97 03/13/21 22:00 03/13/21 21:13 100 03/13/21 19:50 99 03/13/21 17:15 96 03/13/21 14:48 100 03/13/21 14:10 - Physical Examination General: No Apparent Distress HEENT: Positive: PERRL Neck: Positive: trachea midline Cardiac: Positive: Reg Rate and Rhythm Lungs: Positive: Decreased Breath Sounds Neuro: Positive: Weakness (right sided residual) - Labs and Meds Cardiac Enzymes 03/13/21 Range/Units 10:14 CK-MB (CK-2) 5.0 H (0.0-4.0) ng/mL
--- NOTE | 2021-03-14 11:56 | Electrocardiograph Report ---
[facility] Test Date: 2021-03-13 Test Time: 02:04:25 Pat Name: ANNEL KOENIG Department: Room: A475 1 Gender: F Construction Representative: MAYRA : 1945 Requested By: ZOEY AVILES Order Number: [id number] Reading MD: Chandu Watt Measurements Intervals [place] Rate: 66 P: 50 CT: 185 QRS: 13 QRSD: 85 T: 158 QT: 469 QTc: 490 Interpretive Statements Sinus rhythm Probable left atrial enlargement Abnormal T, consider ischemia, lateral leads No previous ECG available for comparison Electronically Signed On 03-14-2021 11:55:56 EDT by Chandu Watt
[2021-03-14] MEDS ORDERED: METOPROLOL TARTRATE 25 MG TAB PO SCH (12:00)
--- NOTE | 2021-03-14 14:02 | Progress Note ---
Assessment and Plan Assessment - End-stage renal disease on hemodialysis - Hypertension - Hyperparathyroidism - Acute encephalopathy - Elevated troponin Recommendations - Plan for HD today, gentle session - Monitor labs and volume status daily and assess need for dialysis session - Continue home antihypertensives - Hold antihypertensives on hemodialysis days for systolics less than 160 - No indication for epogen at this time - ESRD diet with 1.4 g/kg per day protein - Renally dose medication for creatinine clearance less than 15 cc/min - Cardiology and neurology consult note reviewed Subjective Date of service: 03/14/21 Principal diagnosis: confusion and right side weakness Interval history: More alert this morning. Able to follow commands. Objective - Exam Narrative Exam: General appearance: No acute distress EENT: Anicteric sclera, hearing intact Neck: Supple Respiratory: Normal effort, CTA bilaterally Cardiovascular: RRR, no rub Extremities: No edema Abdominal: Soft, nontender, nondistended Integumentary: Dry, intact Musculoskeletal: No joint swelling or erythema Psychiatric: Unable to assess Neurologic: Somnolent. Difficult to arouse - Vital Signs Vital signs: Vital Signs - 12hr 03/14/21 03/14/21 03/14/21 03:40 06:00 09:21 Temperature 97.2 F L 97.4 F L Pulse Rate 78 69 74 Respiratory 20 18 Rate Blood Pressure 136/62 Blood Pressure 141/55 [Left] O2 Sat by Pulse 89 85 Oximetry 03/14/21 03/14/21 09:52 12:16 Temperature 98.6 F Pulse Rate 71 Respiratory 18 Rate Blood Pressure Blood Pressure 109/89 [Left] O2 Sat by Pulse 100 99 Oximetry - Lab 03/13/21 01:45 03/13/21 01:45 Most recent lab results Calcium 10.1 mg/dL (8.4-10.2) 03/13/21 01:45 Medications & Allergies - Medications Allergies/Adverse Reactions: Allergies codeine Allergy (Intermediate, Verified 09/07/20 13:26) Unknown Penicillins Adverse Reaction (Severe, Verified 09/07/20 13:26) Unknown Home Medications: Home Medications Medication Instructions Recorded Confirmed Last Taken Type FLUoxetine [PROzac] 20 mg PO QDAY 02/10/14 03/14/21 01/24/19 History allopurinoL [Zyloprim] 100 mg PO QDAY 02/10/14 03/13/21 01/24/19 History Baclofen [Lioresal] 5 mg PO BID #60 tablet 04/05/14 03/13/21 01/24/19 Rx Gabapentin 400 mg PO BID #60 capsule 04/05/14 03/13/21 01/24/19 Rx Furosemide [Lasix TAB] 80 mg PO DAILY 01/24/19 03/13/21 01/24/19 History Levothyroxine [Synthroid] 50 mcg PO QAM 01/24/19 03/13/21 01/25/19 05:00 History Losartan [Cozaar] 100 mg PO QDAY 01/24/19 03/14/21 01/24/19 History Metoprolol Xl [Metoprolol 50 mg PO DAILY 01/24/19 03/13/21 01/25/19 05:00 History SUCCINATE ER TAB] Potassium Chloride [K-Dur] 20 meq PO QDAY 01/24/19 03/13/21 01/24/19 History Torsemide [Demadex] 20 mg PO DAILY 01/24/19 03/14/21 01/24/19 History Methocarbamol [Robaxin] 500 mg PO TID PRN #15 tablet 09/26/19 03/13/21 Unknown Rx AtorvaSTATin [Lipitor] 20 mg PO QHS #30 tablet 09/10/20 03/14/21 Unknown Rx Insulin NPH/Regular [NovoLIN 70/30] 25 unit SUB-Q BIDDIAB #1 units 09/10/20 03/13/21 Unknown Rx Lactulose [Cephulac] 20 gm PO QDAY PRN #7 oral.liqd 09/10/20 03/14/21 Unknown Rx Warfarin [Coumadin] 10 mg PO QDAY@1700 #20 tablet 09/10/20 03/14/21 Unknown Rx Rosuvastatin Calcium [Crestor] 10 mg PO DAILY 03/13/21 03/14/21 Unknown History Active Medications: Generic Name Dose Route Start Last Admin Trade Name Freq PRN Reason Stop Dose Admin Acetaminophen 650 mg 03/13/21 07:57 03/13/21 14:49 Acetaminophen 325 Mg Tab PO 650 mg Q4H PRN Administration Pain, Mild (1-3) Albuterol 2.5 mg 03/13/21 08:00 Albuterol 2.5 Mg/3 Ml Nebu IH Q3HRT PRN Shortness Of Breath Albuterol/Ipratropium 1 ampul 03/13/21 08:00 03/14/21 09:51 Ipratropium/Albuterol Sulfate 3 Ml Ampul.Neb IH Not Given Q6HRT [facility] Allopurinol 100 mg 03/14/21 10:00 03/14/21 10:10 Allopurinol 100 Mg Tab PO Not Given QDAY [facility] Aspirin 325 mg 03/13/21 10:00 03/14/21 10:10 Aspirin 325 Mg Tab PO Not Given QDAY [facility] Atorvastatin Calcium 40 mg 03/13/21 22:00 03/13/21 21:58 Atorvastatin 40 Mg Tab PO 40 mg QHS [facility] Administration Baclofen 5 mg 03/13/21 15:30 03/14/21 10:10 Baclofen 10 Mg Tab PO Not Given BID [facility] Bisacodyl 10 mg 03/13/21 10:00 Bisacodyl 10 Mg Rect Supp [place] QDAY PRN Constipation Dextrose 50 ml 03/13/21 07:57 Dextrose 50% In Water (25gm) 50 Ml Syringe IV Q30MIN PRN Hypoglycemia Protocol Famotidine 20 mg 03/15/21 10:00 Famotidine 20 Mg/2 Ml Inj IV DAILY [facility] Furosemide 80 mg 03/13/21 13:00 03/14/21 10:10 Furosemide 40 Mg Tab PO Not Given DAILY [facility] Gabapentin 400 mg 03/13/21 22:00 03/14/21 10:09 Gabapentin 400 Mg Cap PO Not Given BID [facility] Sodium Chloride 100 mls @ 999 mls/hr 03/14/21 09:21 Nacl 0.9% IV STACIA PRN Hypotension Insulin Human Isoph/Insulin Regular 30 unit 03/13/21 17:00 03/14/21 08:54 Insulin Nph/Regular 70/30 Inj SUB-Q Not Given BIDDIAB [facility] Insulin Human Lispro 0 unit 03/13/21 11:30 03/14/21 08:53 Insulin Lispro 100 Unit/Ml SUB-Q Not Given ACHS [facility] Protocol Lactulose 20 gm 03/13/21 13:00 Lactulose 20 Gm/30 Ml Oral Liqd PO QDAY PRN Constipation Levothyroxine Sodium 50 mcg 03/14/21 06:00 03/14/21 05:43 Levothyroxine 50 Mcg Tab PO 50 mcg DAILY@0600 [facility] Administration Magnesium Hydroxide 30 ml 03/13/21 10:00 Magnesium Hydroxide (Mom) Oral Liqd Udc PO Q4H PRN Constipation Metoclopramide HCl 10 mg 03/13/21 10:00 Metoclopramide 10 Mg Tab PO Q6H PRN Nausea And Vomiting Metoprolol Tartrate 25 mg 03/14/21 12:55 Metoprolol Tartrate 25 Mg Tab PO Q6HR [facility] Naloxone HCl 0.1 mg 03/13/21 07:57 Naloxone 0.4 Mg/1 Ml Inj IV Q2MIN PRN Res Rate </= 8 or 02 SAT < 92% Ondansetron HCl 4 mg 03/13/21 10:00 Ondansetron 4 Mg/2 Ml Inj IV Q8H PRN Nausea And Vomiting Potassium Chloride 20 meq 03/14/21 10:00 03/14/21 10:10 Potassium Chloride Er 20 Meq Tab PO Not Given QDAY [facility] Promethazine HCl 25 mg 03/13/21 10:00 Promethazine 25 Mg Rect Supp [place] Q6H PRN Nausea And Vomiting Sodium Chloride 10 ml 03/13/21 07:57 Sodium Chloride 0.9% 10 Ml Flush Syringe IV PRN PRN LINE FLUSH Tramadol HCl 50 mg 03/13/21 17:30 03/14/21 02:56 Tramadol 50 Mg Tab PO 50 mg Q6H PRN Administration Pain, Moderate (4-6)
[2021-03-14 15:05] LABS: Hepatitis B Surface Antigen Non-Reactive (Negative); Hepatitis C Virus Antibody Non-Reactive (NonReactive)
[2021-03-14 15:20] LABS: Calcium 9.9 mg/dL (8.4-10.2)
--- NOTE | 2021-03-14 15:33 | Progress Note ---
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 Gastroenteritis with recent nausea vomiting End-stage renal disease on hemodialysis Paroxysmal atrial fibrillation not on AC due to history of epistaxis COPD Hypothyroidism Thrombocytopenia Diabetes mellitus type II Possible gastroparesis related to diabetes Elevated Troponin Transaminitis Hyperkalemia, likely from end-stage renal disease Plan Admitted with stroke protocol Cardiology, Neurology and Nephrology consult MRI/MRA per neurology Continue ASA, was recently taken off Xarelto due to severe epistaxis Resume appropriate home meds including ASA and statin PT/OT/SPEECH Monitor H/H and Plt Aspiration and fall precaution Brief history: patient is a 75-year-old female with history of CVA with residual right side weakness and aphasia, hypertension, diabetes, congestive heart failure with unknown EF, end-stage renal disease on hemodialysis and COPD brought to the emergency room via EMS from home with c/o AMS and unable to move her right upper and lower extremity. Her blood glucose was reported to be 500 by the family. Stroke protocol immediately initiated, Stroke neurology consulted. CT brain showed no hemorrhage. Patient was not a TPA candidate since symptoms is more than 4.5 hours. Patient was admitted for further evaluation and management. Daily clinical course: 03/14/21: MRI brain showed no acute ischemia. PT recommended subacute rehab. Medical management per cardiology. Neurology on the board. Continue to monitor the patient with stroke protocol, wait for speech therapy recommendation. production planning manager consulted for subacute rehab placement. Hemodialysis nephrology recommendation. Monitor BMP -hyperkalemia should be corrected with hemodialysis. Subjective Date of service: 03/14/21 Principal diagnosis: confusion and right side weakness Interval history: Patient seen and examined. Medical records and medication list reviewed. No acute event overnight noted by the RN. Patient appears to be aphasic with right-sided hemiparesis Discussed plan of care at bedside with patient's RN. Waiting for speech eval PT recommended subacute rehab Objective - Exam Narrative Exam: GENERAL: well-developed and well-nourished elderly female lying on bed HEENT: Normocephalic. Atraumatic. No conjunctival congestion or icterus. Patient has moist mucous membranes. NECK: Supple. Trachea midline. CHEST/LUNGS: Clear to auscultated bilaterally, breathing nonlabored. No wheezes crackles or rhonchi. HEART/CARDIOVASCULAR: Regular in rate and rhythm. S1 and S2 positive. ABDOMEN: Abdomen is soft, nontender. Patient has normal bowel sounds. SKIN: There is no rash. Warm and dry. Ecchymosis over the lower extremity NEURO: Patient is aphasic and able to lift left upper and lower extremity. Follows command. Right-sided hemiparesis MUSCULOSKELETAL: No joint effusion or tenderness. EXTRIMITY: No edema, no cyanosis or clubbing. PSYCH: Cooperative. - Constitutional Vitals: Vital Signs - 12hr 03/14/21 03/14/21 03/14/21 03:40 06:00 09:21 Temperature 97.2 F L 97.4 F L Pulse Rate 78 69 74 Pulse Rate [ Bilateral Throughout] Respiratory 20 18 Rate Respiratory Rate [Bilateral Throughout] Blood Pressure 136/62 Blood Pressure 141/55 [Left] O2 Sat by Pulse 89 85 Oximetry 03/14/21 03/14/21 03/14/21 09:52 12:16 13:45 Temperature 98.6 F 97.9 F Pulse Rate 71 67 Pulse Rate [ Bilateral Throughout] Respiratory 18 18 Rate Respiratory Rate [Bilateral Throughout] Blood Pressure 133/63 Blood Pressure 109/89 [Left] O2 Sat by Pulse 100 99 Oximetry 03/14/21 03/14/21 03/14/21 13:52 14:00 14:15 Temperature Pulse Rate 58 L 59 L 68 Pulse Rate [ Bilateral Throughout] Respiratory Rate Respiratory Rate [Bilateral Throughout] Blood Pressure 146/63 146/56 140/75 Blood Pressure [Left] O2 Sat by Pulse Oximetry 03/14/21 03/14/21 03/14/21 14:30 14:45 15:00 Temperature Pulse Rate 86 41 L 71 Pulse Rate [ Bilateral Throughout] Respiratory Rate Respiratory Rate [Bilateral Throughout] Blood Pressure 129/75 118/44 154/88 Blood Pressure [Left] O2 Sat by Pulse Oximetry 03/14/21 03/14/21 15:15 15:16 Temperature Pulse Rate 67 Pulse Rate [ 75 Bilateral Throughout] Respiratory Rate Respiratory 18 Rate [Bilateral Throughout] Blood Pressure 163/66 Blood Pressure [Left] O2 Sat by Pulse Oximetry - Labs CBC & Chem 7: 03/13/21 01:45 03/14/21 13:47 Labs: Abnormal lab results 03/13/21 03/13/21 03/14/21 Range/Units 15:55 21:29 08:43 Sodium (137-145) mmol/L Potassium (3.6-5.0) mmol/L Chloride (98-107) mmol/L BUN (7-17) mg/dL Creatinine (0.6-1.2) mg/dL Glucose (65-100) mg/dL POC Glucose 143 H 171 H 221 H (70-105) mg/dL Magnesium (1.7-2.3) mg/dL Troponin T (0.00-0.029) ng/mL TSH (0.270-4.200) mlU/mL Ur Specific [place] (1.003-1.030) Urine WBC (Auto) (0.0-6.0) /[facility] 03/14/21 03/14/21 03/14/21 Range/Units 10:48 13:47 13:47 Sodium 133 L (137-145) mmol/L Potassium 5.2 H (3.6-5.0) mmol/L Chloride 94.2 L (98-107) mmol/L BUN 42 H (7-17) mg/dL Creatinine 5.1 H (0.6-1.2) mg/dL Glucose 233 H (65-100) mg/dL POC Glucose 226 H (70-105) mg/dL Magnesium 2.50 H (1.7-2.3) mg/dL Troponin T 0.194 H* (0.00-0.029) ng/mL TSH (0.270-4.200) mlU/mL Ur Specific [place] (1.003-1.030) Urine WBC (Auto) (0.0-6.0) /[facility] 03/14/21 03/14/21 Range/Units 13:47 Unknown Sodium (137-145) mmol/L Potassium (3.6-5.0) mmol/L Chloride (98-107) mmol/L BUN (7-17) mg/dL Creatinine (0.6-1.2) mg/dL Glucose (65-100) mg/dL POC Glucose (70-105) mg/dL Magnesium (1.7-2.3) mg/dL Troponin T (0.00-0.029) ng/mL TSH 5.100 H (0.270-4.200) mlU/mL Ur Specific [place] 1.046 H (1.003-1.030) Urine WBC (Auto) 8.0 H (0.0-6.0) /[facility] HEART Score - HEART Score Troponin: Troponin T 0.194 ng/mL (0.00-0.029) H* 03/14/21 13:47
[2021-03-14] MEDS: METOPROLOL TARTRATE 25 MG TAB PO SCH (16:37)
[2021-03-15] MEDS: METOPROLOL TARTRATE 25 MG TAB PO SCH ×5 (00:35→17:49)
[2021-03-15] MEDS: LEVOTHYROXINE 50 MCG TAB PO SCH (06:58)
[2021-03-15] MEDS: IPRATROPIUM/ALBUTEROL SULFATE 3 ML AMPUL.NEB IH SCH (08:22)
[2021-03-15] MEDS: INSULIN NPH/REGULAR 70/30 INJ SUB-Q SCH ×3 (08:31→17:49)
--- NOTE | 2021-03-15 09:05 | Progress Note ---
Assessment and Plan Transient atrial tachyarrhythmia/ NSVT on metoprolol for suppression Aphasia from a previous stroke previously considered no longer a candidate for oral anticoagulation due to severe epistaxis Carotid stenosis End-stage renal disease on HD Diabetes An echocardiogram shows dilatation of the right heart chambers, moderate tricuspid regurgitation, and at least moderate pulmonary hypertension. In addition, there was mild mitral stenosis. Normal left ventricular systolic function, ejection fraction 55-60%. Bubble study was negative. Continue metoprolol for suppression of tachyarrhythmias and mitral valve disease. She is not a candidate for oral anticoagulation as previously described, but is tolerating a daily aspirin. Otherwise, conservative cardiac management. Subjective Date of service: 03/15/21 Principal diagnosis: confusion and right side weakness Interval history: Short burst of NSVT seen on telemetry. Currently, she is stable sinus rhythm. Objective Vital Signs Temp Pulse Pulse Resp Resp Resp BP 03/15/21 07:00 71 130/49 03/15/21 04:28 97.9 F 71 18 130/49 03/15/21 01:00 88 03/15/21 00:35 88 127/46 03/14/21 23:23 98.4 F 88 18 127/46 03/14/21 22:00 20 03/14/21 20:50 03/14/21 20:49 75 20 03/14/21 19:11 98.2 F 74 18 128/59 03/14/21 17:35 97.9 F 67 18 174/70 03/14/21 17:24 71 144/55 03/14/21 17:15 66 146/61 03/14/21 17:00 62 149/49 03/14/21 16:45 68 149/64 03/14/21 16:30 67 142/61 03/14/21 16:15 75 161/75 03/14/21 16:00 68 160/65 03/14/21 15:45 63 141/58 03/14/21 15:30 42 L 144/35 03/14/21 15:16 75 18 03/14/21 15:15 67 163/66 03/14/21 15:00 71 154/88 03/14/21 14:45 41 L 118/44 03/14/21 14:30 86 129/75 03/14/21 14:15 68 140/75 03/14/21 14:00 59 L 146/56 03/14/21 13:52 58 L 146/63 03/14/21 13:45 97.9 F 67 18 133/63 03/14/21 12:16 98.6 F 71 18 03/14/21 09:52 03/14/21 09:21 97.4 F L 74 18 BP Pulse Ox 03/15/21 07:00 03/15/21 04:28 86 03/15/21 01:00 03/15/21 00:35 03/14/21 23:23 84 03/14/21 22:00 03/14/21 20:50 89 03/14/21 20:49 03/14/21 19:11 80 L 03/14/21 17:35 03/14/21 17:24 03/14/21 17:15 03/14/21 17:00 03/14/21 16:45 03/14/21 16:30 03/14/21 16:15 03/14/21 16:00 03/14/21 15:45 03/14/21 15:30 03/14/21 15:16 03/14/21 15:15 03/14/21 15:00 03/14/21 14:45 03/14/21 14:30 03/14/21 14:15 03/14/21 14:00 03/14/21 13:52 03/14/21 13:45 03/14/21 12:16 109/89 99 03/14/21 09:52 100 03/14/21 09:21 141/55 85 - Physical Examination General: No Apparent Distress HEENT: Positive: PERRL Neck: Positive: trachea midline Cardiac: Positive: Reg Rate and Rhythm Lungs: Positive: Decreased Breath Sounds Neuro: Positive: Weakness (right sided residual) - Labs and Meds Comprehensive Metabolic Panel 03/14/21 Range/Units 13:47 Sodium 133 L (137-145) mmol/L Potassium 5.2 H (3.6-5.0) mmol/L Chloride 94.2 L (98-107) mmol/L Carbon Dioxide 24 (22-30) mmol/L BUN 42 H (7-17) mg/dL Creatinine 5.1 H (0.6-1.2) mg/dL Glucose 233 H (65-100) mg/dL Calcium 9.9 (8.4-10.2) mg/dL
[2021-03-15] MEDS: POTASSIUM CHLORIDE ER 20 MEQ TAB PO SCH (10:20)
[2021-03-15] MEDS: GABAPENTIN 400 MG CAP PO SCH ×2 (10:20→21:45)
[2021-03-15] MEDS: FUROSEMIDE 40 MG TAB PO SCH (10:20)
[2021-03-15] MEDS: ASPIRIN 325 MG TAB PO SCH (10:20)
[2021-03-15] MEDS: allopurinoL 100 MG TAB PO SCH (10:20)
[2021-03-15] MEDS: FAMOTIDINE 20 MG/2 ML INJ IV SCH (10:20)
[2021-03-15] MEDS: BACLOFEN 10 MG TAB PO SCH ×2 (10:21→21:46)
[2021-03-15] MEDS: INSULIN LISPRO 100 UNIT/ML SUB-Q SCH ×4 (10:22→21:46)
[2021-03-15] MEDS ORDERED: D5W/0.9% NACL 1,000 ML IV SCH (11:00)
--- NOTE | 2021-03-15 11:44 | Consultation ---
History of Present Illness - Reason for Consult Consult date: 03/15/21 Acute Stroke with Carotid Artery Stenosis Requesting physician: NANCY LUGO - History of Present Illness The patient is a 75-year-old female with a history of CVA and end-stage renal disease who presented to the hospital with right-sided weakness and decreased responsiveness. From review of the chart the daughter reported that she was doing well prior to her leaving for work that morning but had these changes when she returned from work. The patient's work-up did not reveal an acute CVA however it did reveal bilateral carotid artery stenosis with approximately 75% stenosis of the right internal carotid artery and approximately 90% stenosis of the left internal carotid artery with possible thrombus within the artery. The 90% stenosis extends throughout the artery with near total occlusion of the left MCA. The patient was reportedly on anticoagulation however this was stopped for severe epistasis. It is difficult to determine whether this was for her history of strokes or DVT with PE. Past History Past Medical History: dialysis, DVT, ESRD, hypertension, hyperlipidemia, pulmonary embolism, renal failure, stroke Past Surgical History: Other (Creation of right brachiocephalic arteriovenous fistula, IVC filter placement) Social history: no significant social history, lives with family Family history: no significant family history Medications and Allergies Allergies Allergy/AdvReac Type Severity Reaction Status Date / Time codeine Allergy Intermediate Unknown Verified 09/07/20 13:26 Penicillins AdvReac Severe Unknown Verified 09/07/20 13:26 Home Medications Medication Instructions Recorded Confirmed Last Taken Type FLUoxetine [PROzac] 20 mg PO QDAY 02/10/14 03/14/21 01/24/19 History allopurinoL [Zyloprim] 100 mg PO QDAY 02/10/14 03/13/21 01/24/19 History Baclofen [Lioresal] 5 mg PO BID #60 tablet 04/05/14 03/13/21 01/24/19 Rx Gabapentin 400 mg PO BID #60 capsule 04/05/14 03/13/21 01/24/19 Rx Furosemide [Lasix TAB] 80 mg PO DAILY 01/24/19 03/13/21 01/24/19 History Levothyroxine [Synthroid] 50 mcg PO QAM 01/24/19 03/13/21 01/25/19 05:00 History Losartan [Cozaar] 100 mg PO QDAY 0303/14/21 01/24/19 History Metoprolol Xl [Metoprolol 50 mg PO DAILY 01/24/19 03/13/21 01/25/19 05:00 History SUCCINATE ER TAB] Potassium Chloride [K-Dur] 20 meq PO QDAY 01/24/19 03/13/21 01/24/19 History Torsemide [Demadex] 20 mg PO DAILY 01/24/19 03/14/21 01/24/19 History Methocarbamol [Robaxin] 500 mg PO TID PRN #15 tablet 09/26/19 03/13/21 Unknown Rx AtorvaSTATin [Lipitor] 20 mg PO QHS #30 tablet 09/10/20 03/14/21 Unknown Rx Insulin NPH/Regular [NovoLIN 70/30] 25 unit SUB-Q BIDDIAB #1 units 09/10/20 03/13/21 Unknown Rx Lactulose [Cephulac] 20 gm PO QDAY PRN #7 oral.liqd 09/10/20 03/14/21 Unknown Rx Warfarin [Coumadin] 10 mg PO QDAY@1700 #20 tablet 09/10/20 03/14/21 Unknown Rx Rosuvastatin Calcium [Crestor] 10 mg PO DAILY 03/13/21 03/14/21 Unknown History Active Meds: Active Medications Acetaminophen (Acetaminophen 325 Mg Tab) 650 mg PO Q4H PRN PRN Reason: Pain, Mild (1-3) Last Admin: 03/13/21 14:49 Dose: 650 mg Documented by: Albuterol (Albuterol 2.5 Mg/3 Ml Nebu) 2.5 mg IH Q3HRT PRN PRN Reason: Shortness Of Breath Allopurinol (Allopurinol 100 Mg Tab) 100 mg PO QDAY [facility] Last Admin: 03/15/21 10:20 Dose: 100 mg Documented by: Aspirin (Aspirin 325 Mg Tab) 325 mg PO QDAY [facility] Last Admin: 03/15/21 10:20 Dose: 325 mg Documented by: Atorvastatin Calcium (Atorvastatin 40 Mg Tab) 40 mg PO QHS [facility] Last Admin: 03/14/21 21:13 Dose: 40 mg Documented by: Baclofen (Baclofen 10 Mg Tab) 5 mg PO BID [facility] Last Admin: 03/15/21 10:21 Dose: 5 mg Documented by: Bisacodyl (Bisacodyl 10 Mg Rect Supp) 10 mg HI QDAY PRN PRN Reason: Constipation Dextrose (Dextrose 50% In Water (25gm) 50 Ml Syringe) 50 ml IV Q30MIN PRN; Protocol PRN Reason: Hypoglycemia Famotidine (Famotidine 20 Mg/2 Ml Inj) 20 mg IV DAILY [facility] Last Admin: 03/15/21 10:20 Dose: 20 mg Documented by: Furosemide (Furosemide 40 Mg Tab) 80 mg PO DAILY [facility] Last Admin: 03/15/21 10:20 Dose: 80 mg Documented by: Gabapentin (Gabapentin 400 Mg Cap) 400 mg PO BID [facility] Last Admin: 03/15/21 10:20 Dose: 400 mg Documented by: Sodium Chloride (Nacl 0.9%) 100 mls @ 999 mls/hr IV STACIA PRN PRN Reason: Hypotension Dextrose/Sodium Chloride (D5ns) 1,000 mls @ 75 mls/hr IV DIRECT [facility] Insulin Human Isoph/Insulin Regular (Insulin Nph/Regular 70/30 Inj) 30 unit SUB-Q BIDDIAB [facility] Last Admin: 03/15/21 10:22 Dose: 30 unit Documented by: Insulin Human Lispro (Insulin Lispro 100 Unit/Ml) 0 unit SUB-Q ACHS [facility]; Protocol Last Admin: 03/15/21 10:22 Dose: 2 unit Documented by: Lactulose (Lactulose 20 Gm/30 Ml Oral Liqd) 20 gm PO QDAY PRN PRN Reason: Constipation Levothyroxine Sodium (Levothyroxine 50 Mcg Tab) 50 mcg PO DAILY@0600 [facility] Last Admin: 03/15/21 06:58 Dose: 50 mcg Documented by: Magnesium Hydroxide (Magnesium Hydroxide (Mom) Oral Liqd Udc) 30 ml PO Q4H PRN PRN Reason: Constipation Metoclopramide HCl (Metoclopramide 10 Mg Tab) 10 mg PO Q6H PRN PRN Reason: Nausea And Vomiting Metoprolol Tartrate (Metoprolol Tartrate 25 Mg Tab) 25 mg PO Q6HR [facility] Last Admin: 03/15/21 08:31 Dose: Not Given Documented by: Naloxone HCl (Naloxone 0.4 Mg/1 Ml Inj) 0.1 mg IV Q2MIN PRN PRN Reason: Res Rate </= 8 or 02 SAT < 92% Ondansetron HCl (Ondansetron 4 Mg/2 Ml Inj) 4 mg IV Q8H PRN PRN Reason: Nausea And Vomiting Potassium Chloride (Potassium Chloride Er 20 Meq Tab) 20 meq PO QDAY [facility] Last Admin: 03/15/21 10:20 Dose: 20 meq Documented by: Promethazine HCl (Promethazine 25 Mg Rect Supp) 25 mg HI Q6H PRN PRN Reason: Nausea And Vomiting Sodium Chloride (Sodium Chloride 0.9% 10 Ml Flush Syringe) 10 ml IV PRN PRN PRN Reason: LINE FLUSH Last Admin: 03/14/21 21:13 Dose: 10 ml Documented by: Tramadol HCl (Tramadol 50 Mg Tab) 50 mg PO Q6H PRN PRN Reason: Pain, Moderate (4-6) Last Admin: 03/14/21 02:56 Dose: 50 mg Documented by: Review of Systems All systems: negative Exam - Constitutional Vitals: Temp Pulse Resp BP Pulse Ox 97.9 F 69 18 130/49 96 03/15/21 04:28 03/15/21 08:22 03/15/21 08:22 03/15/21 07:00 03/15/21 09:48 General appearance: Present: no acute distress, other (Broca's aphasia) - Neck Neck: Present: supple - Respiratory Respiratory effort: normal - Cardiovascular Rhythm: regular - Extremities Extremity abnormal: edema (In all 4 extremities), other (Palpable thrill in right upper extremity arteriovenous access) - Abdominal General gastrointestinal: Present: soft - Musculoskeletal Musculoskeletal: right sided weakness (Patient is unable to move right upper extremity, able to move right lower extremity) Results - Labs CBC & Chem 7: 03/13/21 01:45 03/14/21 13:47 Labs: Abnormal lab results 03/14/21 03/14/21 03/14/21 Range/Units 13:47 13:47 13:47 Sodium 133 L (137-145) mmol/L Potassium 5.2 H (3.6-5.0) mmol/L Chloride 94.2 L (98-107) mmol/L BUN 42 H (7-17) mg/dL Creatinine 5.1 H (0.6-1.2) mg/dL Glucose 233 H (65-100) mg/dL POC Glucose (70-105) mg/dL Magnesium 2.50 H (1.7-2.3) mg/dL Troponin T 0.194 H* (0.00-0.029) ng/mL TSH 5.100 H (0.270-4.200) mlU/mL 03/14/21 03/15/21 Range/Units 20:26 08:01 Sodium (137-145) mmol/L Potassium (3.6-5.0) mmol/L Chloride (98-107) mmol/L BUN (7-17) mg/dL Creatinine (0.6-1.2) mg/dL Glucose (65-100) mg/dL POC Glucose 225 H 196 H (70-105) mg/dL Magnesium (1.7-2.3) mg/dL Troponin T (0.00-0.029) ng/mL TSH (0.270-4.200) mlU/mL - Imaging and Cardiology CT Scan - head: image reviewed MRI - head: image reviewed Assessment and Plan The patient is a 75-year-old female with history of multiple medical issues including a previous CVA. The patient has bilateral carotid artery stenosis and left internal carotid artery stenosis with greater than 90% stenosis throughout the left internal carotid artery that extends throughout the course of the artery. Given this anatomy the patient is not an adequate surgical candidate as opening the artery with endarterectomy in the neck would reduce her risk of stroke and would likely increase her risk of stroke. Given the poor outflow through the highly stenotic artery the patient is at increased risk of thrombosis and would benefit from anticoagulation. There is a report that she was previously on anticoagulation and it is difficult to determine from the chart whether this was Xarelto or Coumadin. The patient is an end-stage renal disease patient and should not have been on Xarelto as this is contraindicated in this patient population. Review of the chart revealed that in September 2020 she was on Coumadin and it is possible that the nosebleed was from being supratherapeutic on her anticoagulation. I would recommend the patient being anticoagulated with Eliquis 5 mg p.o. twice daily as this would be controlled anticoagulation as well is being indicated for patients with end-stage renal disease.
--- NOTE | 2021-03-15 12:13 | Progress Note ---
Assessment and Plan Acute metabolic encephalopathy History of CVA with residual right hemiparesis Bilateral carotid artery stenosis >75% and 90% Gastroenteritis with recent nausea vomiting End-stage renal disease on hemodialysis Paroxysmal atrial fibrillation not on AC due to history of epistaxis COPD Hypothyroidism - elevated TSH Thrombocytopenia Diabetes mellitus type II Possible gastroparesis related to diabetes Elevated Troponin Transaminitis Hyperkalemia, likely from end-stage renal disease Plan Admitted with stroke protocol Cardiology, Neurology and Nephrology consult MRI/MRA per neurology Continue ASA, was recently taken off Xarelto due to severe epistaxis Resume appropriate home meds including ASA and statin PT/OT/SPEECH Monitor H/H and Plt Aspiration and fall precaution Brief history: patient is a 75-year-old female with history of CVA with residual right side weakness and aphasia, hypertension, diabetes, congestive heart failure with unknown EF, end-stage renal disease on hemodialysis and COPD brought to the emergency room via EMS from home with c/o AMS and unable to move her right upper and lower extremity. Her blood glucose was reported to be 500 by the family. Stroke protocol immediately initiated, Stroke neurology consulted. CT brain showed no hemorrhage. Patient was not a TPA candidate sinc e symptoms is more than 4.5 hours. Patient was admitted for further evaluation and management. Daily clinical course: 03/14/21: MRI brain showed no acute ischemia. PT recommended subacute rehab. Medical management per cardiology. Neurology on the board. Continue to monitor the patient with stroke protocol, wait for speech therapy recommendation. mobile marketing manager consulted for subacute rehab placement. Hemodialysis nephrology recommendation. Monitor BMP -hyperkalemia should be corrected with hemodialysis. 03/15: noted vascular recommendation for carotid artery stenosis- start on eliquis, stop aspirin to minimize bleeding risk. follow BMP. Speech recommended pureed diet. patient to d/c [facility] following HD tomorrow am. Subjective Date of service: 03/15/21 Principal diagnosis: confusion and right side weakness Interval history: Patient seen and examined. Medical records and medication list reviewed. No acute event overnight noted by the RN. Patient with right-sided hemiparesis Discussed plan of care at bedside with patient's RN. Speech recommended purred Diet, pt appears able to speak few word today PT recommended subacute rehab Objective - Exam Narrative Exam: GENERAL: well-developed and well-nourished elderly female lying on bed HEENT: Normocephalic. Atraumatic. No conjunctival congestion or icterus. Patient has moist mucous membranes. NECK: Supple. Trachea midline. CHEST/LUNGS: Clear to auscultated bilaterally, breathing nonlabored. No wheezes crackles or rhonchi. HEART/CARDIOVASCULAR: Regular in rate and rhythm. S1 and S2 positive. ABDOMEN: Abdomen is soft, nontender. Patient has normal bowel sounds. SKIN: There is no rash. Warm and dry. Ecchymosis over the lower extremity NEURO: Patient is aphasic and able to lift left upper and lower extremity. Follows command. Right-sided hemiparesis MUSCULOSKELETAL: No joint effusion or tenderness. EXTRIMITY: No edema, no cyanosis or clubbing. PSYCH: Cooperative. - Constitutional Vitals: Vital Signs - 12hr 03/15/21 03/15/21 03/15/21 00:35 01:00 04:28 Temperature 97.9 F Pulse Rate 88 88 71 Pulse Rate [ Bilateral Throughout] Respiratory 18 Rate Respiratory Rate [Bilateral Throughout] Blood Pressure 127/46 130/49 O2 Sat by Pulse 86 Oximetry 03/15/21 03/15/21 03/15/21 07:00 08:22 09:48 Temperature Pulse Rate 71 Pulse Rate [ 69 Bilateral Throughout] Respiratory Rate Respiratory 18 Rate [Bilateral Throughout] Blood Pressure 130/49 O2 Sat by Pulse 96 96 Oximetry - Labs CBC & Chem 7: 03/17/21 05:45 03/16/21 04:44 Labs: Abnormal lab results 03/14/21 03/14/21 03/14/21 Range/Units 13:47 13:47 13:47 Sodium 133 L (137-145) mmol/L Potassium 5.2 H (3.6-5.0) mmol/L Chloride 94.2 L (98-107) mmol/L BUN 42 H (7-17) mg/dL Creatinine 5.1 H (0.6-1.2) mg/dL Glucose 233 H (65-100) mg/dL POC Glucose (70-105) mg/dL Magnesium 2.50 H (1.7-2.3) mg/dL Troponin T 0.194 H* (0.00-0.029) ng/mL TSH 5.100 H (0.270-4.200) mlU/mL 03/14/21 03/15/21 Range/Units 20:26 08:01 Sodium (137-145) mmol/L Potassium (3.6-5.0) mmol/L Chloride (98-107) mmol/L BUN (7-17) mg/dL Creatinine (0.6-1.2) mg/dL Glucose (65-100) mg/dL POC Glucose 225 H 196 H (70-105) mg/dL Magnesium (1.7-2.3) mg/dL Troponin T (0.00-0.029) ng/mL TSH (0.270-4.200) mlU/mL HEART Score - HEART Score Troponin: Troponin T 0.194 ng/mL (0.00-0.029) H* 03/14/21 13:47
--- NOTE | 2021-03-15 12:21 | Progress Note ---
Assessment and Plan Assessment and Plan Assessment and plan: Due to patient's current mental status information was obtained from the ED physician and family " patient is a 75-year-old female with history of CVA, hypertension, diabetes, congestive heart failure and COPD. Patient brought to the emergency room via EMS from home for evaluation of possible stroke. Patient daughter who accompanied her mother stated that she was fine until this morning when she left work around 6 AM and when she came back around 4PM found her more lethargic and unable to move her right upper and lower extremity. She also noted that she is confused and have decreased responsiveness. She stated that she checked her sugar and it was more than 500 she given insulin but no improvement. She also stated that she had a stroke in 2013 with residual right side weakness however she walk with a walker sometimes. -CT brain showed no hemorrhage. -Patient is not a TPA candidate since symptoms is more than 4.5 hours. -She also reports that she was recently taken off xeralto due to severe nose bleeds about a week ago and was placed on full dose asa with 4 doses of baby aspirin. Big bruise on her leg noted 2 days ago. Otherwise the patient is unable to provide any information due to her mental status, I did discuss medication list with the daughter. #hx and Exam are suggestive of worsening of right side weakness she is with hx of aphasia since 2013 -possibility of encephalopathy related to underlying infection , worsening of kidney function all improved today she is with no sign off new CVA on MRI brain - she is off xarelto due to increase bleeding tendency # carotid stenosis -right ? 70%, left 90% On CTA --- On MRA complet occlusion of left ICA ? --- Vascualr surgery recommendation is noted agree as pt. is not a surgical candidate to restart on AC - she is currently on ASA 81 mg and lipitor #End-stage renal disease on hemodialysis -resume dialysis #COPD #Hypothyroidism #Thrombocytopenia #Diabetes mellitus #Possible gastroparesis related to diabetes #Elevated Troponin #Transaminitis PLAN -Continue ASA, was recently taken off Xarelto due to severe epistaxis - Elliquis is a better choice given her kidney function -Resume appropriate home meds including ASA and statin -PT/OT/SPEECH -Monitor H/H and Plt -Aspiration and fall precaution -dialysis -ammonia level #51 ? -treat underlying infection - vascualr surgery recommendation is noted -she might need rehabilitation given her unsteady gait and right side weakness over all prognosis is quarded will sign off Subjective Date of service: 03/15/21 Principal diagnosis: confusion and right side weakness Interval history: doing much better today alert interactive able to sit bed side with assistance MRI brain with no new event conflicting finding between CTA and MRA neck !!! vascualr surgery noted agree on AG as surgery is not an option Objective - Vital Sign Vital Signs - 12hr 03/15/21 03/15/21 03/15/21 00:35 01:00 04:28 Temperature 97.9 F Pulse Rate 88 88 71 Pulse Rate [ Bilateral Throughout] Respiratory 18 Rate Respiratory Rate [Bilateral Throughout] Blood Pressure 127/46 130/49 O2 Sat by Pulse 86 Oximetry 03/15/21 03/15/21 03/15/21 07:00 08:22 09:48 Temperature Pulse Rate 71 Pulse Rate [ 69 Bilateral Throughout] Respiratory Rate Respiratory 18 Rate [Bilateral Throughout] Blood Pressure 130/49 O2 Sat by Pulse 96 96 Oximetry - General Apperance Constitutional: comfortable - EENT EENT: PERRL, mucous membranes moist - Respiratory Respiratory: lungs clear - Cardiovascular Cardiovascular: regular rate Extremities: no peripheral edema bilat - Gastrointestinal Gastrointestinal: normoactive bowel sounds - Integumentary Integumentary: normal - Neurologic Cranial nerve examination: PERRL, EOMI, other (right facial droop) Speech examination: motor aphasia Detailed motor examination: grossly full strength in, full strength in all eric, other (righ hemiplegia and spasm right arm , loer right 3+/5) - Laboratory Findings CBC and BMP: 03/13/21 01:45 03/14/21 13:47 Abnormal Lab Findings: Abnormal Labs 03/13/21 03/13/21 03/13/21 01:45 01:45 01:45 MCV 101 H MCH 33 H RDW 15.8 H Plt Count 113 L Lymph % (Auto) 7.6 L [place] % (Auto) 10.4 H Lymph # (Auto) 0.6 L Seg Neutrophils % 81.5 H PT 17.9 H INR 1.49 H Sodium 135 L Potassium Chloride 97.4 L BUN 34 H Creatinine 4.5 H Glucose POC Glucose Magnesium AST ALT CK-MB (CK-2) CK-MB (CK-2) Rel Index 10.0 H Troponin T 0.135 H* Total Protein Albumin LDL Cholesterol Direct 44 L HDL Cholesterol 28 L TSH Ur Specific Abrams Urine WBC (Auto) 03/13/21 03/13/21 03/13/21 01:45 10:14 15:55 MCV MCH RDW Plt Count Lymph % (Auto) [place] % (Auto) Lymph # (Auto) Seg Neutrophils % PT INR Sodium Potassium Chloride BUN Creatinine Glucose POC Glucose 143 H Magnesium AST 109 H ALT 62 H CK-MB (CK-2) 5.0 H CK-MB (CK-2) Rel Index 9.8 H Troponin T 0.225 H* D Total Protein 6.0 L Albumin 2.8 L LDL Cholesterol Direct HDL Cholesterol TSH Ur Specific Abrams Urine WBC (Auto) 03/13/21 03/14/21 03/14/21 21:29 08:43 10:48 MCV MCH RDW Plt Count Lymph % (Auto) [place] % (Auto) Lymph # (Auto) Seg Neutrophils % PT INR Sodium Potassium Chloride BUN Creatinine Glucose POC Glucose 171 H 221 H 226 H Magnesium AST ALT CK-MB (CK-2) CK-MB (CK-2) Rel Index Troponin T Total Protein Albumin LDL Cholesterol Direct HDL Cholesterol TSH Ur Specific Abrams Urine WBC (Auto) 03/14/21 03/14/21 03/14/21 13:47 13:47 13:47 MCV MCH RDW Plt Count Lymph % (Auto) [place] % (Auto) Lymph # (Auto) Seg Neutrophils % PT INR Sodium 133 L Potassium 5.2 H Chloride 94.2 L BUN 42 H Creatinine 5.1 H Glucose 233 H POC Glucose Magnesium 2.50 H AST ALT CK-MB (CK-2) CK-MB (CK-2) Rel Index Troponin T 0.194 H* Total Protein Albumin LDL Cholesterol Direct HDL Cholesterol TSH 5.100 H Ur Specific Abrams Urine WBC (Auto) 03/14/21 03/14/21 03/15/21 20:26 Unknown 08:01 MCV MCH RDW Plt Count Lymph % (Auto) [place] % (Auto) Lymph # (Auto) Seg Neutrophils % PT INR Sodium Potassium Chloride BUN Creatinine Glucose POC Glucose 225 H 196 H Magnesium AST ALT CK-MB (CK-2) CK-MB (CK-2) Rel Index Troponin T Total Protein Albumin LDL Cholesterol Direct HDL Cholesterol TSH Ur Specific Abrams 1.046 H Urine WBC (Auto) 8.0 H
[2021-03-15] MEDS: APIXABAN 5 MG TAB PO SCH ×2 (14:18→21:45)
[2021-03-15 14:53] LABS: Hemoglobin 12.4 gm/dl (10.1-14.3); Mean Corpuscular HGB Conc 33 % (30-34); Mean Corpuscular Volume 102 fl (79-97); Platelet Count 103 K/mm3 (140-440); Red Blood Count 3.74 M/mm3 (3.65-5.03); Red Cell Distribution Width 16.3 % (13.2-15.2)
[2021-03-15 15:02] LABS: Partial Thromboplastin Time 31.5 Sec. (24.2-36.6)
[2021-03-15 15:05] LABS: Calcium 9.7 mg/dL (8.4-10.2)
[2021-03-15 15:33] LABS: INR 1.33 (0.87-1.13)
--- NOTE | 2021-03-15 17:11 | Discharge Summary ---
Providers - Providers Date of Admission: 03/13/21 04:12 Date of discharge: 03/19/21 Attending physician: NANCY LUGO 03/13/21 02:27 Speech Therapy Evaluation and Treat [CONS] Routine Reason For Exam: DIFFICULTY SWALLOWING 03/13/21 07:54 Consult to Physician [CONS] Routine Comment: Consulting Provider: JAQUELIN LEWIS Physician Instructions: Reason For Exam: elevated troponin- hX OF CHF Consult to Physician [CONS] Routine Comment: Consulting Provider: CHAO SCHNEIDER Physician Instructions: Reason For Exam: cva 03/13/21 07:55 Consult to Physician [CONS] Routine Comment: Consulting Provider: SINAN ROBERT Physician Instructions: Reason For Exam: ESRD 03/13/21 07:58 Consult to Case Management [CONS] Routine Services Needed at Discharge: Mobile Crane Operator Notified:: no Consult to Dietitian/Nutrition [CONS] Routine Physician Instructions: Reason For Exam: Reason for Consult: Nutrition Recommendations Reason for Consult: Diet education Occupational Therapy Evaluate and Treat [CONS] Routine Comment: Reason For Exam: Neuro deficits Physical Therapy Evaluation and Treat [CONS] Routine Comment: Reason For Exam: Neuro deficits 03/13/21 08:34 Speech Therapy Evaluation and Treat [CONS] Stat Reason For Exam: swallow evaluation 03/14/21 15:06 Consult to Physician [CONS] Routine Comment: Consulting Provider: ADITYA OZUNA Physician Instructions: Reason For Exam: Carotid stenosis Primary care physician: PUBLISHING SYSTEMS ANALYST Hospitalization Condition: Stable Hospital course: Brief history: patient is a 75-year-old female with history of CVA with residual right side weakness and aphasia, hypertension, diabetes, congestive heart failure with unknown EF, end-stage renal disease on hemodialysis and COPD brought to the emergency room via EMS from home with c/o AMS and unable to move her right upper and lower extremity. Her blood glucose was reported to be 500 by the family. Stroke protocol immediately initiated, Stroke neurology consulted. CT brain showed no hemorrhage. Patient was not a TPA candidate since symptoms is more than 4.5 hours. Patient was admitted for further evaluation and management. Daily clinical course: 03/14/21: MRI brain showed no acute ischemia. Energy Doppler showed bilateral carotid artery stenosis 75-90% occlusion. PT recommended subacute rehab. Medical management per cardiology. Neurology on the board. Continue to monitor the patient with stroke protocol, wait for speech therapy recommendation. customer advocacy manager consulted for subacute rehab placement. Hemodialysis nephrology recommendation. Monitor BMP -hyperkalemia should be corrected with hemodialysis. 03/15: Noted vascular recommendation for carotid artery stenosis: Given this anatomy the patient is not an adequate surgical candidate as opening the artery with endarterectomy in the neck would reduce her risk of stroke and would likely increase her risk of stroke. Vascular recommended to start on eliquis, stop aspirin to minimize bleeding risk. follow BMP. Speech recommended pureed diet. Patient to d/c [facility] following HD tomorrow am per nephrology as patient on Thursday schedule. 03/16: HD access got clogged during HD today, vascular consulted. keep NPO after midnight. hold discharge for now 03/17: Status post fistulogram today with thrombectomy by vascular. Patient waiting on to get hemodialysis today. Possible discharge back to long-term once cleared by nephrology following dialysis. reduce NPH 70/30 dose to prevent hypoglycemia, cont SSI. 03/18: Patient clinically stable, BG improved. She was dialyzed yesterday and will have another HD today. She will be discharge to [facility] after HD. 03/19: patient was dialyzed yesterday and transportation has set up today for discharge. Patient clinically stable, vitals noted. Medically stable for discharge. Disposition: DC/TX-70 [facility]OTHER [facility] Final Discharge Diagnosis (Prints w/discharge instructions): Acute metabolic encephalopathy. History of CVA with residual right hemiparesis. Bilateral carotid artery stenosis >75% and 90%. Gastroenteritis with recent nausea vomiting. End-stage renal disease on hemodialysis. Paroxysmal atrial fibrillation. COPD. Hypothyroidism - elevated TSH. Thrombocytopenia. Diabetes mellitus type II, uncontrolled. Possible gastroparesis related to diabetes. Elevated Troponin. Transaminitis. Hyperkalemia, likely from end- stage renal disease. Malfunctioning right arm AV fistula. Hypoglycemia due to medication and poor oral intake Time spent for discharge: 40 minutes Core Measure Documentation - Palliative Care Palliative Care/ Comfort Measures: Not Applicable - Core Measures Any of the following diagnoses?: history only Exam - Physical Exam Narrative exam: GENERAL: well-developed and well-nourished elderly female lying on bed HEENT: Normocephalic. Atraumatic. No conjunctival congestion or icterus. Patient has moist mucous membranes. NECK: Supple. Trachea midline. CHEST/LUNGS: Clear to auscultated bilaterally, breathing nonlabored. No wheezes crackles or rhonchi. HEART/CARDIOVASCULAR: Regular in rate and rhythm. S1 and S2 positive. ABDOMEN: Abdomen is soft, nontender. Patient has normal bowel sounds. SKIN: There is no rash. Warm and dry. Ecchymosis over the lower extremity NEURO: Patient is able to lift left upper and lower extremity. Follows command. Right-sided hemiparesis MUSCULOSKELETAL: No joint effusion or tenderness. EXTRIMITY: No edema, no cyanosis or clubbing. PSYCH: Cooperative. - Constitutional Vitals: Temp Pulse Resp BP Pulse Ox 97.9 F 82 18 113/53 96 03/15/21 04:28 03/15/21 12:12 03/15/21 08:22 03/15/21 12:12 03/15/21 09:48 Plan Activity: fall precautions Weight Bearing Status: Non-Weight Bearing Diet: other (pureed diet) Additional Instructions: BMP by Thursday Follow up with: PRIMARY CAREMD [Primary Care Provider] - 7 Days
--- NOTE | 2021-03-15 22:20 | Progress Note ---
Assessment and Plan Assessment - End-stage renal disease on hemodialysis - Hypertension - Hyperparathyroidism - Acute encephalopathy - Elevated troponin Recommendations - Continue HD TTS - Monitor labs and volume status daily and assess need for dialysis session - Continue home antihypertensives - Hold antihypertensives on hemodialysis days for systolics less than 160 - No indication for epogen at this time - ESRD diet with 1.4 g/kg per day protein - Renally dose medication for creatinine clearance less than 15 cc/min - Cardiology and neurology consult note reviewed Subjective Date of service: 03/15/21 Principal diagnosis: confusion and right side weakness Interval history: Mental status improved and stable Objective - Exam Narrative Exam: General appearance: No acute distress EENT: Anicteric sclera, hearing intact Neck: Supple Respiratory: Normal effort, CTA bilaterally Cardiovascular: RRR, no rub Extremities: No edema Abdominal: Soft, nontender, nondistended Integumentary: Dry, intact Musculoskeletal: No joint swelling or erythema Psychiatric: Appropriate mood Neurologic: Awake and following commands - Vital Signs Vital signs: Vital Signs - 12hr 03/15/21 03/15/21 03/15/21 12:12 17:00 17:42 Temperature Pulse Rate 82 70 64 Respiratory Rate Blood Pressure 113/53 121/57 O2 Sat by Pulse 98 Oximetry 03/15/21 03/15/21 17:49 19:41 Temperature 98.0 F Pulse Rate 64 59 L Respiratory 20 Rate Blood Pressure 121/57 150/58 O2 Sat by Pulse 94 Oximetry - Lab 03/15/21 13:58 03/15/21 13:58 Most recent lab results Calcium 9.7 mg/dL (8.4-10.2) 03/15/21 13:58 Magnesium 2.50 mg/dL (1.7-2.3) H 03/14/21 13:47 Medications & Allergies - Medications Allergies/Adverse Reactions: Allergies codeine Allergy (Intermediate, Verified 09/07/20 13:26) Unknown Penicillins Adverse Reaction (Severe, Verified 09/07/20 13:26) Unknown Home Medications: Home Medications Medication Instructions Recorded Confirmed Last Taken Type FLUoxetine [PROzac] 20 mg PO QDAY 02/10/14 03/14/21 01/24/19 History allopurinoL [Zyloprim] 100 mg PO QDAY 02/10/14 03/13/21 01/24/19 History Baclofen [Lioresal] 5 mg PO BID #60 tablet 04/05/14 03/13/21 01/24/19 Rx Gabapentin 400 mg PO BID #60 capsule 04/05/14 03/13/21 01/24/19 Rx Levothyroxine [Synthroid] 50 mcg PO QAM 01/24/19 03/13/21 01/25/19 05:00 History AtorvaSTATin [Lipitor] 20 mg PO QHS #30 tablet 09/10/20 03/14/21 Unknown Rx Insulin NPH/Regular [NovoLIN 70/30] 25 unit SUB-Q BIDDIAB #1 units 09/10/20 03/13/21 Unknown Rx Lactulose [Cephulac] 20 gm PO QDAY PRN #7 oral.liqd 09/10/20 03/14/21 Unknown Rx ALBUTEROL NEB's [Proventil 0.083% 2.5 mg IH Q3HRT PRN nebu 03/15/21 Unknown Rx NEBS] Apixaban [Eliquis] 5 mg PO Q12HR tablet 03/15/21 Unknown Rx Furosemide [Lasix TAB] 80 mg PO DAILY tablet 03/15/21 Unknown Rx Metoprolol [Lopressor TAB] 25 mg PO Q6HR tablet 03/15/21 Unknown Rx bisacodyL [Dulcolax suppos] 10 mg [place] QDAY PRN supp.rect 03/15/21 Unknown Rx Active Medications: Generic Name Dose Route Start Last Admin Trade Name Freq PRN Reason Stop Dose Admin Acetaminophen 650 mg 03/13/21 07:57 03/13/21 14:49 Acetaminophen 325 Mg Tab PO 650 mg Q4H PRN Administration Pain, Mild (1-3) Albuterol 2.5 mg 03/13/21 08:00 Albuterol 2.5 Mg/3 Ml Nebu IH Q3HRT PRN Shortness Of Breath Allopurinol 100 mg 03/14/21 10:00 03/15/21 10:20 Allopurinol 100 Mg Tab PO 100 mg QDAY [facility] Administration Apixaban 5 mg 03/15/21 13:00 03/15/21 21:45 Apixaban 5 Mg Tab PO 5 mg Q12HR [facility] Administration Protocol Atorvastatin Calcium 40 mg 03/13/21 22:00 03/15/21 21:46 Atorvastatin 40 Mg Tab PO 40 mg QHS [facility] Administration Baclofen 5 mg 03/13/21 15:30 03/15/21 21:46 Baclofen 10 Mg Tab PO 5 mg BID [facility] Administration Bisacodyl 10 mg 03/13/21 10:00 Bisacodyl 10 Mg Rect Supp FL QDAY PRN Constipation Dextrose 50 ml 03/13/21 07:57 Dextrose 50% In Water (25gm) 50 Ml Syringe IV Q30MIN PRN Hypoglycemia Protocol Famotidine 20 mg 03/15/21 10:00 03/15/21 10:20 Famotidine 20 Mg/2 Ml Inj IV 20 mg DAILY [facility] Administration Furosemide 80 mg 03/13/21 13:00 03/15/21 10:20 Furosemide 40 Mg Tab PO 80 mg DAILY [facility] Administration Gabapentin 400 mg 03/13/21 22:00 03/15/21 21:45 Gabapentin 400 Mg Cap PO 400 mg BID [facility] Administration Sodium Chloride 100 mls @ 999 mls/hr 03/14/21 09:21 Nacl 0.9% IV STACIA PRN Hypotension Insulin Human Isoph/Insulin Regular 30 unit 03/13/21 17:00 03/15/21 17:49 Insulin Nph/Regular 70/30 Inj SUB-Q 30 unit BIDDIAB [facility] Administration Insulin Human Lispro 0 unit 03/13/21 11:30 03/15/21 21:46 Insulin Lispro 100 Unit/Ml SUB-Q Not Given ACHS [facility] Protocol Lactulose 20 gm 03/13/21 13:00 Lactulose 20 Gm/30 Ml Oral Liqd PO QDAY PRN Constipation Levothyroxine Sodium 50 mcg 03/14/21 06:00 03/15/21 06:58 Levothyroxine 50 Mcg Tab PO 50 mcg DAILY@0600 [facility] Administration Magnesium Hydroxide 30 ml 03/13/21 10:00 Magnesium Hydroxide (Mom) Oral Liqd Udc PO Q4H PRN Constipation Metoclopramide HCl 10 mg 03/13/21 10:00 Metoclopramide 10 Mg Tab PO Q6H PRN Nausea And Vomiting Metoprolol Tartrate 25 mg 03/14/21 12:55 03/15/21 17:49 Metoprolol Tartrate 25 Mg Tab PO 25 mg Q6HR [facility] Administration Naloxone HCl 0.1 mg 03/13/21 07:57 Naloxone 0.4 Mg/1 Ml Inj IV Q2MIN PRN Res Rate </= 8 or 02 SAT < 92% Ondansetron HCl 4 mg 03/13/21 10:00 Ondansetron 4 Mg/2 Ml Inj IV Q8H PRN Nausea And Vomiting Potassium Chloride 20 meq 03/14/21 10:00 03/15/21 10:20 Potassium Chloride Er 20 Meq Tab PO 20 meq QDAY [facility] Administration Promethazine HCl 25 mg 03/13/21 10:00 Promethazine 25 Mg Rect Supp FL Q6H PRN Nausea And Vomiting Sodium Chloride 10 ml 03/13/21 07:57 03/14/21 21:13 Sodium Chloride 0.9% 10 Ml Flush Syringe IV 10 ml PRN PRN Administration LINE FLUSH Tramadol HCl 50 mg 03/13/21 17:30 03/14/21 02:56 Tramadol 50 Mg Tab PO 50 mg Q6H PRN Administration Pain, Moderate (4-6)
[2021-03-16] MEDS: METOPROLOL TARTRATE 25 MG TAB PO SCH ×3 (01:18→18:37)
[2021-03-16 06:06] LABS: Basophils % (Auto) 0.2 % (0.0-1.8); Eosinophils # (Auto) 0.1 K/mm3 (0.0-0.4); Eosinophils % (Auto) 1.7 % (0.0-4.3); Hematocrit 37.1 % (30.3-42.9); Lymphocytes # (Auto) 0.6 K/mm3 (1.2-5.4); Lymphocytes % (Auto) 12.7 % (13.4-35.0); Mean Corpuscular HGB Conc 32 % (30-34); Mean Corpuscular Volume 101 fl (79-97); Monocytes # (Auto) 0.6 K/mm3 (0.0-0.8); Monocytes % (Auto) 13.4 % (0.0-7.3); Platelet Count 119 K/mm3 (140-440); Red Blood Count 3.68 M/mm3 (3.65-5.03); Red Cell Distribution Width 16.5 % (13.2-15.2)
[2021-03-16 06:20] LABS: Calcium 9.6 mg/dL (8.4-10.2)
[2021-03-16] MEDS: LEVOTHYROXINE 50 MCG TAB PO SCH (06:39)
--- NOTE | 2021-03-16 12:14 | Event Note ---
Date: 03/16/21 Patient with trombosed access. No emergent need for dialysis today. Will plan on making patient NPO after midnight and doing declot tomorrow at 9:00.
--- NOTE | 2021-03-16 14:27 | Progress Note ---
Assessment and Plan Acute metabolic encephalopathy History of CVA with residual right hemiparesis Bilateral carotid artery stenosis >75% and 90% Gastroenteritis with recent nausea vomiting End-stage renal disease on hemodialysis Paroxysmal atrial fibrillation not on AC due to history of epistaxis COPD Hypothyroidism - elevated TSH Thrombocytopenia Diabetes mellitus type II Possible gastroparesis related to diabetes Elevated Troponin Transaminitis Hyperkalemia, likely from end-stage renal disease Malfunctioning dialysis access Plan Admitted with stroke protocol Cardiology, Neurology and Nephrology consult MRI/MRA per neurology Continue ASA, was recently taken off Xarelto due to severe epistaxis Resume appropriate home meds including ASA and statin PT/OT/SPEECH Monitor H/H and Plt Aspiration and fall precaution Brief history: patient is a 75-year-old female with history of CVA with residual right side weakness and aphasia, hypertension, diabetes, congestive heart failure with unknown EF, end-stage renal disease on hemodialysis and COPD brought to the emergency room via EMS from home with c/o AMS and unable to move her right upper and lower extremity. Her blood glucose was reported to be 500 by the family. Stroke protocol immediately initiated, Stroke neurology consulted. CT brain showed no hemorrhage. Patient was not a TPA candidate since symptoms is more than 4.5 hours. Patient was admitted for further evaluation and management. Daily clinical course: 03/14/21: MRI brain showed no acute ischemia. PT recommended subacute rehab. Medical management per cardiology. Neurology on the board. Continue to monitor the patient with stroke protocol, wait for speech therapy recommendation. manager environmental services consulted for subacute rehab placement. Hemodialysis nephrology recommendation. Monitor BMP -hyperkalemia should be corrected with hemodialysis. 03/15: noted vascular recommendation for carotid artery stenosis- start on eliquis, stop aspirin to minimize bleeding risk. follow BMP. Speech recommended pureed diet. patient to d/c [facility] following HD tomorrow am. 03/16: HD access got clogged during HD today, vascular consulted. keep NPO after midnight. hold discharge for now Subjective Date of service: 03/16/21 Principal diagnosis: confusion and right side weakness Interval history: Patient seen and examined. Medical records and medication list reviewed. No acute event overnight noted by the RN. Patient with right-sided hemiparesis Discussed plan of care at bedside with patient's RN. Speech recommended purred Diet, pt appears able to speak few word Patient noted to have clogged dialysis access during dialysis PT recommended subacute rehab Objective - Exam Narrative Exam: GENERAL: well-developed and well-nourished elderly female lying on bed HEENT: Normocephalic. Atraumatic. No conjunctival congestion or icterus. Patient has moist mucous membranes. NECK: Supple. Trachea midline. CHEST/LUNGS: Clear to auscultated bilaterally, breathing nonlabored. No wheezes crackles or rhonchi. HEART/CARDIOVASCULAR: Regular in rate and rhythm. S1 and S2 positive. ABDOMEN: Abdomen is soft, nontender. Patient has normal bowel sounds. SKIN: There is no rash. Warm and dry. Ecchymosis over the lower extremity NEURO: Patient is able to lift left upper and lower extremity. Follows command. Right-sided hemiparesis MUSCULOSKELETAL: No joint effusion or tenderness. EXTRIMITY: No edema, no cyanosis or clubbing. PSYCH: Cooperative. - Constitutional Vitals: Vital Signs - 12hr 03/16/21 03/16/21 03/16/21 03:47 06:26 09:34 Temperature 97.4 F L Pulse Rate 48 L 52 L Respiratory 20 Rate Blood Pressure 114/53 128/54 O2 Sat by Pulse 97 98 Oximetry - Labs CBC & Chem 7: 03/17/21 05:45 03/16/21 04:44 Labs: Abnormal lab results 03/15/21 03/15/21 03/15/21 Range/Units 11:14 13:58 13:58 MCV 102 H (79-97) fl MCH 33 H (28-32) pg RDW 16.3 H (13.2-15.2) % Plt Count 103 L (140-440) K/mm3 Lymph % (Auto) (13.4-35.0) % [place] % (Auto) (0.0-7.3) % Lymph # (Auto) (1.2-5.4) K/mm3 Seg Neutrophils % (40.0-70.0) % PT (12.2-14.9) Sec. INR (0.87-1.13) Sodium (137-145) mmol/L Chloride 97.1 L (98-107) mmol/L BUN 23 H (7-17) mg/dL Creatinine 4.1 H (0.6-1.2) mg/dL Glucose 163 H (65-100) mg/dL POC Glucose 192 H (70-105) mg/dL 03/15/21 03/15/21 03/15/21 Range/Units 13:58 13:58 15:49 MCV (79-97) fl MCH (28-32) pg RDW (13.2-15.2) % Plt Count (140-440) K/mm3 Lymph % (Auto) (13.4-35.0) % [place] % (Auto) (0.0-7.3) % Lymph # (Auto) (1.2-5.4) K/mm3 Seg Neutrophils % (40.0-70.0) % PT 16.5 H (12.2-14.9) Sec. INR 1.33 H (0.87-1.13) Sodium (137-145) mmol/L Chloride (98-107) mmol/L BUN (7-17) mg/dL Creatinine 4.3 H (0.6-1.2) mg/dL Glucose (65-100) mg/dL POC Glucose 142 H (70-105) mg/dL 03/16/21 03/16/21 Range/Units 04:44 04:44 MCV 101 H (79-97) fl MCH 33 H (28-32) pg RDW 16.5 H (13.2-15.2) % Plt Count 119 L (140-440) K/mm3 Lymph % (Auto) 12.7 L (13.4-35.0) % [place] % (Auto) 13.4 H (0.0-7.3) % Lymph # (Auto) 0.6 L (1.2-5.4) K/mm3 Seg Neutrophils % 72.0 H (40.0-70.0) % PT (12.2-14.9) Sec. INR (0.87-1.13) Sodium 134 L (137-145) mmol/L Chloride 96.4 L (98-107) mmol/L BUN 25 H (7-17) mg/dL Creatinine 4.3 H (0.6-1.2) mg/dL Glucose 38 L* (65-100) mg/dL POC Glucose (70-105) mg/dL HEART Score - HEART Score Troponin: Troponin T 0.194 ng/mL (0.00-0.029) H* 03/14/21 13:47
[2021-03-16] MEDS: INSULIN LISPRO 100 UNIT/ML SUB-Q SCH ×3 (18:35→22:11)
[2021-03-16] MEDS: BACLOFEN 10 MG TAB PO SCH ×2 (18:36→22:10)
[2021-03-16] MEDS: FUROSEMIDE 40 MG TAB PO SCH (18:36)
[2021-03-16] MEDS: FAMOTIDINE 20 MG/2 ML INJ IV SCH (18:36)
[2021-03-16] MEDS: allopurinoL 100 MG TAB PO SCH (18:36)
[2021-03-16] MEDS: GABAPENTIN 400 MG CAP PO SCH ×2 (18:36→22:10)
[2021-03-16] MEDS: APIXABAN 5 MG TAB PO SCH ×2 (18:36→22:10)
[2021-03-16] MEDS: INSULIN NPH/REGULAR 70/30 INJ SUB-Q SCH (18:37)
--- NOTE | 2021-03-16 19:21 | Progress Note ---
Assessment and Plan Assessment - End-stage renal disease on hemodialysis - Hypertension - Hyperparathyroidism - Acute encephalopathy - Elevated troponin - Access malfunction Recommendations - Access malfunctioned. Unable to undergo HD today. Plan for HD tomorrow following declot. - Monitor labs and volume status daily and assess need for dialysis session - Continue home antihypertensives - Hold antihypertensives on hemodialysis days for systolics less than 160 - No indication for epogen at this time - ESRD diet with 1.4 g/kg per day protein - Renally dose medication for creatinine clearance less than 15 cc/min - Cardiology and neurology consult note reviewed Subjective Date of service: 03/16/21 Principal diagnosis: confusion and right side weakness Interval history: Access malfunction noted. Unable to receive HD today. Objective - Exam Narrative Exam: General appearance: No acute distress EENT: Anicteric sclera, hearing intact Neck: Supple Respiratory: Normal effort, CTA bilaterally Cardiovascular: RRR, no rub Extremities: No edema Abdominal: Soft, nontender, nondistended Integumentary: Dry, intact Musculoskeletal: No joint swelling or erythema Psychiatric: Appropriate mood Neurologic: Awake and following commands - Vital Signs Vital signs: Vital Signs - 12hr 03/16/21 03/16/21 09:34 10:00 Pulse Rate 52 L O2 Sat by Pulse 98 Oximetry - Lab 03/16/21 04:44 03/16/21 04:44 Most recent lab results Calcium 9.6 mg/dL (8.4-10.2) 03/16/21 04:44 Magnesium 2.50 mg/dL (1.7-2.3) H 03/14/21 13:47 Medications & Allergies - Medications Allergies/Adverse Reactions: Allergies codeine Allergy (Intermediate, Verified 09/07/20 13:26) Unknown Penicillins Adverse Reaction (Severe, Verified 09/07/20 13:26) Unknown Home Medications: Home Medications Medication Instructions Recorded Confirmed Last Taken Type FLUoxetine [PROzac] 20 mg PO QDAY 02/10/14 03/14/21 01/24/19 History allopurinoL [Zyloprim] 100 mg PO QDAY 02/10/14 03/13/21 01/24/19 History Baclofen [Lioresal] 5 mg PO BID #60 tablet 04/05/14 03/13/21 01/24/19 Rx Gabapentin 400 mg PO BID #60 capsule 04/05/14 03/13/21 01/24/19 Rx Levothyroxine [Synthroid] 50 mcg PO QAM 01/24/19 03/13/21 01/25/19 05:00 History AtorvaSTATin [Lipitor] 20 mg PO QHS #30 tablet 09/10/20 03/14/21 Unknown Rx Insulin NPH/Regular [NovoLIN 70/30] 25 unit SUB-Q BIDDIAB #1 units 09/10/20 03/13/21 Unknown Rx Lactulose [Cephulac] 20 gm PO QDAY PRN #7 oral.liqd 09/10/20 03/14/21 Unknown Rx ALBUTEROL NEB's [Proventil 0.083% 2.5 mg IH Q3HRT PRN nebu 03/15/21 Unknown Rx NEBS] Apixaban [Eliquis] 5 mg PO Q12HR tablet 03/15/21 Unknown Rx Furosemide [Lasix TAB] 80 mg PO DAILY tablet 03/15/21 Unknown Rx Metoprolol [Lopressor TAB] 25 mg PO Q6HR tablet 03/15/21 Unknown Rx bisacodyL [Dulcolax suppos] 10 mg [place] QDAY PRN supp.rect 03/15/21 Unknown Rx Active Medications: Generic Name Dose Route Start Last Admin Trade Name Freq PRN Reason Stop Dose Admin Acetaminophen 650 mg 03/13/21 07:57 03/13/21 14:49 Acetaminophen 325 Mg Tab PO 650 mg Q4H PRN Administration Pain, Mild (1-3) Albuterol 2.5 mg 03/13/21 08:00 Albuterol 2.5 Mg/3 Ml Nebu IH Q3HRT PRN Shortness Of Breath Allopurinol 100 mg 03/14/21 10:00 03/16/21 18:36 Allopurinol 100 Mg Tab PO Not Given QDAY [facility] Apixaban 5 mg 03/15/21 13:00 03/16/21 18:36 Apixaban 5 Mg Tab PO Not Given Q12HR [facility] Protocol Atorvastatin Calcium 40 mg 03/13/21 22:00 03/15/21 21:46 Atorvastatin 40 Mg Tab PO 40 mg QHS [facility] Administration Baclofen 5 mg 03/13/21 15:30 03/16/21 18:36 Baclofen 10 Mg Tab PO Not Given BID [facility] Bisacodyl 10 mg 03/13/21 10:00 Bisacodyl 10 Mg Rect Supp [place] QDAY PRN Constipation Dextrose 50 ml 03/13/21 07:57 03/16/21 06:37 Dextrose 50% In Water (25gm) 50 Ml Syringe IV 50 ml Q30MIN PRN Administration Hypoglycemia Protocol Famotidine 20 mg 03/15/21 10:00 03/16/21 18:36 Famotidine 20 Mg/2 Ml Inj IV Not Given DAILY [facility] Furosemide 80 mg 03/13/21 13:00 03/16/21 18:36 Furosemide 40 Mg Tab PO Not Given DAILY [facility] Gabapentin 400 mg 03/13/21 22:00 03/16/21 18:36 Gabapentin 400 Mg Cap PO Not Given BID [facility] Sodium Chloride 100 mls @ 999 mls/hr 03/14/21 09:21 Nacl 0.9% IV STACIA PRN Hypotension Insulin Human Isoph/Insulin Regular 15 unit 03/16/21 17:00 03/16/21 18:37 Insulin Nph/Regular 70/30 Inj SUB-Q Not Given BIDDIAB [facility] Insulin Human Lispro 0 unit 03/13/21 11:30 03/16/21 18:36 Insulin Lispro 100 Unit/Ml SUB-Q Not Given ACHS [facility] Protocol Lactulose 20 gm 03/13/21 13:00 Lactulose 20 Gm/30 Ml Oral Liqd PO QDAY PRN Constipation Levothyroxine Sodium 50 mcg 03/14/21 06:00 03/16/21 06:39 Levothyroxine 50 Mcg Tab PO 50 mcg DAILY@0600 [facility] Administration Magnesium Hydroxide 30 ml 03/13/21 10:00 Magnesium Hydroxide (Mom) Oral Liqd Udc PO Q4H PRN Constipation Metoclopramide HCl 10 mg 03/13/21 10:00 Metoclopramide 10 Mg Tab PO Q6H PRN Nausea And Vomiting Metoprolol Tartrate 25 mg 03/14/21 12:55 03/16/21 18:37 Metoprolol Tartrate 25 Mg Tab PO Not Given Q6HR [facility] Naloxone HCl 0.1 mg 03/13/21 07:57 Naloxone 0.4 Mg/1 Ml Inj IV Q2MIN PRN Res Rate </= 8 or 02 SAT < 92% Ondansetron HCl 4 mg 03/13/21 10:00 Ondansetron 4 Mg/2 Ml Inj IV Q8H PRN Nausea And Vomiting Potassium Chloride 20 meq 03/14/21 10:00 03/15/21 10:20 Potassium Chloride Er 20 Meq Tab PO 20 meq QDAY [facility] Administration Promethazine HCl 25 mg 03/13/21 10:00 Promethazine 25 Mg Rect Supp [place] Q6H PRN Nausea And Vomiting Sodium Chloride 10 ml 03/13/21 07:57 03/16/21 06:34 Sodium Chloride 0.9% 10 Ml Flush Syringe IV 10 ml PRN PRN Administration LINE FLUSH Tramadol HCl 50 mg 03/13/21 17:30 03/14/21 02:56 Tramadol 50 Mg Tab PO 50 mg Q6H PRN Administration Pain, Moderate (4-6)
[2021-03-17] MEDS: METOPROLOL TARTRATE 25 MG TAB PO SCH ×5 (00:50→23:47)
[2021-03-17] MEDS: LEVOTHYROXINE 50 MCG TAB PO SCH (05:30)
[2021-03-17 06:28] LABS: Hematocrit 39.3 % (30.3-42.9); Hemoglobin 12.7 gm/dl (10.1-14.3); Mean Corpuscular HGB Conc 32 % (30-34); Mean Corpuscular Volume 102 fl (79-97); Platelet Count 109 K/mm3 (140-440); Red Blood Count 3.85 M/mm3 (3.65-5.03); Red Cell Distribution Width 16.8 % (13.2-15.2)
[2021-03-17] MEDS ORDERED: GABAPENTIN 400 MG CAP PO SCH (07:50)
[2021-03-17] MEDS ORDERED: HEPARIN 10,000 UNITS/10 ML VIAL ONE (08:28)
[2021-03-17] MEDS ORDERED: HEPARIN/NS 5000 UNIT/500ML 1,000 ML IR ONE (08:28)
[2021-03-17] MEDS ORDERED: fentaNYL 100 MCG/2 ML INJ ONE (08:29)
[2021-03-17] MEDS ORDERED: SODIUM CHLORIDE 0.9% 500 ML 500 ML ONE (08:30)
[2021-03-17] MEDS ORDERED: LIDOCAINE (2%) 20 MG/1 ML VIAL 20 ML MDV INFILTRATI ONE (08:30)
[2021-03-17] MEDS ORDERED: MIDAZOLAM 2 MG/2 ML INJ ONE (08:30)
[2021-03-17] MEDS: INSULIN LISPRO 100 UNIT/ML SUB-Q SCH ×4 (08:38→21:51)
[2021-03-17] MEDS: INSULIN NPH/REGULAR 70/30 INJ SUB-Q SCH ×3 (08:38→20:57)
--- NOTE | 2021-03-17 09:15 | Progress Note ---
Assessment and Plan Patient with a history of altered mental status that is now returned to her baseline. She was noted to have carotid stenosis. Prior recommendations in chart. Lengthy discussion with patient's daughter. I the patient had initially been tried on Eliquis in the outpatient setting however, had failed Eliquis secondary to scheduled administration being delayed after each dialysis session as opposed to twice daily. Patient was subsequently placed on Xarelto which is not indicated in the setting of renal failure. The patient will need to take her Eliquis in the outpatient setting as scheduled as opposed to being delayed secondary to dialysis. For the patient's thrombosed access, the patient will be brought to the [facility] today for declot and intervention with possible placement of PermCath if unable to open her access. After which, the patient will likely undergo dialysis and then be discharged. Subjective Date of service: 03/17/21 Principal diagnosis: confusion and right side weakness Interval history: Patient with plan discharge which was a delayed secondary to thrombosed dialysis access. Objective - Constitutional Vitals: Vital Signs - 12hr 03/16/21 03/17/21 03/17/21 23:46 00:50 04:38 Temperature 98.8 F 98.3 F Pulse Rate 78 77 67 Respiratory 20 18 Rate Blood Pressure 138/51 138/51 134/60 O2 Sat by Pulse 98 93 Oximetry 03/17/21 05:30 Temperature Pulse Rate Respiratory Rate Blood Pressure 134/60 O2 Sat by Pulse Oximetry General appearance: Present: no acute distress, other (Slightly altered mental status) - EENT Eyes: EOM intact ENT: hearing intact - Neck Neck: supple - Respiratory Respiratory effort: normal - Breasts Breasts: deferred - Gastrointestinal General gastrointestinal: Present: deferred Rectal Exam: deferred - Genitourinary Female genitourinary: deferred - Labs CBC & Chem 7: 03/17/21 05:45 03/16/21 04:44 Labs: Abnormal lab results 03/16/21 03/16/21 03/17/21 Range/Units 15:46 21:14 05:45 MCV 102 H (79-97) fl MCH 33 H (28-32) pg RDW 16.8 H (13.2-15.2) % Plt Count 109 L (140-440) K/mm3 POC Glucose 164 H 176 H (70-105) mg/dL Medications & Allergies - Medications Allergies/Adverse Reactions: Allergies codeine Allergy (Intermediate, Verified 09/07/20 13:26) Unknown Penicillins Adverse Reaction (Severe, Verified 09/07/20 13:26) Unknown Home Medications: Home Medications Medication Instructions Recorded Confirmed Last Taken Type FLUoxetine [PROzac] 20 mg PO QDAY 02/10/14 03/14/21 01/24/19 History allopurinoL [Zyloprim] 100 mg PO QDAY 02/10/14 03/13/21 01/24/19 History Baclofen [Lioresal] 5 mg PO BID #60 tablet 04/05/14 03/13/21 01/24/19 Rx Gabapentin 400 mg PO BID #60 capsule 04/05/14 03/13/21 01/24/19 Rx Levothyroxine [Synthroid] 50 mcg PO QAM 01/24/19 03/13/21 01/25/19 05:00 History AtorvaSTATin [Lipitor] 20 mg PO QHS #30 tablet 09/10/20 03/14/21 Unknown Rx Insulin NPH/Regular [NovoLIN 70/30] 25 unit SUB-Q BIDDIAB #1 units 09/10/20 03/13/21 Unknown Rx Lactulose [Cephulac] 20 gm PO QDAY PRN #7 oral.liqd 09/10/20 03/14/21 Unknown Rx ALBUTEROL NEB's [Proventil 0.083% 2.5 mg IH Q3HRT PRN nebu 03/15/21 Unknown Rx NEBS] Apixaban [Eliquis] 5 mg PO Q12HR tablet 03/15/21 Unknown Rx Furosemide [Lasix TAB] 80 mg PO DAILY tablet 03/15/21 Unknown Rx Metoprolol [Lopressor TAB] 25 mg PO Q6HR tablet 03/15/21 Unknown Rx bisacodyL [Dulcolax suppos] 10 mg UT QDAY PRN supp.rect 03/15/21 Unknown Rx Active Medications: Generic Name Dose Route Start Last Admin Trade Name Freq PRN Reason Stop Dose Admin Acetaminophen 650 mg 03/13/21 07:57 03/13/21 14:49 Acetaminophen 325 Mg Tab PO 650 mg Q4H PRN Administration Pain, Mild (1-3) Albuterol 2.5 mg 03/13/21 08:00 Albuterol 2.5 Mg/3 Ml Nebu IH Q3HRT PRN Shortness Of Breath Allopurinol 100 mg 03/14/21 10:00 03/16/21 18:36 Allopurinol 100 Mg Tab PO Not Given QDAY [facility] Apixaban 5 mg 03/15/21 13:00 03/16/21 22:10 Apixaban 5 Mg Tab PO 5 mg Q12HR [facility] Administration Protocol Atorvastatin Calcium 40 mg 03/13/21 22:00 03/16/21 22:10 Atorvastatin 40 Mg Tab PO 40 mg QHS [facility] Administration Baclofen 5 mg 03/13/21 15:30 03/16/21 22:10 Baclofen 10 Mg Tab PO 5 mg BID [facility] Administration Bisacodyl 10 mg 03/13/21 10:00 Bisacodyl 10 Mg Rect Supp UT QDAY PRN Constipation Dextrose 50 ml 03/13/21 07:57 03/16/21 06:37 Dextrose 50% In Water (25gm) 50 Ml Syringe IV 50 ml Q30MIN PRN Administration Hypoglycemia Protocol Famotidine 20 mg 03/15/21 10:00 03/16/21 18:36 Famotidine 20 Mg/2 Ml Inj IV Not Given DAILY [facility] Furosemide 80 mg 03/13/21 13:00 03/16/21 18:36 Furosemide 40 Mg Tab PO Not Given DAILY [facility] Gabapentin 200 mg 03/17/21 10:00 Gabapentin 100 Mg Cap PO BID [facility] Sodium Chloride 100 mls @ 999 mls/hr 03/14/21 09:21 Nacl 0.9% IV STACIA PRN Hypotension Insulin Human Isoph/Insulin Regular 15 unit 03/16/21 17:00 03/17/21 08:38 Insulin Nph/Regular 70/30 Inj SUB-Q Not Given BIDDIAB [facility] Insulin Human Lispro 0 unit 03/13/21 11:30 03/17/21 08:38 Insulin Lispro 100 Unit/Ml SUB-Q Not Given ACHS [facility] Protocol Lactulose 20 gm 03/13/21 13:00 Lactulose 20 Gm/30 Ml Oral Liqd PO QDAY PRN Constipation Levothyroxine Sodium 50 mcg 03/14/21 06:00 03/17/21 05:30 Levothyroxine 50 Mcg Tab PO Not Given DAILY@0600 [facility] Magnesium Hydroxide 30 ml 03/13/21 10:00 Magnesium Hydroxide (Mom) Oral Liqd Udc PO Q4H PRN Constipation Metoclopramide HCl 10 mg 03/13/21 10:00 Metoclopramide 10 Mg Tab PO Q6H PRN Nausea And Vomiting Metoprolol Tartrate 25 mg 03/14/21 12:55 03/17/21 05:30 Metoprolol Tartrate 25 Mg Tab PO Not Given Q6HR [facility] Naloxone HCl 0.1 mg 03/13/21 07:57 Naloxone 0.4 Mg/1 Ml Inj IV Q2MIN PRN Res Rate </= 8 or 02 SAT < 92% Ondansetron HCl 4 mg 03/13/21 10:00 Ondansetron 4 Mg/2 Ml Inj IV Q8H PRN Nausea And Vomiting Potassium Chloride 20 meq 03/14/21 10:00 03/15/21 10:20 Potassium Chloride Er 20 Meq Tab PO 20 meq QDAY [facility] Administration Promethazine HCl 25 mg 03/13/21 10:00 Promethazine 25 Mg Rect Supp UT Q6H PRN Nausea And Vomiting Sodium Chloride 10 ml 03/13/21 07:57 03/16/21 06:34 Sodium Chloride 0.9% 10 Ml Flush Syringe IV 10 ml PRN PRN Administration LINE FLUSH Tramadol HCl 50 mg 03/13/21 17:30 03/14/21 02:56 Tramadol 50 Mg Tab PO 50 mg Q6H PRN Administration Pain, Moderate (4-6) HEART Score - HEART Score Troponin: Troponin T 0.194 ng/mL (0.00-0.029) H* 03/14/21 13:47
--- NOTE | 2021-03-17 10:09 | Operative Report ---
Operative Report Operative Report: Exam: Right upper extremity fistulogram, declot, venoplasty Clinical indication: Patient with a history of end-stage renal disease through a right upper arm AV fistula. During patient's dialysis yesterday, patient was noted to have thrombosed access. Date: 03/17/2021 Procedure: Following an explanation of the risks, benefits and alternatives; written informed consent was obtained from the patient's next of kin. Patient was brought to the angiographic suite and placed in supine position on the examination table. Initial ultrasound evaluation of the patient's right upper arm demonstrated a patent right upper arm AV fistula. The patient's right upper arm was prepped and draped in the usual sterile fashion. 1% lidocaine was used for anesthesia. Under ultrasound guidance, the fistula was cannulated towards the venous outflow using a 7 cm 21-gauge needle. A 0.018 guidewire was advanced centrally. The needle was removed and a microsheath placed. The 0.018 guidewire was exchanged for a 0.035 guidewire and the micro sheath exchanged for a 7 Marshallese vascular sheath. Access towards the arterial anastomosis was obtained in a similar fashion and an additional 7 Marshallese sheath placed towards the arterial anastomosis. A vertebral catheter was advanced over the guidewire through the venous sheath. The guidewire and catheter were advanced centrally. Contrast was injected. The central veins are patent. There are 2 stents in the patient's upper arm. 1 a nitinol self-expanding stent and one a flare. Thrombus extends from the central aspect of these 2 stents to the sheath insertion site. The vertebral catheter was then advanced over the guidewire through the arterial sheath. Selective cannulation of the arterial anastomosis was performed. Contrast was injected which demonstrates no significant flow into the fistula. Mechanical thrombectomy was then performed through the venous sheath using the Treiber: Mechanical thrombectomy from the stents to the sheath insertion site. A Irena balloon was then advanced over the guidewire through the arterial sheath through the arterial anastomosis and used to sweep the arterial plug free. At this point, pulsatility was present within the fistula. Contrast was again injected which demonstrates retained thrombus within the central aspect of the fistula at the cannulation sites and a significant stenosis within the venous outflow within the 2 previously placed stents. Venoplasty was performed using an 8 mm x 40 mm balloon to reduce the stenosis to less than 20%. The graft was then swept free of thrombus using the Irena balloon through the venous sheath. Contrast was injected which demonstrates brisk flow from the venous sheath insertion site to the central veins. The vertebral catheter was then advanced over the arterial guidewire and advanced to the arterial anastomosis. With the catheter in the brachial artery, contrast was injected. This demonstrates brisk flow through the fistula. There is only minimal opacification of the veins extending distal to the arm. The vertebral catheter was therefore directed down these veins. This demonstrates that the veins are widely patent with no intraluminal thrombus identified. There is simply a significant amount of flow being shunted through the fistula. At this point, the catheters, guidewires and sheaths were removed and hemostasis achieved using 4-0 Vicryl suture and manual compression. Sterile dressings were applied. The patient tolerated the procedure well. There were no immediate postprocedure complications. A minimal amount of fentanyl and Versed were used. Continuous cardiopulmonary monitoring was utilized. Impression: 1) Right upper extremity fistulogram demonstrating thrombus from the arterial anastomosis to the stents in the venous outflow. Additionally, there is a significant stenosis within the stents. 2) Mechanical thrombectomy using the Treretola Mechanical thrombectomy device. 3) Venoplasty of the venous outflow stenosis using an 8 mm x 40 mm balloon. 4) Brisk flow throughout the fistula at the conclusion of the procedure. 5) Selective angiography of the blood vessels towards the hand were evaluated and found to be widely patent however, the fistula shunts a significant amount of flow through the fistula. If there is concern for too much flow to the fistula, the patient may need revision versus proximalization.
--- NOTE | 2021-03-17 12:46 | Progress Note ---
Assessment and Plan Acute metabolic encephalopathy History of CVA with residual right hemiparesis Bilateral carotid artery stenosis >75% and 90% Gastroenteritis with recent nausea vomiting End-stage renal disease on hemodialysis Paroxysmal atrial fibrillation not on AC due to history of epistaxis COPD Hypothyroidism - elevated TSH Thrombocytopenia Diabetes mellitus type II Possible gastroparesis related to diabetes Elevated Troponin Transaminitis Hyperkalemia, likely from end-stage renal disease Malfunctioning right arm AV fistula Hypoglycemia Plan Admitted with stroke protocol Cardiology, Neurology and Nephrology consult MRI/MRA per neurology Continue ASA, was recently taken off Xarelto due to severe epistaxis Resume appropriate home meds including ASA and statin PT/OT/SPEECH Monitor H/H and Plt Aspiration and fall precaution disposition planned for [facility]/SNF Brief history: patient is a 75-year-old female with history of CVA with residual right side weakness and aphasia, hypertension, diabetes, congestive heart fail ure with unknown EF, end-stage renal disease on hemodialysis and COPD brought to the emergency room via EMS from home with c/o AMS and unable to move her right upper and lower extremity. Her blood glucose was reported to be 500 by the family. Stroke protocol immediately initiated, Stroke neurology consulted. CT brain showed no hemorrhage. Patient was not a TPA candidate since symptoms is more than 4.5 hours. Patient was admitted for further evaluation and management. Daily clinical course: 03/14/21: MRI brain showed no acute ischemia. PT recommended subacute rehab. Medical management per cardiology. Neurology on the board. Continue to monitor the patient with stroke protocol, wait for speech therapy recommendation. manager floor consulted for subacute rehab placement. Hemodialysis nephrology recommendation. Monitor BMP -hyperkalemia should be corrected with hemodialysis. 03/15: noted vascular recommendation for carotid artery stenosis- start on twan melchor, stop aspirin to minimize bleeding risk. follow BMP. Speech recommended pureed diet. Patient to d/c [facility] following HD tomorrow am per nephrology as patient on Thursday schedule. 03/16: HD access got clogged during HD today, vascular consulted. keep NPO after midnight. hold discharge for now 03/17: Status post fistulogram today with thrombectomy by vascular. Patient waiting on to get hemodialysis today. Possible discharge back to [facility] once cleared by nephrology following dialysis. reduce NPH 70/30 dose to prevent hypoglycemia, cont SSI. Subjective Date of service: 03/17/21 Principal diagnosis: confusion and right side weakness Interval history: Patient seen and examined. Medical records and medication list reviewed. No acute event overnight noted by the RN. Patient with right-sided hemiparesis Discussed plan of care at bedside with patient's RN. Speech recommended purred Diet, pt appears able to speak few word Status post fistulogram today with thrombectomy PT recommended subacute rehab Objective - Exam Narrative Exam: GENERAL: well-developed and well-nourished elderly female lying on bed HEENT: Normocephalic. Atraumatic. No conjunctival congestion or icterus. Patient has moist mucous membranes. NECK: Supple. Trachea midline. CHEST/LUNGS: Clear to auscultated bilaterally, breathing nonlabored. No wheezes crackles or rhonchi. HEART/CARDIOVASCULAR: Regular in rate and rhythm. S1 and S2 positive. ABDOMEN: Abdomen is soft, nontender. Patient has normal bowel sounds. SKIN: There is no rash. Warm and dry. Ecchymosis over the lower extremity NEURO: Patient is able to lift left upper and lower extremity. Follows command. Right-sided hemiparesis MUSCULOSKELETAL: No joint effusion or tenderness. EXTRIMITY: No edema, no cyanosis or clubbing. PSYCH: Cooperative. - Constitutional Vitals: Vital Signs - 12hr 03/17/21 03/17/21 03/17/21 00:50 04:38 05:30 Temperature 98.3 F Pulse Rate 77 67 Respiratory 18 Rate Blood Pressure 138/51 134/60 134/60 O2 Sat by Pulse 93 Oximetry 03/17/21 10:00 Temperature Pulse Rate 64 Respiratory Rate Blood Pressure O2 Sat by Pulse Oximetry - Labs CBC & Chem 7: 03/17/21 05:45 03/18/21 07:03 Labs: Abnormal lab results 03/16/21 03/16/21 03/17/21 Range/Units 15:46 21:14 05:45 MCV 102 H (79-97) fl MCH 33 H (28-32) pg RDW 16.8 H (13.2-15.2) % Plt Count 109 L (140-440) K/mm3 POC Glucose 164 H 176 H (70-105) mg/dL HEART Score - HEART Score Troponin: Troponin T 0.194 ng/mL (0.00-0.029) H* 03/14/21 13:47
--- NOTE | 2021-03-17 13:04 | Progress Note ---
Assessment and Plan - Patient Problems (1) Acute CVA (cerebrovascular accident) Current Visit: Yes Status: Acute (2) End stage renal disease Current Visit: No Status: Acute (3) IDDM (insulin dependent diabetes mellitus) Current Visit: No Status: Chronic Subjective Date of service: 03/16/21 Principal diagnosis: confusion and right side weakness Interval history: NO CARDIAC C/O,,,PARTIAL APHASIA Objective Vital Signs Temp Pulse Resp BP Pulse Ox 03/17/21 10:00 64 03/17/21 05:30 134/60 03/17/21 04:38 98.3 F 67 18 134/60 93 03/17/21 00:50 77 138/51 03/16/21 23:46 98.8 F 78 20 138/51 98 03/16/21 20:51 98 03/16/21 20:01 97.6 F 64 18 121/44 98 - Physical Examination General: No Apparent Distress HEENT: Positive: PERRL Neck: Positive: trachea midline Cardiac: Positive: Reg Rate and Rhythm Lungs: Positive: clear to auscultation Neuro: Positive: Weakness (right sided residual) Abdomen: Positive: Other (OBESE) Extremities: Present: +1 Edema - Labs and Meds CBC 03/17/21 Range/Units 05:45 WBC 4.9 (4.5-11.0) K/mm3 RBC 3.85 (3.65-5.03) M/mm3 Hgb 12.7 (10.1-14.3) gm/dl Hct 39.3 (30.3-42.9) % Plt Count 109 L (140-440) K/mm3
[2021-03-17] MEDS: APIXABAN 5 MG TAB PO SCH ×2 (13:21→21:35)
[2021-03-17] MEDS ORDERED: SODIUM CHLORIDE 0.9% 100 ML IV PRN (14:11)
[2021-03-17] MEDS: FUROSEMIDE 40 MG TAB PO SCH (16:37)
[2021-03-17] MEDS: POTASSIUM CHLORIDE ER 20 MEQ TAB PO SCH (16:37)
[2021-03-17] MEDS: GABAPENTIN 100 MG CAP PO SCH ×2 (16:37→21:35)
[2021-03-17] MEDS: FAMOTIDINE 20 MG/2 ML INJ IV SCH (16:38)
[2021-03-17] MEDS: allopurinoL 100 MG TAB PO SCH (16:38)
[2021-03-17] MEDS: BACLOFEN 10 MG TAB PO SCH ×2 (16:38→21:53)
--- NOTE | 2021-03-17 19:51 | Progress Note ---
Assessment and Plan Assessment - End-stage renal disease on hemodialysis - Hypertension - Hyperparathyroidism - Acute encephalopathy - Elevated troponin - Access malfunction Recommendations - Access malfunctioned. Unable to undergo HD yesterday. Plan for HD today. - Concerns for high flow by vascular noted. Hemodynamically stable with acceptable EF. Cardiology following. Will need close monitoring outpatient upon d/c. - Monitor labs and volume status daily and assess need for dialysis session - Continue home antihypertensives - Hold antihypertensives on hemodialysis days for systolics less than 160 - No indication for epogen at this time - ESRD diet with 1.4 g/kg per day protein - Renally dose medication for creatinine clearance less than 15 cc/min - Cardiology and neurology consult note reviewed Subjective Date of service: 03/17/21 Principal diagnosis: confusion and right side weakness Interval history: Status post thrombectomy and venoplasty today. Objective - Exam Narrative Exam: General appearance: No acute distress EENT: Anicteric sclera, hearing intact Neck: Supple Respiratory: Normal effort, CTA bilaterally Cardiovascular: RRR, no rub Extremities: No edema Abdominal: Soft, nontender, nondistended Integumentary: Dry, intact Musculoskeletal: No joint swelling or erythema Psychiatric: Appropriate mood Neurologic: Awake and following commands - Vital Signs Vital signs: Vital Signs - 12hr 03/17/21 03/17/21 03/17/21 10:00 13:11 13:22 Temperature Pulse Rate 64 65 65 Respiratory Rate Blood Pressure 113/55 113/55 O2 Sat by Pulse 93 Oximetry O2 Sat by Pulse Oximetry [ Bilateral Throughout] 03/17/21 03/17/21 03/17/21 14:30 14:45 15:00 Temperature 98.7 F Pulse Rate 66 64 64 Respiratory 22 Rate Blood Pressure 133/63 133/59 148/36 O2 Sat by Pulse Oximetry O2 Sat by Pulse 98 Oximetry [ Bilateral Throughout] 03/17/21 03/17/21 03/17/21 15:15 15:30 15:45 Temperature Pulse Rate 69 68 68 Respiratory Rate Blood Pressure 176/70 144/74 157/74 O2 Sat by Pulse Oximetry O2 Sat by Pulse Oximetry [ Bilateral Throughout] 03/17/21 03/17/21 03/17/21 16:00 16:15 16:30 Temperature Pulse Rate 69 66 69 Respiratory Rate Blood Pressure 111/96 155/80 160/66 O2 Sat by Pulse Oximetry O2 Sat by Pulse Oximetry [ Bilateral Throughout] 03/17/21 03/17/21 03/17/21 16:45 17:00 17:15 Temperature Pulse Rate 68 67 67 Respiratory Rate Blood Pressure 136/57 149/83 166/75 O2 Sat by Pulse Oximetry O2 Sat by Pulse Oximetry [ Bilateral Throughout] 03/17/21 03/17/21 03/17/21 17:30 17:45 18:00 Temperature Pulse Rate 67 66 68 Respiratory Rate Blood Pressure 140/70 158/67 147/58 O2 Sat by Pulse Oximetry O2 Sat by Pulse Oximetry [ Bilateral Throughout] 03/17/21 03/17/21 03/17/21 18:15 18:24 18:48 Temperature 97.9 F Pulse Rate 58 L 70 64 Respiratory 25 H Rate Blood Pressure 106/68 162/69 O2 Sat by Pulse Oximetry O2 Sat by Pulse 97 Oximetry [ Bilateral Throughout] 03/17/21 19:03 Temperature 98.3 F Pulse Rate 64 Respiratory 14 Rate Blood Pressure 130/111 O2 Sat by Pulse 93 Oximetry O2 Sat by Pulse Oximetry [ Bilateral Throughout] - Lab 03/17/21 05:45 03/16/21 04:44 Most recent lab results Calcium 9.6 mg/dL (8.4-10.2) 03/16/21 04:44 Magnesium 2.50 mg/dL (1.7-2.3) H 03/14/21 13:47 Medications & Allergies - Medications Allergies/Adverse Reactions: Allergies codeine Allergy (Intermediate, Verified 09/07/20 13:26) Unknown Penicillins Adverse Reaction (Severe, Verified 09/07/20 13:26) Unknown Home Medications: Home Medications Medication Instructions Recorded Confirmed Last Taken Type FLUoxetine [PROzac] 20 mg PO QDAY 02/10/14 03/14/21 01/24/19 History allopurinoL [Zyloprim] 100 mg PO QDAY 02/10/14 03/13/21 01/24/19 History Baclofen [Lioresal] 5 mg PO BID #60 tablet 04/05/14 03/13/21 01/24/19 Rx Gabapentin 400 mg PO BID #60 capsule 04/05/14 03/13/21 01/24/19 Rx Levothyroxine [Synthroid] 50 mcg PO QAM 01/24/19 03/13/21 01/25/19 05:00 History AtorvaSTATin [Lipitor] 20 mg PO QHS #30 tablet 09/10/20 03/14/21 Unknown Rx Insulin NPH/Regular [NovoLIN 70/30] 25 unit SUB-Q BIDDIAB #1 units 09/10/20 03/13/21 Unknown Rx Lactulose [Cephulac] 20 gm PO QDAY PRN #7 oral.liqd 09/10/20 03/14/21 Unknown Rx ALBUTEROL NEB's [Proventil 0.083% 2.5 mg IH Q3HRT PRN nebu 03/15/21 Unknown Rx NEBS] Apixaban [Eliquis] 5 mg PO Q12HR tablet 03/15/21 Unknown Rx Furosemide [Lasix TAB] 80 mg PO DAILY tablet 03/15/21 Unknown Rx Metoprolol [Lopressor TAB] 25 mg PO Q6HR tablet 03/15/21 Unknown Rx bisacodyL [Dulcolax suppos] 10 mg UT QDAY PRN supp.rect 03/15/21 Unknown Rx Active Medications: Generic Name Dose Route Start Last Admin Trade Name Freq PRN Reason Stop Dose Admin Acetaminophen 650 mg 03/13/21 07:57 03/13/21 14:49 Acetaminophen 325 Mg Tab PO 650 mg Q4H PRN Administration Pain, Mild (1-3) Albuterol 2.5 mg 03/13/21 08:00 Albuterol 2.5 Mg/3 Ml Nebu IH Q3HRT PRN Shortness Of Breath Allopurinol 100 mg 03/14/21 10:00 03/17/21 16:38 Allopurinol 100 Mg Tab PO Not Given QDAY [facility] Apixaban 5 mg 03/15/21 13:00 03/17/21 13:21 Apixaban 5 Mg Tab PO 5 mg Q12HR [facility] Administration Protocol Atorvastatin Calcium 40 mg 03/13/21 22:00 03/16/21 22:10 Atorvastatin 40 Mg Tab PO 40 mg QHS [facility] Administration Baclofen 5 mg 03/13/21 15:30 03/17/21 16:38 Baclofen 10 Mg Tab PO Not Given BID [facility] Bisacodyl 10 mg 03/13/21 10:00 Bisacodyl 10 Mg Rect Supp UT QDAY PRN Constipation Dextrose 50 ml 03/13/21 07:57 03/16/21 06:37 Dextrose 50% In Water (25gm) 50 Ml Syringe IV 50 ml Q30MIN PRN Administration Hypoglycemia Protocol Famotidine 20 mg 03/15/21 10:00 03/17/21 16:38 Famotidine 20 Mg/2 Ml Inj IV Not Given DAILY [facility] Furosemide 80 mg 03/13/21 13:00 03/17/21 16:37 Furosemide 40 Mg Tab PO Not Given DAILY [facility] Gabapentin 200 mg 03/17/21 10:00 03/17/21 16:37 Gabapentin 100 Mg Cap PO Not Given BID [facility] Sodium Chloride 100 mls @ 999 mls/hr 03/14/21 09:21 Nacl 0.9% IV STACIA PRN Hypotension Sodium Chloride 100 mls @ 999 mls/hr 03/17/21 14:11 Nacl 0.9% IV STACIA PRN Hypotension Insulin Human Isoph/Insulin Regular 15 unit 03/16/21 17:00 03/17/21 08:38 Insulin Nph/Regular 70/30 Inj SUB-Q Not Given BIDDIAB [facility] Insulin Human Lispro 0 unit 03/13/21 11:30 03/17/21 13:21 Insulin Lispro 100 Unit/Ml SUB-Q 3 unit ACHS [facility] Administration Protocol Lactulose 20 gm 03/13/21 13:00 Lactulose 20 Gm/30 Ml Oral Liqd PO QDAY PRN Constipation Levothyroxine Sodium 50 mcg 03/14/21 06:00 03/17/21 05:30 Levothyroxine 50 Mcg Tab PO Not Given DAILY@0600 [facility] Magnesium Hydroxide 30 ml 03/13/21 10:00 Magnesium Hydroxide (Mom) Oral Liqd Udc PO Q4H PRN Constipation Metoclopramide HCl 10 mg 03/13/21 10:00 Metoclopramide 10 Mg Tab PO Q6H PRN Nausea And Vomiting Metoprolol Tartrate 25 mg 03/14/21 12:55 03/17/21 13:22 Metoprolol Tartrate 25 Mg Tab PO 25 mg Q6HR [facility] Administration Naloxone HCl 0.1 mg 03/13/21 07:57 Naloxone 0.4 Mg/1 Ml Inj IV Q2MIN PRN Res Rate </= 8 or 02 SAT < 92% Ondansetron HCl 4 mg 03/13/21 10:00 Ondansetron 4 Mg/2 Ml Inj IV Q8H PRN Nausea And Vomiting Potassium Chloride 20 meq 03/14/21 10:00 03/17/21 16:37 Potassium Chloride Er 20 Meq Tab PO Not Given QDAY [facility] Promethazine HCl 25 mg 03/13/21 10:00 Promethazine 25 Mg Rect Supp UT Q6H PRN Nausea And Vomiting Sodium Chloride 10 ml 03/13/21 07:57 03/16/21 06:34 Sodium Chloride 0.9% 10 Ml Flush Syringe IV 10 ml PRN PRN Administration LINE FLUSH Tramadol HCl 50 mg 03/13/21 17:30 03/14/21 02:56 Tramadol 50 Mg Tab PO 50 mg Q6H PRN Administration Pain, Moderate (4-6)
[2021-03-18] MEDS: LEVOTHYROXINE 50 MCG TAB PO SCH (06:25)
[2021-03-18] MEDS: METOPROLOL TARTRATE 25 MG TAB PO SCH ×3 (06:25→18:38)
[2021-03-18] MEDS ORDERED: SODIUM CHLORIDE 0.9% 100 ML IV PRN (09:56)
[2021-03-18] MEDS: INSULIN LISPRO 100 UNIT/ML SUB-Q SCH ×4 (10:20→22:10)
[2021-03-18] MEDS: allopurinoL 100 MG TAB PO SCH ×2 (10:23→21:26)
[2021-03-18] MEDS: GABAPENTIN 100 MG CAP PO SCH ×3 (10:23→22:08)
[2021-03-18] MEDS: INSULIN NPH/REGULAR 70/30 INJ SUB-Q SCH ×2 (10:24→18:39)
[2021-03-18] MEDS: POTASSIUM CHLORIDE ER 20 MEQ TAB PO SCH ×2 (10:24→21:26)
[2021-03-18] MEDS: APIXABAN 5 MG TAB PO SCH ×3 (10:24→22:09)
[2021-03-18] MEDS: BACLOFEN 10 MG TAB PO SCH ×3 (10:24→22:09)
[2021-03-18] MEDS: FUROSEMIDE 40 MG TAB PO SCH ×2 (10:42→21:26)
[2021-03-18] MEDS: FAMOTIDINE 20 MG/2 ML INJ IV SCH (10:42)
--- NOTE | 2021-03-18 11:46 | Progress Note ---
Assessment and Plan - Patient Problems (1) Acute CVA (cerebrovascular accident) Current Visit: Yes Status: Acute (2) End stage renal disease Current Visit: No Status: Acute (3) IDDM (insulin dependent diabetes mellitus) Current Visit: No Status: Chronic Subjective Date of service: 03/18/21 Principal diagnosis: confusion and right side weakness Interval history: NO CV C/O Objective Vital Signs Temp Pulse Resp BP Pulse Ox Pulse Ox 03/18/21 10:33 64 121/50 98 03/18/21 07:59 96 03/18/21 07:27 58 L 20 88/41 90 03/18/21 06:25 70 113/47 03/18/21 03:45 98.3 F 70 17 113/47 95 03/17/21 23:47 76 108/43 03/17/21 23:25 97 03/17/21 23:23 99.1 F 76 16 108/43 88 03/17/21 22:00 73 03/17/21 21:10 99 03/17/21 20:58 64 130/111 03/17/21 19:03 98.3 F 64 14 130/111 93 03/17/21 18:48 97.9 F 64 25 H 162/69 97 03/17/21 18:24 70 03/17/21 18:15 58 L 106/68 03/17/21 18:00 68 147/58 03/17/21 17:45 66 158/67 03/17/21 17:30 67 140/70 03/17/21 17:15 67 166/75 03/17/21 17:00 67 149/83 03/17/21 16:45 68 136/57 03/17/21 16:30 69 160/66 03/17/21 16:15 66 155/80 03/17/21 16:00 69 111/96 03/17/21 15:45 68 157/74 03/17/21 15:30 68 144/74 03/17/21 15:15 69 176/70 03/17/21 15:00 64 148/36 03/17/21 14:45 64 133/59 03/17/21 14:30 98.7 F 66 22 133/63 98 03/17/21 13:22 65 113/55 03/17/21 13:11 65 113/55 93 - Physical Examination General: No Apparent Distress (OBESE) HEENT: Positive: PERRL Neck: Positive: trachea midline Cardiac: Positive: Reg Rate and Rhythm Lungs: Positive: clear to auscultation Neuro: Positive: Weakness (right sided residual) Abdomen: Positive: Other (OBESE) Extremities: Present: +1 Edema - Labs and Meds Comprehensive Metabolic Panel 03/18/21 Range/Units 07:03 Creatinine 3.9 H (0.6-1.2) mg/dL
[2021-03-18] MEDS: traMADol 50 MG TAB PO PRN (22:09)
[2021-03-19] MEDS: METOPROLOL TARTRATE 25 MG TAB PO SCH (00:39)
[2021-03-19 06:00] LABS: Hemoglobin 12.7 gm/dl (10.1-14.3); Mean Corpuscular HGB Conc 33 % (30-34); Mean Corpuscular Volume 100 fl (79-97); Red Blood Count 3.89 M/mm3 (3.65-5.03); Red Cell Distribution Width 16.6 % (13.2-15.2)
[2021-03-19 06:03] LABS: Platelet Count 103 K/mm3 (140-440)
[2021-03-19] MEDS: LEVOTHYROXINE 50 MCG TAB PO SCH (06:22)
--- NOTE | 2021-03-19 09:06 | Progress Note ---
Assessment and Plan Assessment - End-stage renal disease on hemodialysis - Acute encephalopathy - Malfunctioning AV access - Hypertension - Secondary hyperparathyroidism - Elevated troponin Recommendations - Patient is s/p fistulogram w/ declot yesterday. - Resume outpatient MWF schedule today - Monitor labs and volume status daily to assess need for dialysis - Continue home antihypertensives - No indication for epogen at this time - ESRD diet with 1.4 g/kg per day protein - Dose medications for renal function - Cardiology and neurology consult note reviewed Subjective Date of service: 03/18/21 Principal diagnosis: confusion and right side weakness Interval history: Patient has no complaints Objective - Vital Signs Vital signs: Vital Signs - 12hr 03/17/21 03/17/21 03/17/21 22:00 23:23 23:25 Temperature 99.1 F Pulse Rate 73 76 Respiratory 16 Rate Blood Pressure 108/43 O2 Sat by Pulse 88 97 Oximetry 03/17/21 03/18/21 03/18/21 23:47 03:45 06:25 Temperature 98.3 F Pulse Rate 76 70 70 Respiratory 17 Rate Blood Pressure 108/43 113/47 113/47 O2 Sat by Pulse 95 Oximetry 03/18/21 03/18/21 07:27 07:59 Temperature Pulse Rate 58 L Respiratory 20 Rate Blood Pressure 88/41 O2 Sat by Pulse 90 96 Oximetry - General Appearance General appearance: well-developed, well-nourished EENT: ATNC Respiratory: Present: Clear to Ascultation Cardiology: regular, S1S2 Gastrointestinal: normal Integumentary: no rash, warm and dry Musculoskeletal: other (+edema) Psychiatric: cooperative - Lab 03/19/21 05:09 03/18/21 07:03 Most recent lab results Calcium 9.6 mg/dL (8.4-10.2) 03/16/21 04:44 Magnesium 2.50 mg/dL (1.7-2.3) H 03/14/21 13:47 Medications & Allergies - Medications Allergies/Adverse Reactions: Allergies codeine Allergy (Intermediate, Verified 09/07/20 13:26) Unknown Penicillins Adverse Reaction (Severe, Verified 09/07/20 13:26) Unknown Home Medications: Home Medications Medication Instructions Recorded Confirmed Last Taken Type FLUoxetine [PROzac] 20 mg PO QDAY 02/10/14 03/14/21 01/24/19 History allopurinoL [Zyloprim] 100 mg PO QDAY 02/10/14 03/13/21 01/24/19 History Baclofen [Lioresal] 5 mg PO BID #60 tablet 04/05/14 03/13/21 01/24/19 Rx Levothyroxine [Synthroid] 50 mcg PO QAM 01/24/19 03/13/21 01/25/19 05:00 History Lactulose [Cephulac] 20 gm PO QDAY PRN #7 oral.liqd 09/10/20 03/14/21 Unknown Rx ALBUTEROL NEB's [Proventil 0.083% 2.5 mg IH Q3HRT PRN nebu 03/15/21 Unknown Rx NEBS] Apixaban [Eliquis] 5 mg PO Q12HR tablet 03/15/21 Unknown Rx Furosemide [Lasix TAB] 80 mg PO DAILY tablet 03/15/21 Unknown Rx Metoprolol [Lopressor TAB] 25 mg PO Q6HR tablet 03/15/21 Unknown Rx bisacodyL [Dulcolax suppos] 10 mg [place] QDAY PRN supp.rect 03/15/21 Unknown Rx AtorvaSTATin [Lipitor] 40 mg PO QHS tablet 03/18/21 Unknown Rx Gabapentin 100 mg PO BID capsule 03/18/21 Unknown Rx Insulin NPH/Regular [NovoLIN 70/30] 8 unit SUB-Q BIDDIAB units 03/18/21 Unknown Rx Active Medications: Generic Name Dose Route Start Last Admin Trade Name Freq PRN Reason Stop Dose Admin Acetaminophen 650 mg 03/13/21 07:57 03/13/21 14:49 Acetaminophen 325 Mg Tab PO 650 mg Q4H PRN Administration Pain, Mild (1-3) Albuterol 2.5 mg 03/13/21 08:00 Albuterol 2.5 Mg/3 Ml Nebu IH Q3HRT PRN Shortness Of Breath Allopurinol 100 mg 03/14/21 10:00 03/17/21 16:38 Allopurinol 100 Mg Tab PO Not Given QDAY [facility] Apixaban 5 mg 03/15/21 13:00 03/17/21 21:35 Apixaban 5 Mg Tab PO 5 mg Q12HR [facility] Administration Protocol Atorvastatin Calcium 40 mg 03/13/21 22:00 03/17/21 21:35 Atorvastatin 40 Mg Tab PO 40 mg QHS [facility] Administration Baclofen 5 mg 03/13/21 15:30 03/17/21 21:53 Baclofen 10 Mg Tab PO 5 mg BID [facility] Administration Bisacodyl 10 mg 03/13/21 10:00 Bisacodyl 10 Mg Rect Supp RI QDAY PRN Constipation Dextrose 50 ml 03/13/21 07:57 03/16/21 06:37 Dextrose 50% In Water (25gm) 50 Ml Syringe IV 50 ml Q30MIN PRN Administration Hypoglycemia Protocol Famotidine 20 mg 03/15/21 10:00 03/17/21 16:38 Famotidine 20 Mg/2 Ml Inj IV Not Given DAILY [facility] Furosemide 80 mg 03/13/21 13:00 03/17/21 16:37 Furosemide 40 Mg Tab PO Not Given DAILY [facility] Gabapentin 200 mg 03/17/21 10:00 03/17/21 21:35 Gabapentin 100 Mg Cap PO 200 mg BID [facility] Administration Sodium Chloride 100 mls @ 999 mls/hr 03/14/21 09:21 Nacl 0.9% IV STACIA PRN Hypotension Sodium Chloride 100 mls @ 999 mls/hr 03/17/21 14:11 Nacl 0.9% IV STACIA PRN Hypotension Insulin Human Isoph/Insulin Regular 8 unit 03/18/21 08:00 Insulin Nph/Regular 70/30 Inj SUB-Q BIDDIAB [facility] Insulin Human Lispro 0 unit 03/13/21 11:30 03/17/21 21:51 Insulin Lispro 100 Unit/Ml SUB-Q 3 unit ACHS [facility] Administration Protocol Lactulose 20 gm 03/13/21 13:00 Lactulose 20 Gm/30 Ml Oral Liqd PO QDAY PRN Constipation Levothyroxine Sodium 50 mcg 03/14/21 06:00 03/18/21 06:25 Levothyroxine 50 Mcg Tab PO 50 mcg DAILY@0600 [facility] Administration Magnesium Hydroxide 30 ml 03/13/21 10:00 Magnesium Hydroxide (Mom) Oral Liqd Udc PO Q4H PRN Constipation Metoclopramide HCl 10 mg 03/13/21 10:00 Metoclopramide 10 Mg Tab PO Q6H PRN Nausea And Vomiting Metoprolol Tartrate 25 mg 03/14/21 12:55 03/18/21 06:25 Metoprolol Tartrate 25 Mg Tab PO 25 mg Q6HR [facility] Administration Naloxone HCl 0.1 mg 03/13/21 07:57 Naloxone 0.4 Mg/1 Ml Inj IV Q2MIN PRN Res Rate </= 8 or 02 SAT < 92% Ondansetron HCl 4 mg 03/13/21 10:00 Ondansetron 4 Mg/2 Ml Inj IV Q8H PRN Nausea And Vomiting Potassium Chloride 20 meq 03/14/21 10:00 03/17/21 16:37 Potassium Chloride Er 20 Meq Tab PO Not Given QDAY [facility] Promethazine HCl 25 mg 03/13/21 10:00 Promethazine 25 Mg Rect Supp RI Q6H PRN Nausea And Vomiting Sodium Chloride 10 ml 03/13/21 07:57 03/16/21 06:34 Sodium Chloride 0.9% 10 Ml Flush Syringe IV 10 ml PRN PRN Administration LINE FLUSH Tramadol HCl 50 mg 03/13/21 17:30 03/14/21 02:56 Tramadol 50 Mg Tab PO 50 mg Q6H PRN Administration Pain, Moderate (4-6)
--- NOTE | 2021-03-19 09:07 | Progress Note ---
Assessment and Plan Assessment - End-stage renal disease on hemodialysis - Acute encephalopathy - Malfunctioning AV access - Patient is s/p fistulogram w/ declot on March 17 - Hypertension - Secondary hyperparathyroidism - Elevated troponin Recommendations - Continue outpatient MWF schedule - Monitor labs and volume status daily to assess need for dialysis - Continue home antihypertensives - No indication for epogen at this time - ESRD diet with 1.4 g/kg per day protein - Dose medications for renal function - Cardiology and neurology consult note reviewed Subjective Date of service: 03/19/21 Principal diagnosis: confusion and right side weakness Interval history: Patient has no complaints today Objective - Vital Signs Vital signs: Vital Signs - 12hr 03/18/21 03/18/21 03/19/21 22:00 23:28 03:40 Temperature 98.5 F 98.2 F Pulse Rate 58 L 60 61 Respiratory 16 16 Rate Blood Pressure 117/39 134/47 O2 Sat by Pulse 95 97 Oximetry 03/19/21 03/19/21 08:34 08:47 Temperature Pulse Rate 61 Respiratory Rate Blood Pressure O2 Sat by Pulse 98 Oximetry - General Appearance General appearance: well-developed, well-nourished EENT: ATNC Respiratory: Present: Clear to Ascultation Cardiology: regular, S1S2 Gastrointestinal: normal, no tenderness, no distended Integumentary: no rash Neurologic: no focal deficit, alert and oriented x3 Psychiatric: cooperative - Lab 03/19/21 05:09 03/18/21 07:03 Most recent lab results Calcium 9.6 mg/dL (8.4-10.2) 03/16/21 04:44 Magnesium 2.50 mg/dL (1.7-2.3) H 03/14/21 13:47 Medications & Allergies - Medications Allergies/Adverse Reactions: Allergies codeine Allergy (Intermediate, Verified 09/07/20 13:26) Unknown Penicillins Adverse Reaction (Severe, Verified 09/07/20 13:26) Unknown Home Medications: Home Medications Medication Instructions Recorded Confirmed Last Taken Type FLUoxetine [PROzac] 20 mg PO QDAY 02/10/14 03/14/21 01/24/19 History allopurinoL [Zyloprim] 100 mg PO QDAY 02/10/14 03/13/21 01/24/19 History Baclofen [Lioresal] 5 mg PO BID #60 tablet 04/05/14 03/13/21 01/24/19 Rx Levothyroxine [Synthroid] 50 mcg PO QAM 01/24/19 03/13/21 01/25/19 05:00 History Lactulose [Cephulac] 20 gm PO QDAY PRN #7 oral.liqd 09/10/20 03/14/21 Unknown Rx ALBUTEROL NEB's [Proventil 0.083% 2.5 mg IH Q3HRT PRN nebu 03/15/21 Unknown Rx NEBS] Apixaban [Eliquis] 5 mg PO Q12HR tablet 03/15/21 Unknown Rx Furosemide [Lasix TAB] 80 mg PO DAILY tablet 03/15/21 Unknown Rx Metoprolol [Lopressor TAB] 25 mg PO Q6HR tablet 03/15/21 Unknown Rx bisacodyL [Dulcolax suppos] 10 mg [place] QDAY PRN supp.rect 03/15/21 Unknown Rx AtorvaSTATin [Lipitor] 40 mg PO QHS tablet 03/18/21 Unknown Rx Gabapentin 100 mg PO BID capsule 03/18/21 Unknown Rx Insulin NPH/Regular [NovoLIN 70/30] 8 unit SUB-Q BIDDIAB units 03/18/21 Unknown Rx Active Medications: Generic Name Dose Route Start Last Admin Trade Name Freq PRN Reason Stop Dose Admin Acetaminophen 650 mg 03/13/21 07:57 03/13/21 14:49 Acetaminophen 325 Mg Tab PO 650 mg Q4H PRN Administration Pain, Mild (1-3) Albuterol 2.5 mg 03/13/21 08:00 Albuterol 2.5 Mg/3 Ml Nebu IH Q3HRT PRN Shortness Of Breath Allopurinol 100 mg 03/14/21 10:00 03/18/21 21:26 Allopurinol 100 Mg Tab PO Not Given QDAY [facility] Apixaban 5 mg 03/15/21 13:00 03/18/21 22:09 Apixaban 5 Mg Tab PO 5 mg Q12HR [facility]CO Administration Protocol Atorvastatin Calcium 40 mg 03/13/21 22:00 03/18/21 22:09 Atorvastatin 40 Mg Tab PO 40 mg QHS [facility] Administration Baclofen 5 mg 03/13/21 15:30 03/18/21 22:09 Baclofen 10 Mg Tab PO 5 mg BID [facility] Administration Bisacodyl 10 mg 03/13/21 10:00 Bisacodyl 10 Mg Rect Supp [place] QDAY PRN Constipation Dextrose 50 ml 03/13/21 07:57 03/16/21 06:37 Dextrose 50% In Water (25gm) 50 Ml Syringe IV 50 ml Q30MIN PRN Administration Hypoglycemia Protocol Famotidine 20 mg 03/19/21 10:00 Famotidine 20 Mg Tab PO DAILY [facility] Furosemide 80 mg 03/13/21 13:00 03/18/21 21:26 Furosemide 40 Mg Tab PO Not Given DAILY [facility] Gabapentin 200 mg 03/17/21 10:00 03/18/21 22:08 Gabapentin 100 Mg Cap PO 200 mg BID [facility] Administration Sodium Chloride 100 mls @ 999 mls/hr 03/18/21 09:56 Nacl 0.9% IV STACIA PRN Hypotension Insulin Human Isoph/Insulin Regular 8 unit 03/18/21 08:00 03/18/21 18:39 Insulin Nph/Regular 70/30 Inj SUB-Q 8 unit BIDDIAB [facility] Administration Insulin Human Lispro 0 unit 03/13/21 11:30 03/18/21 22:10 Insulin Lispro 100 Unit/Ml SUB-Q 3 unit ACHS [facility] Administration Protocol Lactulose 20 gm 03/13/21 13:00 Lactulose 20 Gm/30 Ml Oral Liqd PO QDAY PRN Constipation Levothyroxine Sodium 50 mcg 03/14/21 06:00 03/19/21 06:22 Levothyroxine 50 Mcg Tab PO 50 mcg DAILY@0600 [facility] Administration Magnesium Hydroxide 30 ml 03/13/21 10:00 Magnesium Hydroxide (Mom) Oral Liqd Udc PO Q4H PRN Constipation Metoclopramide HCl 10 mg 03/13/21 10:00 Metoclopramide 10 Mg Tab PO Q6H PRN Nausea And Vomiting Metoprolol Tartrate 25 mg 03/14/21 12:55 03/19/21 00:39 Metoprolol Tartrate 25 Mg Tab PO 25 mg Q6HR [facility] Administration Naloxone HCl 0.1 mg 03/13/21 07:57 Naloxone 0.4 Mg/1 Ml Inj IV Q2MIN PRN Res Rate </= 8 or 02 SAT < 92% Ondansetron HCl 4 mg 03/13/21 10:00 Ondansetron 4 Mg/2 Ml Inj IV Q8H PRN Nausea And Vomiting Potassium Chloride 20 meq 03/14/21 10:00 03/18/21 21:26 Potassium Chloride Er 20 Meq Tab PO Not Given QDAY [facility] Promethazine HCl 25 mg 03/13/21 10:00 Promethazine 25 Mg Rect Supp NJ Q6H PRN Nausea And Vomiting Sodium Chloride 10 ml 03/13/21 07:57 03/18/21 22:10 Sodium Chloride 0.9% 10 Ml Flush Syringe IV 10 ml PRN PRN Administration LINE FLUSH Tramadol HCl 50 mg 03/13/21 17:30 03/18/21 22:09 Tramadol 50 Mg Tab PO 50 mg Q6H PRN Administration Pain, Moderate (4-6)
[2021-03-19] MEDS: INSULIN NPH/REGULAR 70/30 INJ SUB-Q SCH (09:49)
[2021-03-19] MEDS: POTASSIUM CHLORIDE ER 20 MEQ TAB PO SCH (09:49)
[2021-03-19] MEDS: allopurinoL 100 MG TAB PO SCH (09:49)
[2021-03-19] MEDS: BACLOFEN 10 MG TAB PO SCH (09:49)
[2021-03-19] MEDS: APIXABAN 5 MG TAB PO SCH (09:49)
[2021-03-19] MEDS: INSULIN LISPRO 100 UNIT/ML SUB-Q SCH (09:50)
[2021-03-19] MEDS: FUROSEMIDE 40 MG TAB PO SCH (09:50)
[2021-03-19] MEDS: GABAPENTIN 100 MG CAP PO SCH (09:50)
[2021-03-19] MEDS ORDERED: FAMOTIDINE 20 MG TAB PO SCH (10:00)
--- NOTE | 2021-03-19 11:37 | Progress Note ---
Assessment and Plan Transient atrial tachyarrhythmia/ NSVT on metoprolol for suppression Aphasia from a previous stroke previously considered no longer a candidate for oral anticoagulation due to severe epistaxis Carotid stenosis End-stage renal disease on HD Diabetes Malfunction AV access thrombosed AV access initiated on eliquis An echocardiogram shows dilatation of the right heart chambers, moderate tricuspid regurgitation, and at least moderate pulmonary hypertension. In addition, there was mild mitral stenosis. Normal left ventricular systolic function, ejection fraction 55-60%. Bubble study was negative. Continue metoprolol for suppression of tachyarrhythmias and mitral valve disease. Otherwise, conservative cardiac management. Subjective Date of service: 03/19/21 Principal diagnosis: confusion and right side weakness Interval history: Discharge planning is in process. Currently, she is stable sinus rhythm. Objective Vital Signs Temp Pulse Resp BP BP Pulse Ox 03/19/21 08:47 61 03/19/21 08:34 98 03/19/21 08:25 97.4 F L 65 18 114/51 03/19/21 03:40 98.2 F 61 16 134/47 97 03/18/21 23:28 98.5 F 60 16 117/39 95 03/18/21 22:00 58 L 03/18/21 19:53 98.1 F 47 L 18 173/60 03/18/21 19:47 47 L 173/60 03/18/21 19:45 53 L 150/50 03/18/21 19:30 69 148/62 03/18/21 19:15 78 168/111 03/18/21 19:00 60 119/84 03/18/21 18:45 72 141/38 03/18/21 18:30 67 153/50 03/18/21 18:15 65 151/57 03/18/21 18:00 57 L 135/71 03/18/21 17:45 62 127/58 03/18/21 17:30 62 141/61 03/18/21 17:15 62 142/68 03/18/21 17:00 62 136/59 03/18/21 16:45 61 136/53 03/18/21 16:30 61 133/65 03/18/21 16:15 60 141/41 03/18/21 16:00 97.5 F L 60 18 141/41 03/18/21 15:55 98.3 F 64 20 115/51 100 05/17/21 13:02 64 121/50 03/18/21 12:00 68 - Physical Examination General: No Apparent Distress (OBESE) HEENT: Positive: PERRL Neck: Positive: trachea midline Cardiac: Positive: Reg Rate and Rhythm Lungs: Positive: Decreased Breath Sounds Neuro: Positive: Weakness (right sided residual) - Labs and Meds CBC 03/19/21 Range/Units 05:09 WBC 6.3 (4.5-11.0) K/mm3 RBC 3.89 (3.65-5.03) M/mm3 Hgb 12.7 (10.1-14.3) gm/dl Hct 39.0 (30.3-42.9) % Plt Count 103 L (140-440) K/mm3
--- NOTE | 2021-03-19 12:30 | Progress Note ---
Assessment and Plan Acute metabolic encephalopathy History of CVA with residual right hemiparesis Bilateral carotid artery stenosis >75% and 90% Gastroenteritis with recent nausea vomiting End-stage renal disease on hemodialysis Paroxysmal atrial fibrillation not on AC due to history of epistaxis COPD Hypothyroidism - elevated TSH Thrombocytopenia Diabetes mellitus type II Possible gastroparesis related to diabetes Elevated Troponin Transaminitis Hyperkalemia, likely from end-stage renal disease Malfunctioning right arm AV fistula Hypoglycemia Plan Admitted with stroke protocol Cardiology, Neurology and Nephrology consult MRI/MRA per neurology Continue ASA, was recently taken off Xarelto due to severe epistaxis Resume appropriate home meds including ASA and statin PT/OT/SPEECH Monitor H/H and Plt Aspiration and fall precaution disposition planned for [facility]/SNF Brief history: patient is a 75-year-old female with history of CVA with residual right side weakness and aphasia, hypertension, diabetes, congestive heart fail ure with unknown EF, end-stage renal disease on hemodialysis and COPD brought to the emergency room via EMS from home with c/o AMS and unable to move her right upper and lower extremity. Her blood glucose was reported to be 500 by the family. Stroke protocol immediately initiated, Stroke neurology consulted. CT brain showed no hemorrhage. Patient was not a TPA candidate since symptoms is more than 4.5 hours. Patient was admitted for further evaluation and management. Daily clinical course: 03/14/21: MRI brain showed no acute ischemia. PT recommended subacute rehab. Medical management per cardiology. Neurology on the board. Continue to monitor the patient with stroke protocol, wait for speech therapy recommendation. water quality manager consulted for subacute rehab placement. Hemodialysis nephrology recommendation. Monitor BMP -hyperkalemia should be corrected with hemodialysis. 03/15: noted vascular recommendation for carotid artery stenosis- start on twan melchor, stop aspirin to minimize bleeding risk. follow BMP. Speech recommended pureed diet. Patient to d/c [facility] following HD tomorrow am per nephrology as patient on Thursday schedule. 03/16: HD access got clogged during HD today, vascular consulted. keep NPO after midnight. hold discharge for now 03/17: Status post fistulogram today with thrombectomy by vascular. Patient waiting on to get hemodialysis today. Possible discharge back to shelter once cleared by nephrology following dialysis. reduce NPH 70/30 dose to prevent hypoglycemia, cont SSI. 03/18: Patient clinically stable, BG improved. She was dialyzed yesterday and will have another HD today. She will be discharge to [facility] after HD. Subjective Date of service: 03/18/21 Principal diagnosis: confusion and right side weakness Interval history: Patient seen and examined. Medical records and medication list reviewed. No acute event overnight noted by the RN. Patient with right-sided hemiparesis Discussed plan of care at bedside with patient's RN. Speech recommended purred Diet, pt appears able to speak few word Plan for another hemodialysis today Patient will be discharged to subacute rehab Objective - Exam Narrative Exam: GENERAL: well-developed and well-nourished elderly female lying on bed HEENT: Normocephalic. Atraumatic. No conjunctival congestion or icterus. Patient has moist mucous membranes. NECK: Supple. Trachea midline. CHEST/LUNGS: Clear to auscultated bilaterally, breathing nonlabored. No wheezes crackles or rhonchi. HEART/CARDIOVASCULAR: Regular in rate and rhythm. S1 and S2 positive. ABDOMEN: Abdomen is soft, nontender. Patient has normal bowel sounds. SKIN: There is no rash. Warm and dry. Ecchymosis over the lower extremity NEURO: Patient is able to lift left upper and lower extremity. Follows command. Right-sided hemiparesis MUSCULOSKELETAL: No joint effusion or tenderness. EXTRIMITY: No edema, no cyanosis or clubbing. PSYCH: Cooperative. - Constitutional Vitals: Vital Signs - 12hr 03/19/21 03/19/21 03/19/21 03:40 08:25 08:34 Temperature 98.2 F 97.4 F L Pulse Rate 61 65 Respiratory 16 18 Rate Blood Pressure 134/47 Blood Pressure 114/51 [Left] O2 Sat by Pulse 97 98 Oximetry 03/19/21 08:47 Temperature Pulse Rate 61 Respiratory Rate Blood Pressure Blood Pressure [Left] O2 Sat by Pulse Oximetry - Labs CBC & Chem 7: 03/19/21 05:09 03/18/21 07:03 Labs: Abnormal lab results 03/18/21 03/18/21 03/19/21 Range/Units 15:55 20:22 05:09 MCV 100 H (79-97) fl MCH 33 H (28-32) pg RDW 16.6 H (13.2-15.2) % Plt Count 103 L (140-440) K/mm3 POC Glucose 246 H 243 H (70-105) mg/dL 05/18/21 05/18/21 Range/Units 08:23 11:32 MCV (79-97) fl MCH (28-32) pg RDW (13.2-15.2) % Plt Count (140-440) K/mm3 POC Glucose 183 H 273 H (70-105) mg/dL HEART Score - HEART Score Troponin: Troponin T 0.194 ng/mL (0.00-0.029) H* 03/14/21 13:47
[2021-03-19 12:42] VITALS: BP 108/78
[2021-03-19] MEDS ORDERED: INSULIN NPH/REGULAR 70/30 INJ SUB-Q SCH (13:00)
== END 2021-03-19 12:30 | DRG 37 ==
LOC: ED 00:57 → 4A 04:12
PROVIDERS: ADMIT Internal Medicine Geriatric Medicine; ATTEND Internal Medicine
PROC: 5A1D70Z Performance of Urinary Filtration, Intermittent, Less than 6 Hours Per Day (ICD-10-PCS; 2021-03-14)
PROC: 057Y3ZZ Dilation of Upper Vein, Percutaneous Approach (ICD-10-PCS; principal; 2021-03-17)
PROC: 03CY3ZZ Extirpation of Matter from Upper Artery, Percutaneous Approach (ICD-10-PCS; 2021-03-17)
PROC: B54MZZ3 Ultrasonography of Right Upper Extremity Veins, Intravascular (ICD-10-PCS; 2021-03-17)
PROC: 5A1D70Z Performance of Urinary Filtration, Intermittent, Less than 6 Hours Per Day (ICD-10-PCS; 2021-03-17)
PROC: B31H1ZZ Fluoroscopy of Right Upper Extremity Arteries using Low Osmolar Contrast (ICD-10-PCS; 2021-03-17)
PROC: 5A1D70Z Performance of Urinary Filtration, Intermittent, Less than 6 Hours Per Day (ICD-10-PCS; 2021-03-18)
DX: G93.41 Metabolic encephalopathy (principal); N18.6 End stage renal disease; T82.898A Other specified complication of vascular prosthetic devices, implants and grafts, initial encounter; I13.2 Hypertensive heart and chronic kidney disease with heart failure and with stage 5 chronic kidney disease, or end stage renal disease; N17.9 Acute kidney failure, unspecified; I69.951 Hemiplegia and hemiparesis following unspecified cerebrovascular disease affecting right dominant side; N25.81 Secondary hyperparathyroidism of renal origin; Z20.822 Contact with and (suspected) exposure to COVID-19; E87.5 Hyperkalemia; E11.22 Type 2 diabetes mellitus with diabetic chronic kidney disease; I25.10 Atherosclerotic heart disease of native coronary artery without angina pectoris; E78.5 Hyperlipidemia, unspecified; R79.89 Other specified abnormal findings of blood chemistry; R29.710 NIHSS score 10; I50.9 Heart failure, unspecified; K21.9 Gastro-esophageal reflux disease without esophagitis; K52.9 Noninfective gastroenteritis and colitis, unspecified; E03.9 Hypothyroidism, unspecified; D69.6 Thrombocytopenia, unspecified; I48.0 Paroxysmal atrial fibrillation; E11.649 Type 2 diabetes mellitus with hypoglycemia without coma; M19.90 Unspecified osteoarthritis, unspecified site; T50.905A Adverse effect of unspecified drugs, medicaments and biological substances, initial encounter; Y84.1 Kidney dialysis as the cause of abnormal reaction of the patient, or of later complication, without mention of misadventure at the time of the procedure; I65.23 Occlusion and stenosis of bilateral carotid arteries; J44.9 Chronic obstructive pulmonary disease, unspecified; Z79.4 Long term (current) use of insulin; Z79.899 Other long term (current) drug therapy; Z79.891 Long term (current) use of opiate analgesic; Z79.01 Long term (current) use of anticoagulants; Z88.5 Allergy status to narcotic agent; Z88.0 Allergy status to penicillin; Z99.2 Dependence on renal dialysis; Z95.1 Presence of aortocoronary bypass graft; Z85.3 Personal history of malignant neoplasm of breast; Y92.89 Other specified places as the place of occurrence of the external cause
CPT/HCPCS: 36415; 36905; 70450; 70496; 70498; 70544; 70551; 71045; 76770; 80048; 80061; 80074; 80076; 81001; 82140; 82550; 82553; 82565; 82962; 83735; 84439; 84443; 84484; 85025; 85027; 85610; 85670; 85730; 93005; 93306; 94640; G0378; A9270-GY; C1725; C1757; C1769; C1894; J1644; J1815; J2250; J2405; J3010; J7040; Q9967; U0003

== ENCOUNTER 2021-03-24 11:25 | Inpatient (IN) | payer MEDICARE ==
--- NOTE | 2021-03-24 12:13 | Emergency Department Report ---
HPI - General Chief Complaint: Altered Mental Status Time Seen by Provider: 03/24/21 11:51 - HPI HPI: Room 22 Patient 75-year-old female present with a chief complaint of altered mental status. Family states for the past 2 days the patient has been "in and out of consciousness." The daughter states the patient does not seem to be able to stay awake at times and is not behaving like her normal self. Today the patient had episodes of epistaxis prior to arrival. Daughter states the patient has been complaining of abdominal pain since last night. The daughter states she noticed swelling and bruising to the right lower extremity on 03/11/2021. There is been no history of trauma. When asked how she is feeling the patient replies with unintelligible mumbling speech ED Past Medical Hx - Past Medical History Previous Medical History?: Yes Hx Hypertension: Yes Hx Heart Attack/AMI: Yes Hx Congestive Heart Failure: Yes Hx Diabetes: Yes Hx Deep Vein Thrombosis: Yes Hx Pulmonary Embolism: Yes Hx GERD: Yes Hx Renal Disease: Yes (On dialysis ) Hx Arthritis: Yes Hx COPD: Yes Additional medical history: Aphasia - Surgical History Past Surgical History?: Yes Hx Open Heart Surgery: Yes (CABG 1998) Additional Surgical History: hx breast ca - Family History Family history: no significant - Social History Smoking Status: Former Smoker (None x30 years) Substance Use Type: None - Medications Home Medications: Home Medications Medication Instructions Recorded Confirmed Last Taken Type FLUoxetine [PROzac] 20 mg PO QDAY 02/10/14 03/14/21 01/24/19 History allopurinoL [Zyloprim] 100 mg PO QDAY 02/10/14 03/13/21 01/24/19 History Baclofen [Lioresal] 5 mg PO BID #60 tablet 04/05/14 03/13/21 01/24/19 Rx Levothyroxine [Synthroid] 50 mcg PO QAM 01/24/19 03/13/21 01/25/19 05:00 History Lactulose [Cephulac] 20 gm PO QDAY PRN #7 oral.liqd 09/10/20 03/14/21 Unknown Rx ALBUTEROL NEB's [Proventil 0.083% 2.5 mg IH Q3HRT PRN nebu 03/15/21 Unknown Rx NEBS] Apixaban [Eliquis] 5 mg PO Q12HR tablet 03/15/21 Unknown Rx Furosemide [Lasix TAB] 80 mg PO DAILY tablet 03/15/21 Unknown Rx Metoprolol [Lopressor TAB] 25 mg PO Q6HR tablet 03/15/21 Unknown Rx bisacodyL [Dulcolax suppos] 10 mg AL QDAY PRN supp.rect 03/15/21 Unknown Rx AtorvaSTATin [Lipitor] 40 mg PO QHS tablet 03/18/21 Unknown Rx Gabapentin 100 mg PO BID capsule 03/18/21 Unknown Rx Famotidine [Pepcid] 20 mg PO DAILY tablet 03/19/21 Unknown Rx Insulin NPH/Regular [NovoLIN 70/30] 12 unit SUB-Q BIDDIAB units 03/19/21 Unknown Rx ED Review of Systems ROS: Stated complaint: N/V Other details as noted in HPI Comment: Unobtainable due to pts medical conditions (Unintelligible speech) Physical Exam - Physical Exam Vital Signs: Vital Signs 03/24/21 11:54 Temperature 97.6 F Pulse Rate 65 Respiratory 16 Rate Blood Pressure 113/60 Blood Pressure 113/60 [Left] O2 Sat by Pulse 95 Oximetry Physical Exam: GENERAL: The patient is well-developed well-nourished female lying on stretcher resting comfortably not appearing to be in acute distress. [] HEENT: Normocephalic. Atraumatic. Extraocular motions are intact. Patient has moist mucous membranes. NECK: Supple. Trachea midline CHEST/LUNGS: Clear to auscultation. There is no respiratory distress noted. HEART/CARDIOVASCULAR: Regular. There is no tachycardia. There is no gallop rub or murmur. ABDOMEN: Abdomen is soft, with mild discomfort to palpation in the left lower quadrant. Patient has normal bowel sounds. There is no abdominal distention. SKIN: There is ecchymosis to the lateral aspect of the right lower extremity. There is 2+ bilateral lower extremity pitting edema. There is no diaphoresis. NEURO: The patient is asleep but awakens spontaneously. The patient exhibits mumbling speech that is unintelligible. There is right-sided deficits from previous CVA MUSCULOSKELETAL: There is swelling and bruising to the lateral aspect of the right lower extremity ED Course Vital Signs 03/24/21 11:54 Temperature 97.6 F Pulse Rate 65 Respiratory 16 Rate Blood Pressure 113/60 Blood Pressure 113/60 [Left] O2 Sat by Pulse 95 Oximetry - Reevaluation(s) Reevaluation #1: 03/24/21 15:44 Patient appears more alert at this time. Patient having coherent statements and states "I feel better." ED Medical Decision Making - Lab Data Laboratory Tests 03/24/21 03/24/21 03/24/21 12:17 12:43 12:43 APTT 30.7 ABG pH 7.428 POC ABG pCO2 34.3 POC ABG pO2 70.2 L POC ABG HCO3 22.2 ABG O2 Saturation 94.2 POC ABG Base Excess -1.5 ABG Hemoglobin 14.3 ABG Oxyhemoglobin 92.2 L ABG Methemoglobin 0.3 ABG Sodium 134.3 L ABG Potassium 4.1 ABG Chloride 99.0 ABG Glucose 192 H Carboxyhemoglobin 1.8 H FiO2 % 21.0 TSH 7.460 H Free T4 1.49 H Arterial Blood Glucose 192 H Arterial Blood Ionized Calcium 5.1 - Radiology Data Radiology results: report reviewed (Right tib-fib x-ray), image reviewed (Right tib-fib x-ray, CT head, CT abdomen pelvis, right lower extremity Doppler) interpreted by me: Right tib-fib x-ray-no acute fracture [facility] [address] [place] [address] XRay Report Signed Patient: ANNEL KOENIG MR#: [id number] : 1945 Acct:[id number] Age/Sex: 75 / F ADM Date: 03/24/21 Loc: ED Attending Dr: Ordering Physician: CHRISSY OLMSTEAD MD Date of Service: 03/24/21 Procedure(s): XR tibia fibula 2V RT Accession Number(s): [id number] cc: CHRISSY OLMSTEAD MD Fluoro Time In Minutes: RIGHT TIBIA-FIBULA 4 VIEW(S) INDICATION / CLINICAL INFORMATION: Right lower extremity swelling and bruising COMPARISON: None available. FINDINGS: BONES / JOINT(S): No acute fracture or subluxation. No significant arthritis. SOFT TISSUES: There is extensive circumferential subcutaneous edema throughout the visualized right leg. ADDITIONAL FINDINGS: None. Signer Name: Antonieta Mims MD Signed: 03/24/2021 12:27 PM Workstation Name: [id number] Transcribed By: SS Dictated By: ANTONIETA MIMS Electronically Authenticated By: ANTONIETA MIMS Signed Date/Time: 03/24/21 1227 DD/ TD/TT: Print Cancel [address] [address] Cat Scan Report Signed Patient: ANNEL KOENIG MR#: [id number] : 1945 Acct:[id number] Age/Sex: 75 / F ADM Date: 03/24/21 Loc: ED Attending Dr: Ordering Physician: CHRISSY OLMSTEAD MD Date of Service: 03/24/21 Procedure(s): CT head/brain wo con Accession Number(s): [id number] cc: CHRISSY OLMSTEAD MD CT HEAD WITHOUT CONTRAST INDICATION / CLINICAL INFORMATION: Altered mental status. TECHNIQUE: All CT scans at this location are performed using CT dose reduction for ALARA by means of automated exposure control. COMPARISON: 03/13/2021. FINDINGS: HEMORRHAGE: None. EXTRA-AXIAL SPACES: Normal in size and morphology for the patient's age. VENTRICULAR SYSTEM: Normal in size and morphology for the patient's age. CEREBRAL PARENCHYMA: Large region of encephalomalacia in the left MCA territory distribution. No acute territorial infarct. MIDLINE SHIFT OR HERNIATION: None. CEREBELLUM / BRAINSTEM: No significant abnormality. ORBITS: Normal as visualized. SOFT TISSUES of HEAD: No significant abnormality. CALVARIUM: No significant abnormality. PARANASAL SINUSES / MASTOID AIR CELLS: Normal as visualized. ADDITIONAL FINDINGS: None. IMPRESSION: 1. No acute intracranial abnormality. 2. Large chronic left MCA distribution infarct. Signer Name: Antonieta Mims MD Signed: 03/24/2021 2:10 PM Workstation Name: [id number] Transcribed By: SS Dictated By: ANTONIETA MIMS Electronically Authenticated By: ANTONIETA MIMS Signed Date/Time: 03/24/21 1410 DD/ 140 TD/TT: Print Cancel [address] [address] Cat Scan Report Signed Patient: ANNEL KOENIG MR#: [id number] : 1945 Acct:[id number] Age/Sex: 75 / F ADM Date: 03/24/21 Loc: ED Attending Dr: Ordering Physician: CHRISSY OLMSTEAD MD Date of Service: 03/24/21 Procedure(s): CT abdomen pelvis wo con Accession Number(s): [id number] cc: CHRISSY OLMSTEAD MD CT ABDOMEN AND PELVIS WITHOUT CONTRAST INDICATION: Left lower quadrant tenderness. TECHNIQUE: Axial CT images were obtained through the abdomen and pelvis without IV contrast. All CT scans at this location are performed using CT dose reduction for ALARA by means of automated exposure control. COMPARISON: None available. FINDINGS: LOWER CHEST: Sternotomy, CABG and cardiomegaly LIVER: No significant abnormality. GALLBLADDER: Calcified dependent gallstones without CT evidence for cholecystitis BILE DUCTS: No significant abnormality. PANCREAS: No significant abnormality. SPLEEN: No significant abnormality. ADRENALS: No significant abnormality. RIGHT KIDNEY and URETER: No significant abnormality. LEFT KIDNEY and URETER: No significant abnormality. STOMACH and SMALL BOWEL: No significant abnormality. COLON: Moderate sigmoid diverticulosis without diverticulitis. Marked constipation with fecal impaction with rectal wall thickening and perirectal inflammation characteristic for stercoral colitis APPENDIX: No significant abnormality. PERITONEUM: No free fluid. No free air. No fluid collection. LYMPH NODES: No significant adenopathy. AORTA and ARTERIES: Extensive vascular calcifications nonaneurysmal aorta IVC and VEINS: IVC filter URINARY BLADDER: No significant abnormality. REPRODUCTIVE ORGANS: No significant abnormality. ADDITIONAL FINDINGS: None. SKELETAL SYSTEM: Moderate facet degenerative disease lumbar spine IMPRESSION: 1. Severe constipation/fecal impaction with stercoral colitis 2. Cholelithiasis. IVC Filter Recommendation: IVC filters should be removed if possible when they are no longer clinically necessary. (1) Refer to the established IVC filter management plan; (2) If there is no established plan for the patient's IVC filter, consider referral to interventional/vascular clinician on a nonemergent basis for evaluation. Signer Name: Lraon Bonilla MD Signed: 03/24/2021 2:28 PM Workstation Name: [id number] Transcribed By: TL Dictated By: Laron Bonilla MD Electronically Authenticated By: Laron Bonilla MD Signed Date/Time: 03/24/211427 DD/ 23 TD/TT: Print Cancel [facility] [address] [place] [address] Vascular Lab Report Signed Patient: ANNEL KOENIG MR#: [id number] : 1945 Acct:[id number] Age/Sex: 75 / F ADM Date: 03/24/21 Loc: ED Attending Dr: Ordering Physician: CHRISSY OLMSTEAD MD Date of Service: 03/24/21 Procedure(s): VL venous duplex LE RT Accession Number(s): [id number] cc: CHRISSY OLMSTEAD MD DUPLEX DOPPLER LOWER EXTREMITY VEINS, RIGHT INDICATION / CLINICAL INFORMATION: Right lower extremity swelling and bruising. TECHNIQUE: Duplex doppler imaging was performed through the veins of the right lower extremity using venous compression and other maneuvers. COMPARISON: 09/25/2019. FINDINGS: RIGHT COMMON FEMORAL VEIN: Negative. RIGHT FEMORAL VEIN: Negative. RIGHT POPLITEAL VEIN: Negative. RIGHT CALF VEINS: Negative. ADDITIONAL FINDINGS: None. IMPRESSION: No sonographic evidence for DVT in the right lower extremity. Signer Name: Antonieta Mims MD Signed: 03/24/2021 2:30 PM Workstation Name: [id number] Transcribed By: SS Dictated By: ANTONIETA MIMS Electronically Authenticated By: ANTONIETA MIMS Signed Date/Time: 03/24/211429 DD/ 28 TD/TT: Print Cancel - Medical Decision Making Labs were delayed secondary to patient being a difficult stick. IV team had to be called in order to place an IV and obtain labs. Subsequently at the time of shift change the patient's CBC, coags, CMP and ammonia level are still pending pending and this was discussed with the admitting hospitalist (Dr Ward) and he states he will follow up on the lab values - Differential Diagnosis Altered mental status, DVT, hepatic encephalopathy, COPD, Critical care attestation.: If time is entered above; I have spent that time in minutes in the direct care of this critically ill patient, excluding procedure time. ED Disposition Clinical Impression: Altered mental status Disposition: DC-09 OP ADMIT IP TO THIS HOSP Is pt being admited?: Yes Does the pt Need Aspirin: No Condition: Fair Referrals: PRIMARY CARE, [Primary Care Provider] - 3-5 Days Time of Disposition: 15:48 (Hospitalist notified (Dr Ward))
--- NOTE | 2021-03-24 12:32 | XRay Report ---
RIGHT TIBIA-FIBULA 4 VIEW(S) INDICATION / CLINICAL INFORMATION: Right lower extremity swelling and bruising COMPARISON: None available. FINDINGS: BONES / JOINT(S): No acute fracture or subluxation. No significant arthritis. SOFT TISSUES: There is extensive circumferential subcutaneous edema throughout the visualized right l eg. ADDITIONAL FINDINGS: None. Signer Name: Evan Mims MD Signed: 03/24/2021 12:27 PM Workstation Name: [id number]
[2021-03-24 13:16] LABS: Free T4 (Free Thyroxine) 1.49 ng/dL (0.76-1.46)
--- NOTE | 2021-03-24 14:14 | Cat Scan Report ---
CT HEAD WITHOUT CONTRAST INDICATION / CLINICAL INFORMATION: Altered mental status. TECHNIQUE: All CT scans at this location are performed using CT dose reduction for ALARA by means of automated e xposure control. COMPARISON: 03/13/2021. FINDINGS: HEMORRHAGE: None. EXTRA-AXIAL SPACES: Normal in size and morphology for the patient's age. VENTRICULAR SYSTEM: Normal in size and morphology for the patient's age. CEREBRAL PARENCHYMA: Large region of encephalomalacia in the left MCA territory distribution. No acut e territorial infarct. MIDLINE SHIFT OR HERNIATION: None. CEREBELLUM / BRAINSTEM: No significant abnormality. ORBITS: Normal as visualized. SOFT TISSUES of HEAD: No significant abnormality. CALVARIUM: No significant abnormality. PARANASAL SINUSES / MASTOID AIR CELLS: Normal as visualized. ADDITIONAL FINDINGS: None. IMPRESSION: 1. No acute intracranial abnormality. 2. Large chronic left MCA distribution infarct. Signer Name: Evan Mims MD Signed: 03/24/2021 2:10 PM Workstation Name: [id number]
--- NOTE | 2021-03-24 14:32 | Cat Scan Report ---
CT ABDOMEN AND PELVIS WITHOUT CONTRAST INDICATION: Left lower quadrant tenderness. TECHNIQUE: Axial CT images were obtained through the abdomen and pelvis without IV contrast. All CT scans at [facility] are performed using CT dose reduction for ALARA by means of automated exposure control. COMPARISON: None available. FINDINGS: LOWER CHEST: Sternotomy, CABG and cardiomegaly LIVER: No significant abnormality. GALLBLADDER: Calcified dependent gallstones without CT evidence for cholecystitis BILE DUCTS: No significant abnormality. PANCREAS: No significant abnormality. SPLEEN: No significant abnormality. ADRENALS: No significant abnormality. RIGHT KIDNEY and URETER: No significant abnormality. LEFT KIDNEY and URETER: No significant abnormality. STOMACH and SMALL BOWEL: No significant abnormality. COLON: Moderate sigmoid diverticulosis without diverticulitis. Marked constipation with fecal impacti on with rectal wall thickening and perirectal inflammation characteristic for stercoral colitis APPENDIX: No significant abnormality. PERITONEUM: No free fluid. No free air. No fluid collection. LYMPH NODES: No significant adenopathy. AORTA and ARTERIES: Extensive vascular calcifications nonaneurysmal aorta IVC and VEINS: IVC filter URINARY BLADDER: No significant abnormality. REPRODUCTIVE ORGANS: No significant abnormality. ADDITIONAL FINDINGS: None. SKELETAL SYSTEM: Moderate facet degenerative disease lumbar spine IMPRESSION: 1. Severe constipation/fecal impaction with stercoral colitis 2. Cholelithiasis. IVC Filter Recommendation: IVC filters should be removed if possible when they are no longer clinical ly necessary. (1) Refer to the established IVC filter management plan; (2) If there is no established plan for the patient's IVC filter, consider referral to interventional/vascular clinician on a nonem ergent basis for evaluation. Signer Name: Laron Bonilla MD Signed: 03/24/2021 2:28 PM Workstation Name: [email or web address]
--- NOTE | 2021-03-24 14:34 | Vascular Lab Report ---
DUPLEX DOPPLER LOWER EXTREMITY VEINS, RIGHT INDICATION / CLINICAL INFORMATION: Right lower extremity swelling and bruising. TECHNIQUE: Duplex doppler imaging was performed through the veins of the right lower extremity using venous comp ression and other maneuvers. COMPARISON: 09/25/2019. FINDINGS: RIGHT COMMON FEMORAL VEIN: Negative. RIGHT FEMORAL VEIN: Negative. RIGHT POPLITEAL VEIN: Negative. RIGHT CALF VEINS: Negative. ADDITIONAL FINDINGS: None. IMPRESSION: No sonographic evidence for DVT in the right lower extremity. Signer Name: Evan Mims MD Signed: 03/24/2021 2:30 PM Workstation Name: [email or web address]
[2021-03-24 15:58] LABS: Basophils % (Auto) 0.4 % (0.0-1.8); Eosinophils # (Auto) 0.1 K/mm3 (0.0-0.4); Eosinophils % (Auto) 1.3 % (0.0-4.3); Hematocrit 44.6 % (30.3-42.9); Hemoglobin 14.2 gm/dl (10.1-14.3); Lymphocytes # (Auto) 0.6 K/mm3 (1.2-5.4); Lymphocytes % (Auto) 11.3 % (13.4-35.0); Mean Corpuscular HGB Conc 32 % (30-34); Mean Corpuscular Volume 101 fl (79-97); Monocytes # (Auto) 0.4 K/mm3 (0.0-0.8); Monocytes % (Auto) 6.3 % (0.0-7.3); Platelet Count 168 K/mm3 (140-440)
[2021-03-24 16:02] LABS: Creatine Kinase MB 2.5 ng/mL (0.0-4.0)
[2021-03-24 16:05] LABS: Albumin 3.5 g/dL (3.9-5); Calcium 10.4 mg/dL (8.4-10.2)
[2021-03-24 16:25] LABS: Chol/HDL Ratio 2.91 %
--- NOTE | 2021-03-24 22:51 | History and Physical Report ---
History of Present Illness Date of examination: 03/24/21 Date of admission: 03/24/21 19:49 Chief complaint: Altered mental status since a.m. History of present illness: 75-year-old female with end-stage renal disease congestive heart failure coronary artery disease hypertension and past cerebrovascular accident with aphasia and right-sided weakness brought in by EMS for altered mental status. Patient is normally aphasic. As per the family patient has been having altered sensorium for the past 24 hours. Unable to stay awake and not behaving her normal self. Also overall swelling of the bruising on the right lower extremity since 03/11/2021. No history of trauma. No fever or chills. No exposure to coronavirus. - Past Medical History Previous Medical History?: Yes -- Hypertension: Yes --Heart Attack/AMI: Yes -- Congestive Heart Failure: Yes --Diabetes: Yes --Deep Vein Thrombosis: Yes --Pulmonary Embolism: Yes --GERD: Yes --Renal Disease: Yes (On dialysis ) -- Arthritis: Yes --COPD: Yes --Additional medical history: Aphasia - Surgical History Past Surgical History?: Yes -- Open Heart Surgery: Yes (CABG 1998) Additional Surgical History: hx breast ca - Family History Family history: no significant - Social History Smoking Status: Former Smoker (None x30 years) Substance Use Type: None Review of Systems ROS: Constitutional altered sensorium HEENT no sore throat no post nasal drip no diplopia Neck no neck stiffness no lymph gland enlargement Chest and lungs no shortness of breath cough or wheezing CVS aphasic and right-sided weakness GI no nausea no vomiting no diarrhea Genitourinary system no dysuria no flank pain Musculoskeletal system bruising in the right lower extremity SYSTEM ADMIN no syncope no seizures Skin no rash no itching Psychiatric no depression no homicidal or suicidal tendencies Hematologic no lymphedema or bruising Endocrine no polydipsia no polyuria no cold intolerance no heat intolerance Medications and Allergies Allergies Allergy/AdvReac Type Severity Reaction Status Date / Time codeine Allergy Intermediate Unknown Verified 09/07/20 13:26 Penicillins AdvReac Severe Unknown Verified 09/07/20 13:26 Home Medications Medication Instructions Recorded Confirmed Last Taken Type FLUoxetine [PROzac] 20 mg PO QDAY 02/10/14 03/25/21 01/24/19 History allopurinoL [Zyloprim] 100 mg PO QDAY 02/10/14 03/25/21 01/24/19 History Baclofen [Lioresal] 5 mg PO BID #60 tablet 04/05/14 03/25/21 01/24/19 Rx Levothyroxine [Synthroid] 50 mcg PO QAM 01/24/19 03/25/21 01/25/19 05:00 History Lactulose [Cephulac] 20 gm PO QDAY PRN #7 oral.liqd 09/10/20 03/25/21 Unknown Rx ALBUTEROL NEB's [Proventil 0.083% 2.5 mg IH Q3HRT PRN nebu 03/15/21 03/25/21 Unknown Rx NEBS] Apixaban [Eliquis] 5 mg PO Q12HR tablet 03/15/21 03/25/21 Unknown Rx Furosemide [Lasix TAB] 80 mg PO DAILY tablet 03/15/21 03/25/21 Unknown Rx Metoprolol [Lopressor TAB] 25 mg PO Q6HR tablet 03/15/21 03/25/21 Unknown Rx bisacodyL [Dulcolax suppos] 10 mg [place] QDAY PRN supp.rect 03/15/21 03/25/21 Unknown Rx AtorvaSTATin [Lipitor] 40 mg PO QHS tablet 03/18/21 03/25/21 Unknown Rx Gabapentin 100 mg PO BID capsule 03/18/21 03/25/21 Unknown Rx Famotidine [Pepcid] 20 mg PO DAILY tablet 03/19/21 03/25/21 Unknown Rx Insulin NPH/Regular [NovoLIN 70/30] 12 unit SUB-Q BIDDIAB units 03/19/2103/25 Unknown Rx Exam - Constitutional Vitals: Temp Pulse Resp BP Pulse Ox 97.6 F 58 L 16 135/61 97 03/24/21 11:54 03/24/21 17:30 03/24/21 17:30 03/24/21 17:30 03/24/21 17:00 General appearance: Present: no acute distress, well-nourished - EENT Eyes: Present: PERRL ENT: hearing intact, clear oral mucosa - Neck Neck: Present: supple, normal ROM - Respiratory Respiratory effort: normal Respiratory: bilateral: CTA - Cardiovascular Heart rate: 78 Rhythm: regular Heart Sounds: Present: S1 & S2. Absent: rub, click - Extremities Extremities: no ischemia, pulses symmetrical, No edema, abnormal (Ecchymotic lesions x3-4 on the right lower extremity) Peripheral Pulses: within normal limits - Abdominal General gastrointestinal: Present: soft, non-tender, non-distended, normal bowel sounds Female genitourinary: Present: normal - Integumentary Integumentary: Present: clear, warm, dry - Musculoskeletal Musculoskeletal: right sided weakness - Psychiatric Psychiatric: other (Altered sensorium) - Neurologic Neurologic: CNII-XII intact, focal deficits (Right hemiplegia) - Allied Health Allied health notes reviewed: nursing, case management HEART Score - HEART Score History: Moderately suspicious Age: > 65 Risk factors: > 3 risk factors or hx of atherosclerotic disease Troponin: Troponin T 0.115 ng/mL (0.00-0.029) H* 03/24/21 14:59 Results - Labs CBC & Chem 7: 03/25/21 04:09 03/25/21 04:09 Labs: Laboratory Last Values WBC 5.7 K/mm3 (4.5-11.0) 03/24/21 14:59 RBC 4.40 M/mm3 (3.65-5.03) 03/24/21 14:59 Hgb 14.2 gm/dl (10.1-14.3) 03/24/21 14:59 Hct 44.6 % (30.3-42.9) H 03/24/21 14:59 MCV 101 fl (79-97) H 03/24/21 14:59 MCH 32 pg (28-32) 03/24/21 14:59 MCHC 32 % (30-34) 03/24/21 14:59 RDW 18.0 % (13.2-15.2) H 03/24/21 14:59 Plt Count 168 K/mm3 (140-440) 03/24/21 14:59 Lymph % (Auto) 11.3 % (13.4-35.0) L 03/24/21 14:59 [place] % (Auto) 6.3 % (0.0-7.3) 03/24/21 14:59 Eos % (Auto) 1.3 % (0.0-4.3) 03/24/21 14:59 Baso % (Auto) 0.4 % (0.0-1.8) 03/24/21 14:59 Lymph # (Auto) 0.6 K/mm3 (1.2-5.4) L 03/24/21 14:59 [place] # (Auto) 0.4 K/mm3 (0.0-0.8) 03/24/21 14:59 Eos # (Auto) 0.1 K/mm3 (0.0-0.4) 03/24/21 14:59 Baso # (Auto) 0.0 K/mm3 (0.0-0.1) 03/24/21 14:59 Seg Neutrophils % 80.7 % (40.0-70.0) H 03/24/21 14:59 Seg Neutrophils # 4.6 K/mm3 (1.8-7.7) 03/24/21 14:59 APTT 30.7 Sec. (24.2-36.6) 03/24/21 12:43 ABG pH 7.428 (7.320-7.450) 03/24/21 12:17 POC ABG pCO2 34.3 mmHg (32.0-48.0) 03/24/21 12:17 POC ABG pO2 70.2 mmHg (83-108) L 03/24/21 12:17 POC ABG HCO3 22.2 03/24/21 12:17 ABG O2 Saturation 94.2 (0-100) 03/24/21 12:17 POC ABG Base Excess -1.5 03/24/21 12:17 ABG Hemoglobin 14.3 (12.0-17.5) 03/24/21 12:17 ABG Oxyhemoglobin 92.2 (94-98) L 03/24/21 12:17 ABG Methemoglobin 0.3 (0.0-1.5) 03/24/21 12:17 ABG Sodium 134.3 mmol/L (136.0-145.0) L 03/24/21 12:17 ABG Potassium 4.1 mmol/L (3.40-4.50) 03/24/21 12:17 ABG Chloride 99.0 mmol/L (98-107) 03/24/21 12:17 ABG Glucose 192 mg/dL (65-95) H 03/24/21 12:17 Carboxyhemoglobin 1.8 (0.5-1.5) H 03/24/21 12:17 FiO2 % 21.0 03/24/21 12:17 Sodium 133 mmol/L (137-145) L 03/24/21 14:59 Potassium 5.0 mmol/L (3.6-5.0) 03/24/21 14:59 Chloride 93.6 mmol/L (98-107) L 03/24/21 14:59 Carbon Dioxide 23 mmol/L (22-30) 03/24/21 14:59 Anion Gap 21 mmol/L 03/24/21 14:59 BUN 29 mg/dL (7-17) H 03/24/21 14:59 Creatinine 4.2 mg/dL (0.6-1.2) H 03/24/21 14:59 Estimated GFR 12 ml/min 03/24/21 14:59 BUN/Creatinine Ratio 7 % 03/24/21 14:59 Glucose 170 mg/dL (65-100) H 03/24/21 14:59 Calcium 10.4 mg/dL (8.4-10.2) H 03/24/21 14:59 Total Bilirubin 1.00 mg/dL (0.1-1.2) 03/24/21 14:59 AST 53 units/L (5-40) H 03/24/21 14:59 ALT 26 units/L (7-56) 03/24/21 14:59 Alkaline Phosphatase 148 units/L (35-129) H 03/24/21 14:59 Ammonia 32.0 umol/L (25-60) 03/24/21 14:59 Total Creatine Kinase 61 units/L (30-135) 03/24/21 14:59 CK-MB (CK-2) 2.5 ng/mL (0.0-4.0) 03/24/21 14:59 CK-MB (CK-2) Rel Index 4.0 (0-4) 03/24/21 14:59 Troponin T 0.115 ng/mL (0.00-0.029) H* 03/24/21 14:59 NT-Pro-B Natriuret Pep 2249 pg/mL (0-900) H 03/24/21 14:59 Total Protein 7.7 g/dL (6.3-8.2) 03/24/21 14:59 Albumin 3.5 g/dL (3.9-5) L 03/24/21 14:59 Albumin/Globulin Ratio 0.8 % 03/24/21 14:59 Triglycerides 101 mg/dL (2-149) 03/24/21 14:59 Cholesterol 99 mg/dL (50-199) 03/24/21 14:59 LDL Cholesterol Direct 53 mg/dL (50-130) 03/24/21 14:59 HDL Cholesterol 34 mg/dL (40-59) L 03/24/21 14:59 Cholesterol/HDL Ratio 2.91 % 03/24/21 14:59 TSH 7.460 mlU/mL (0.270-4.200) H 03/24/21 12:43 Free T4 1.49 ng/dL (0.76-1.46) H 03/24/21 12:43 Arterial Blood Glucose 192 mg/dL (65-95) H 03/24/21 12:17 Arterial Blood Ionized Calcium 5.1 mg/dL (4.6-5.3) 03/24/21 12:17 Short CBC 03/24/21 03/25/21 Range/Units 14:59 04:09 WBC 5.7 5.1 (4.5-11.0) K/mm3 Hgb 14.2 14.1 (10.1-14.3) gm/dl Hct 44.6 H 42.3 (30.3-42.9) % Plt Count 168 158 (140-440) K/mm3 BMP 03/24/21 03/25/21 14:59 04:09 Sodium 133 L 135 L Potassium 5.0 4.5 Chloride 93.6 L 96.0 L Carbon Dioxide 23 23 BUN 29 H 32 H Creatinine 4.2 H 4.1 H Glucose 170 H 158 H Calcium 10.4 H 10.4 H Cardiac Enzymes 03/24/21 03/25/21 Range/Units 14:59 04:09 Total Creatine Kinase 61 (30-135) units/L CK-MB (CK-2) 2.5 (0.0-4.0) ng/mL Troponin T 0.115 H* 0.112 H* (0.00-0.029) ng/mL Liver Function 03/24/21 03/25/21 Range/Units 14:59 04:09 Total Bilirubin 1.00 1.00 (0.1-1.2) mg/dL AST 53 H 26 (5-40) units/L ALT 26 21 (7-56) units/L Alkaline Phosphatase 148 H 145 H (35-129) units/L Albumin 3.5 L 3.8 L (3.9-5) g/dL Assessment and Plan Advance Directives: Yes (Full code) VTE prophylaxis?: Chemical Plan of care discussed with patient/family: Yes - Patient Problems (1) Acute metabolic encephalopathy Current Visit: Yes Status: Acute Plan to address problem: Probably secondary to uremia We will go for emergent hemodialysis Nephrology consulted (2) End-stage renal disease needing dialysis Current Visit: Yes Status: Chronic Plan to address problem: Continue hemodialysis Nephrology consulted (3) Hypertension Current Visit: Yes Status: Chronic Qualifiers: Hypertension type: essential hypertension Qualified Code(s): I10 - Essential (primary) hypertension Plan to address problem: Continue antihypertensives and adjust medications (4) IDDM (insulin dependent diabetes mellitus) Current Visit: Yes Status: Chronic Plan to address problem: Check hemoglobin A1c and Continue home insulin and coverage (5) Hypothyroidism Current Visit: Yes Status: Chronic Qualifiers: Hypothyroidism type: acquired Qualified Code(s): E03.9 - Hypothyroidism, unspecified Plan to address problem: Continue levothyroxine Both TSH and T4 are elevated Possible sick euthyroid syndrome (6) Gout Current Visit: Yes Status: Inactive Plan to address problem: Continue allopurinol for prevention (7) Coronary artery disease Current Visit: Yes Status: Chronic Plan to address problem: Continue Eliquis Patient also has a history of DVT (8) Hyperlipidemia Current Visit: Yes Status: Chronic Qualifiers: Hyperlipidemia type: mixed hyperlipidemia Qualified Code(s): E78.2 - Mixed hyperlipidemia Plan to address problem: Continue statins (9) Peripheral neuropathy Current Visit: Yes Status: Chronic Qualifiers: Peripheral neuropathy type: polyneuropathy, unspecified Qualified Code(s): G62.9 - Polyneuropathy, unspecified Plan to address problem: Continue gabapentin May be gabapentin will be reduced (10) GERD (gastroesophageal reflux disease) Current Visit: Yes Status: Chronic Qualifiers: Esophagitis presence: without esophagitis Qualified Code(s): K21.9 - Gastro-esophageal reflux disease without esophagitis Plan to address problem: On PPIs (11) Elevated troponin Current Visit: Yes Status: Chronic Plan to address problem: NSTEMI type II Troponin leak (12) DVT prophylaxis Current Visit: Yes Status: Acute Plan to address problem: Patient on Eliquis and GI prophylaxis
[2021-03-24] MEDS ORDERED: ALBUTEROL 2.5 MG/3 ML NEBU IH PRN (22:56)
[2021-03-24] MEDS ORDERED: LACTULOSE 20 GM/30 ML ORAL LIQD PO PRN (22:56)
[2021-03-24] MEDS ORDERED: ONDANSETRON 4 MG/2 ML INJ IV PRN (22:57)
[2021-03-24] MEDS ORDERED: METOCLOPRAMIDE 10 MG/2 ML INJ IV PRN ×2 (22:57→23:18)
[2021-03-24] MEDS ORDERED: ACETAMINOPHEN 325 MG TAB PO PRN (22:57)
[2021-03-24] MEDS ORDERED: MORPHINE 2 MG/1 ML INJ IV PRN (22:57)
[2021-03-24] MEDS ORDERED: NON-FORMULARY EACH (Apixaban 5 MG Tablet) PO SCH (23:00)
[2021-03-24] MEDS: METOPROLOL TARTRATE 25 MG TAB PO SCH (23:56)
[2021-03-24] MEDS: APIXABAN 5 MG TAB PO SCH (23:56)
[2021-03-25 04:32] LABS: Basophils # (Auto) 0.1 K/mm3 (0.0-0.1); Basophils % (Auto) 2.2 % (0.0-1.8); Eosinophils # (Auto) 0.1 K/mm3 (0.0-0.4); Eosinophils % (Auto) 2.4 % (0.0-4.3); Hematocrit 42.3 % (30.3-42.9); Hemoglobin 14.1 gm/dl (10.1-14.3); Lymphocytes # (Auto) 0.5 K/mm3 (1.2-5.4); Lymphocytes % (Auto) 10.7 % (13.4-35.0); Mean Corpuscular HGB Conc 33 % (30-34); Mean Corpuscular Volume 101 fl (79-97); Monocytes # (Auto) 0.4 K/mm3 (0.0-0.8); Monocytes % (Auto) 8.3 % (0.0-7.3); Platelet Count 158 K/mm3 (140-440); Red Cell Distribution Width 18.1 % (13.2-15.2)
[2021-03-25 04:55] LABS: Albumin 3.8 g/dL (3.9-5); Calcium 10.4 mg/dL (8.4-10.2)
[2021-03-25] MEDS: METOPROLOL TARTRATE 25 MG TAB PO SCH ×4 (07:00→21:54)
[2021-03-25] MEDS: LEVOTHYROXINE 50 MCG TAB PO SCH (07:01)
[2021-03-25] MEDS: INSULIN LISPRO 100 UNIT/ML SUB-Q SCH ×4 (08:50→22:00)
[2021-03-25] MEDS: FAMOTIDINE 20 MG TAB PO SCH (09:06)
[2021-03-25] MEDS: FUROSEMIDE 40 MG TAB PO SCH (09:06)
[2021-03-25] MEDS: BACLOFEN 10 MG TAB PO SCH ×2 (09:06→21:54)
[2021-03-25] MEDS: FLUoxetine 20 MG CAP PO SCH (09:06)
[2021-03-25] MEDS: GABAPENTIN 100 MG CAP PO SCH ×2 (09:06→21:54)
[2021-03-25] MEDS: allopurinoL 100 MG TAB PO SCH (09:06)
[2021-03-25] MEDS: APIXABAN 5 MG TAB PO SCH ×2 (09:07→21:54)
--- NOTE | 2021-03-25 09:32 | Consultation ---
History of Present Illness - Reason for Consult Consult date: 03/25/21 end stage renal disease Requesting physician: MONE KEMP - History of Present Illness 75-year-old female with end-stage renal disease, congestive heart failure , coronary artery disease hypertension and past cerebrovascular accident with aphasia and right-sided weakness brought in by EMS for altered mental status. As per the family patient has been having altered sensorium for 24 hours prior to admission. Unable to stay awake and not behaving her normal self. Also overall swelling of the bruising on the right lower extremity since 03/11/2021. No history of trauma. No fever or chills. No exposure to coronavirus. This morning however patient seems to be awake and alert. Having breakfast. Denies any shortness of breath. Patient undergoes dialysis on MWF schedule at [facility] Past History Past Medical History: CAD, dialysis, hypertension, stroke Past Surgical History: Other (History of creation of AV graft) Social history: no significant social history Family history: no significant family history Medications and Allergies Allergies Allergy/AdvReac Type Severity Reaction Status Date / Time codeine Allergy Intermediate Unknown Verified 09/07/20 13:26 Penicillins AdvReac Severe Unknown Verified 09/07/20 13:26 Home Medications Medication Instructions Recorded Confirmed Last Taken Type FLUoxetine [PROzac] 20 mg PO QDAY 02/10/14 03/25/21 01/24/19 History allopurinoL [Zyloprim] 100 mg PO QDAY 02/10/14 03/25/21 01/24/19 History Baclofen [Lioresal] 5 mg PO BID #60 tablet 04/05/14 03/25/21 01/24/19 Rx Levothyroxine [Synthroid] 50 mcg PO QAM 01/24/19 03/25/21 01/25/19 05:00 History Lactulose [Cephulac] 20 gm PO QDAY PRN #7 oral.liqd 09/10/20 03/25/21 Unknown Rx ALBUTEROL NEB's [Proventil 0.083% 2.5 mg IH Q3HRT PRN nebu 03/15/21 03/25/21 Unknown Rx NEBS] Apixaban [Eliquis] 5 mg PO Q12HR tablet 03/15/21 03/25/21 Unknown Rx Furosemide [Lasix TAB] 80 mg PO DAILY tablet 03/15/21 03/25/21 Unknown Rx Metoprolol [Lopressor TAB] 25 mg PO Q6HR tablet 03/15/21 03/25/21 Unknown Rx bisacodyL [Dulcolax suppos] 10 mg [place] QDAY PRN supp.rect 03/15/21 03/25/21 Unknown Rx AtorvaSTATin [Lipitor] 40 mg PO QHS tablet 03/18/21 03/25/21 Unknown Rx Gabapentin 100 mg PO BID capsule 03/18/21 03/25/21 Unknown Rx Famotidine [Pepcid] 20 mg PO DAILY tablet 03/19/21 03/25/21 Unknown Rx Insulin NPH/Regular [NovoLIN 70/30] 12 unit SUB-Q BIDDIAB units 03/19/21 03/25/21 Unknown Rx Active Meds: Active Medications Acetaminophen (Acetaminophen 325 Mg Tab) 650 mg PO Q4H PRN PRN Reason: Pain MILD(1-3)/Fever >100.5/MALONE Albuterol (Albuterol 2.5 Mg/3 Ml Nebu) 2.5 mg IH Q3HRT PRN PRN Reason: Shortness Of Breath Allopurinol (Allopurinol 100 Mg Tab) 100 mg PO QDAY [facility] Last Admin: 03/25/21 09:06 Dose: 100 mg Documented by: Apixaban (Apixaban 5 Mg Tab) 5 mg PO Q12HR [facility] Last Admin: 03/25/21 09:07 Dose: 5 mg Documented by: Atorvastatin Calcium (Atorvastatin 40 Mg Tab) 40 mg PO QHS [facility] Baclofen (Baclofen 10 Mg Tab) 5 mg PO BID [facility] Last Admin: 03/25/21 09:06 Dose: 5 mg Documented by: Bisacodyl (Bisacodyl 10 Mg Rect Supp) 10 mg [place] QDAY PRN PRN Reason: Constipation Famotidine (Famotidine 20 Mg Tab) 20 mg PO DAILY [facility] Last Admin: 03/25/21 09:06 Dose: 20 mg Documented by: Fluoxetine HCl (Fluoxetine 20 Mg Cap) 20 mg PO QDAY [facility] Last Admin: 03/25/21 09:06 Dose: 20 mg Documented by: Furosemide (Furosemide 40 Mg Tab) 80 mg PO DAILY [facility] Last Admin: 03/25/21 09:06 Dose: 80 mg Documented by: Gabapentin (Gabapentin 100 Mg Cap) 100 mg PO BID [facility] Last Admin: 03/25/21 09:06 Dose: 100 mg Documented by: Insulin Human Isoph/Insulin Regular (Insulin Nph/Regular 70/30 Inj) 12 unit SUB-Q BIDDIAB [facility] Insulin Human Lispro (Insulin Lispro 100 Unit/Ml) 0 unit SUB-Q ACHS [facility]; Protocol Last Admin: 03/25/21 08:50 Dose: Not Given Documented by: Lactulose (Lactulose 20 Gm/30 Ml Oral Liqd) 20 gm PO QDAY PRN PRN Reason: Constipation Levothyroxine Sodium (Levothyroxine 50 Mcg Tab) 50 mcg PO QAM@0600 [facility] Last Admin: 03/25/21 07:01 Dose: Not Given Documented by: Metoclopramide HCl (Metoclopramide 10 Mg/2 Ml Inj) 5 mg IV Q6H PRN PRN Reason: Nausea And Vomiting Metoprolol Tartrate (Metoprolol Tartrate 25 Mg Tab) 25 mg PO Q6HR [facility] Last Admin: 03/25/21 07:00 Dose: Not Given Documented by: Morphine Sulfate (Morphine 2 Mg/1 Ml Inj) 2 mg IV Q4H PRN PRN Reason: Pain, Moderate (4-6) Ondansetron HCl (Ondansetron 4 Mg/2 Ml Inj) 4 mg IV Q8H PRN PRN Reason: Nausea And Vomiting Sodium Chloride (Sodium Chloride 0.9% 10 Ml Flush Syringe) 10 ml IV BID [facility] Last Admin: 03/25/21 09:15 Dose: 10 ml Documented by: Sodium Chloride (Sodium Chloride 0.9% 10 Ml Flush Syringe) 10 ml IV PRN PRN PRN Reason: LINE FLUSH Review of Systems ROS unobtainable: due to mental status Exam - Vital Signs Vital signs: Vital Signs BP Pulse Ox 113/60 78 L 03/24/21 11:33 03/24/21 11:33 - General Appearance General appearance: well-developed, well-nourished, appears stated age EENT: PERRL, mucous membranes moist Neck: Present: neck supple, trachea midline. Absent: JVD/HJR, Masses Respiratory: Clear to Ascultation Heart: regular, normal heart rate Gastrointestinal: Present: normal, normoactive bowel sounds Integumentary: no rash, other (AV graft right upper extremity. Good bruit and thrill. 1+ pitting edema bilaterally) Results - Lab Results 03/25/21 04:09 03/25/21 04:09 Most recent lab results ABG pH 7.428 (7.320-7.450) 03/24/21 12:17 ABG O2 Saturation 94.2 (0-100) 03/24/21 12:17 Calcium 10.4 mg/dL (8.4-10.2) H 03/25/21 04:09 Assessment and Plan Impression * End-stage renal disease on maintenance hemodialysis * Altered mental status * Hypertension * Coronary artery disease * CVA * Peripheral edema Recommendations * Schedule patient for hemodialysis treatment today * Continue dialysis on MWF schedule as outpatient * Patient undergoes dialysis at [facility] on MWF schedule * No indication for Epogen at this time * Binders with meals * Adjust diet and meds for ESRD state * Avoid nephrotoxins * No IV, BP or venipuncture in her access arm * Patient does have some peripheral edema. Remove fluid as tolerated * Thank you very much for the consultation. Shall follow along with you
[2021-03-25] MEDS ORDERED: SODIUM CHLORIDE 0.9% 100 ML IV PRN (09:36)
[2021-03-25] MEDS ORDERED: POLYETHYLENE GLYCOL/ELECT SOLN 4000 ML PO NR (11:15)
--- NOTE | 2021-03-25 11:59 | Progress Note ---
Subjective Date of service: 03/25/21 Interval history: Chief complaint: Altered mental status since a.m. History of present illness: 75-year-old female with end-stage renal disease congestive heart failure coronary artery disease hypertension and past cerebrovascular accident with aphasia and right-sided weakness brought in by EMS for altered mental status. Patient is normally aphasic. As per the family patient has been having altered sensorium for the past 24 hours. Unable to stay awake and not behaving her normal self. Also overall swelling of the bruising on the right lower extremity since 03/11/2021. No history of trauma. No fever or chills. No exposure to coronavirus. 03/25 patient is awake and alert and oriented, aphasic but follows commands. she denies abdominal pain. She has not had any emesis since last night Denies chest pain or shortness of breath. Lab results reviewed. CT of the abdomen and pelvis results reviewed Assessment and plan Altered sensorium-resolved Patient appears awake and alert and most likely at her baseline Unclear etiology CT of the head results reviewed-no acute lesions. Large chronic left MCA infarct Stercoral colitis CT of the abdomen and pelvis results reviewed Will empirically start the patient on GoLYTELY and will stop GoLYTELY once she starts having good bowel movement I had a curbside discussion with GI Cholelithiasis-asymptomatic Based on CT of the abdomen results Patient denies nausea or vomiting or abdominal pain End-stage renal disease Nephrology note reviewed Patient is due for hemodialysis today Hypertension Fair Type 2 diabetes on insulin Continue home medication A1c 7.3 Hypothyroid Serum TSH is 7.6 Adjust Synthroid level CAD/DVT EF; greater than 55% with moderate pulmonary hypertension Continue home medications including Eliquis Hyperlipidemia Continue statin Elevated troponin Likely NSTEMI type II Patient denies any chest pain or shortness of breath No further cardiac work-up at this time Objective - Constitutional Vitals: Vital Signs - 12hr 03/24/21 03/24/21 03/25/21 23:55 23:56 04:03 Temperature 97.9 F Pulse Rate 59 L 58 L 80 Respiratory 12 Rate Blood Pressure 133/55 Blood Pressure [Left] O2 Sat by Pulse 95 Oximetry 03/25/21 05:51 Temperature 98.0 F Pulse Rate 80 Respiratory 14 Rate Blood Pressure Blood Pressure 140/58 [Left] O2 Sat by Pulse 95 Oximetry General appearance: Present: no acute distress, well-nourished - EENT Eyes: PERRL, EOM intact ENT: hearing intact - Neck Neck: supple, normal ROM, no masses or JVD - Respiratory Respiratory effort: normal Respiratory: bilateral: CTA - Cardiovascular Rhythm: regular Heart Sounds: Present: S1 & S2 Extremity abnormal: edema (Trace bilateral leg edema) - Gastrointestinal General gastrointestinal: Present: soft, non-tender Rectal Exam: deferred - Genitourinary Female genitourinary: deferred - Musculoskeletal Musculoskeletal: right sided weakness (Motor power in right upper extremity is 1/5 and then right lower extremities 2/5) - Psychiatric Psychiatric: appropriate mood/affect - Labs CBC & Chem 7: 03/25/21 04:09 03/25/21 04:09 Labs: Abnormal lab results 03/24/21 03/24/21 03/24/21 Range/Units 12:17 12:43 14:59 Hct 44.6 H (30.3-42.9) % MCV 101 H (79-97) fl MCH (28-32) pg RDW 18.0 H (13.2-15.2) % Lymph % (Auto) 11.3 L (13.4-35.0) % [place] % (Auto) (0.0-7.3) % Baso % (Auto) (0.0-1.8) % Lymph # (Auto) 0.6 L (1.2-5.4) K/mm3 Seg Neutrophils % 80.7 H (40.0-70.0) % POC ABG pO2 70.2 L (83-108) mmHg ABG Oxyhemoglobin 92.2 L (94-98) ABG Sodium 134.3 L (136.0-145.0) mmol/L ABG Glucose 192 H (65-95) mg/dL Carboxyhemoglobin 1.8 H (0.5-1.5) Sodium (137-145) mmol/L Chloride (98-107) mmol/L BUN (7-17) mg/dL Creatinine (0.6-1.2) mg/dL Glucose (65-100) mg/dL POC Glucose (70-105) mg/dL Hemoglobin A1c (4-6) % Calcium (8.4-10.2) mg/dL AST (5-40) units/L Alkaline Phosphatase (35-129) units/L Troponin T (0.00-0.029) ng/mL NT-Pro-B Natriuret Pep (0-900) pg/mL Albumin (3.9-5) g/dL HDL Cholesterol (40-59) mg/dL TSH 7.460 H (0.270-4.200) mlU/mL Free T4 1.49 H (0.76-1.46) ng/dL Arterial Blood Glucose 192 H (65-95) mg/dL 03/24/21 03/25/21 03/25/21 Range/Units 14:59 04:09 04:09 Hct (30.3-42.9) % MCV 101 H (79-97) fl MCH 33 H (28-32) pg RDW 18.1 H (13.2-15.2) % Lymph % (Auto) 10.7 L (13.4-35.0) % [place] % (Auto) 8.3 H (0.0-7.3) % Baso % (Auto) 2.2 H (0.0-1.8) % Lymph # (Auto) 0.5 L (1.2-5.4) K/mm3 Seg Neutrophils % 76.4 H (40.0-70.0) % POC ABG pO2 (83-108) mmHg ABG Oxyhemoglobin (94-98) ABG Sodium (136.0-145.0) mmol/L ABG Glucose (65-95) mg/dL Carboxyhemoglobin (0.5-1.5) Sodium 133 L 135 L (137-145) mmol/L Chloride 93.6 L 96.0 L (98-107) mmol/L BUN 29 H 32 H (7-17) mg/dL Creatinine 4.2 H 4.1 H (0.6-1.2) mg/dL Glucose 170 H 158 H (65-100) mg/dL POC Glucose (70-105) mg/dL Hemoglobin A1c (4-6) % Calcium 10.4 H 10.4 H (8.4-10.2) mg/dL AST 53 H (5-40) units/L Alkaline Phosphatase 148 H 145 H (35-129) units/L Troponin T 0.115 H* 0.112 H* (0.00-0.029) ng/mL NT-Pro-B Natriuret Pep 2249 H (0-900) pg/mL Albumin 3.5 L 3.8 L (3.9-5) g/dL HDL Cholesterol 34 L (40-59) mg/dL TSH (0.270-4.200) mlU/mL Free T4 (0.76-1.46) ng/dL Arterial Blood Glucose (65-95) mg/dL 03/25/21 03/25/21 03/25/21 Range/Units 04:09 08:49 11:13 Hct (30.3-42.9) % MCV (79-97) fl MCH (28-32) pg RDW (13.2-15.2) % Lymph % (Auto) (13.4-35.0) % [place] % (Auto) (0.0-7.3) % Baso % (Auto) (0.0-1.8) % Lymph # (Auto) (1.2-5.4) K/mm3 Seg Neutrophils % (40.0-70.0) % POC ABG pO2 (83-108) mmHg ABG Oxyhemoglobin (94-98) ABG Sodium (136.0-145.0) mmol/L ABG Glucose (65-95) mg/dL Carboxyhemoglobin (0.5-1.5) Sodium (137-145) mmol/L Chloride (98-107) mmol/L BUN (7-17) mg/dL Creatinine (0.6-1.2) mg/dL Glucose (65-100) mg/dL POC Glucose 130 H 224 H (70-105) mg/dL Hemoglobin A1c 7.3 H (4-6) % Calcium (8.4-10.2) mg/dL AST (5-40) units/L Alkaline Phosphatase (35-129) units/L Troponin T (0.00-0.029) ng/mL NT-Pro-B Natriuret Pep (0-900) pg/mL Albumin (3.9-5) g/dL HDL Cholesterol (40-59) mg/dL TSH (0.270-4.200) mlU/mL Free T4 (0.76-1.46) ng/dL Arterial Blood Glucose (65-95) mg/dL HEART Score - HEART Score Age: > 65 Risk factors: > 3 risk factors or hx of atherosclerotic disease Troponin: Troponin T 0.112 ng/mL (0.00-0.029) H* 03/25/21 04:09
[2021-03-25] MEDS: INSULIN NPH/REGULAR 70/30 INJ SUB-Q SCH ×2 (12:33→18:07)
[2021-03-26] MEDS: LEVOTHYROXINE 50 MCG TAB PO SCH (06:01)
--- NOTE | 2021-03-26 09:25 | Progress Note ---
Assessment and Plan Impression * End-stage renal disease on maintenance hemodialysis * Altered mental status * Hypertension * Coronary artery disease * CVA * Peripheral edema Recommendations * Patient had uneventful hemodialysis yesterday * Continue dialysis on MWF schedule as outpatient * Patient undergoes dialysis at [facility] on MWF schedule * No indication for Epogen at this time * Binders with meals * Adjust diet and meds for ESRD state * Avoid nephrotoxins * No IV, BP or venipuncture in her access arm * Patient does have some peripheral edema. Remove fluid as tolerated Subjective Date of service: 03/26/21 Interval history: Patient is awake and alert. Appears comfortable. Uneventful hemodialysis yesterday Objective - Vital Signs Vital signs: Vital Signs - 12hr 03/25/21 03/25/21 03/25/21 21:54 22:00 23:00 Temperature Pulse Rate 119 H 61 Respiratory 18 Rate Blood Pressure O2 Sat by Pulse 99 Oximetry 03/25/21 03/26/21 23:34 03:45 Temperature 98.2 F 98.0 F Pulse Rate 68 58 L Respiratory 12 16 Rate Blood Pressure 99/52 111/54 O2 Sat by Pulse 99 96 Oximetry - General Appearance General appearance: well-developed, well-nourished, appears stated age EENT: PERRL, mucous membranes moist Neck: no JVD, no thyromegaly, no carotid bruit, supple Respiratory: Present: Clear to Ascultation Cardiology: regular, normal heart rate, S1S2, no murmurs Gastrointestinal: normal, normoactive bowel sounds Integumentary: no rash, other (AV graft in her right upper arm. Good bruit and thrill. 1+ pitting edema bilaterally) - Lab 03/25/21 04:09 03/25/21 04:09 Most recent lab results ABG pH 7.428 (7.320-7.450) 03/24/21 12:17 ABG O2 Saturation 94.2 (0-100) 03/24/21 12:17 Calcium 10.4 mg/dL (8.4-10.2) H 03/25/21 04:09 Medications & Allergies - Medications Allergies/Adverse Reactions: Allergies codeine Allergy (Intermediate, Verified 09/07/20 13:26) Unknown Penicillins Adverse Reaction (Severe, Verified 09/07/20 13:26) Unknown Home Medications: Home Medications Medication Instructions Recorded Confirmed Last Taken Type FLUoxetine [PROzac] 20 mg PO QDAY 02/10/14 03/25/21 01/24/19 History allopurinoL [Zyloprim] 100 mg PO QDAY 02/10/14 03/25/21 01/24/19 History Baclofen [Lioresal] 5 mg PO BID #60 tablet 04/05/14 03/25/21 01/24/19 Rx Levothyroxine [Synthroid] 50 mcg PO QAM 01/24/19 03/25/21 01/25/19 05:00 History Lactulose [Cephulac] 20 gm PO QDAY PRN #7 oral.liqd 09/10/20 03/25/21 Unknown Rx ALBUTEROL NEB's [Proventil 0.083% 2.5 mg IH Q3HRT PRN nebu 03/15/21 03/25/21 Unknown Rx NEBS] Apixaban [Eliquis] 5 mg PO Q12HR tablet 03/15/21 03/25/21 Unknown Rx Furosemide [Lasix TAB] 80 mg PO DAILY tablet 03/15/21 03/25/21 Unknown Rx Metoprolol [Lopressor TAB] 25 mg PO Q6HR tablet 03/15/21 03/25/21 Unknown Rx bisacodyL [Dulcolax suppos] 10 mg SD QDAY PRN supp.rect 03/15/21 03/25/21 Unknown Rx AtorvaSTATin [Lipitor] 40 mg PO QHS tablet 03/18/21 03/25/21 Unknown Rx Gabapentin 100 mg PO BID capsule 03/18/21 03/25/21 Unknown Rx Famotidine [Pepcid] 20 mg PO DAILY tablet 03/19/21 03/25/21 Unknown Rx Insulin NPH/Regular [NovoLIN 70/30] 12 unit SUB-Q BIDDIAB units 03/19/21 03/25/21 Unknown Rx Active Medications: Generic Name Dose Route Start Last Admin Trade Name Freq PRN Reason Stop Dose Admin Acetaminophen 650 mg 03/24/21 22:57 Acetaminophen 325 Mg Tab PO Q4H PRN Pain MILD(1-3)/Fever >100.5/MALONE Albuterol 2.5 mg 03/24/21 22:56 Albuterol 2.5 Mg/3 Ml Nebu IH Q3HRT PRN Shortness Of Breath Allopurinol 100 mg 03/25/21 10:00 03/25/21 09:06 Allopurinol 100 Mg Tab PO 100 mg QDAY CISCO Administration Apixaban 5 mg 03/24/21 23:00 03/25/21 21:54 Apixaban 5 Mg Tab PO 5 mg Q12HR CISCO Administration Atorvastatin Calcium 40 mg 03/25/21 22:00 03/25/21 21:54 Atorvastatin 40 Mg Tab PO 40 mg QHS CISCO Administration Baclofen 5 mg 03/25/21 10:00 03/25/21 21:54 Baclofen 10 Mg Tab PO 5 mg BID CISCO Administration Bisacodyl 10 mg 03/24/21 22:56 Bisacodyl 10 Mg Rect Supp SD QDAY PRN Constipation Famotidine 20 mg 03/25/21 10:00 03/25/21 09:06 Famotidine 20 Mg Tab PO 20 mg DAILY CISCO Administration Fluoxetine HCl 20 mg 03/25/21 10:00 03/25/21 09:06 Fluoxetine 20 Mg Cap PO 20 mg QDAY CISCO Administration Furosemide 80 mg 03/25/21 10:00 03/25/21 09:06 Furosemide 40 Mg Tab PO 80 mg DAILY CISCO Administration Gabapentin 100 mg 03/25/21 10:00 03/25/21 21:54 Gabapentin 100 Mg Cap PO 100 mg BID CISCO Administration Sodium Chloride 100 mls @ 999 mls/hr 03/25/21 09:36 Nacl 0.9% IV STACIA PRN Hypotension Insulin Human Isoph/Insulin Regular 12 unit 03/25/21 08:00 03/25/21 18:07 Insulin Nph/Regular 70/30 Inj SUB-Q 12 unit BIDDIAB CISCO Administration Insulin Human Lispro 0 unit 03/25/21 07:30 03/25/21 22:00 Insulin Lispro 100 Unit/Ml SUB-Q Not Given ACHS [facility] Protocol Lactulose 20 gm 03/24/21 22:56 Lactulose 20 Gm/30 Ml Oral Liqd PO QDAY PRN Constipation Levothyroxine Sodium 50 mcg 03/25/21 06:00 03/26/21 06:01 Levothyroxine 50 Mcg Tab PO 50 mcg QAM@0600 CISCO Administration Metoclopramide HCl 5 mg 03/24/21 23:18 Metoclopramide 10 Mg/2 Ml Inj IV Q6H PRN Nausea And Vomiting Metoprolol Tartrate 25 mg 03/25/21 13:00 03/25/21 21:54 Metoprolol Tartrate 25 Mg Tab PO 25 mg BID CISCO Administration Morphine Sulfate 2 mg 03/24/21 22:57 Morphine 2 Mg/1 Ml Inj IV Q4H PRN Pain, Moderate (4-6) Ondansetron HCl 4 mg 03/24/21 22:57 Ondansetron 4 Mg/2 Ml Inj IV Q8H PRN Nausea And Vomiting Sodium Chloride 10 ml 03/25/21 10:00 03/25/21 21:54 Sodium Chloride 0.9% 10 Ml Flush Syringe IV 10 ml BID CISCO Administration Sodium Chloride 10 ml 03/24/21 22:57 Sodium Chloride 0.9% 10 Ml Flush Syringe IV PRN PRN LINE FLUSH
[2021-03-26] MEDS: INSULIN LISPRO 100 UNIT/ML SUB-Q SCH ×4 (09:37→22:00)
[2021-03-26] MEDS: INSULIN NPH/REGULAR 70/30 INJ SUB-Q SCH (09:37)
[2021-03-26] MEDS: APIXABAN 5 MG TAB PO SCH ×2 (10:21→23:24)
[2021-03-26] MEDS: FUROSEMIDE 40 MG TAB PO SCH (10:21)
[2021-03-26] MEDS: GABAPENTIN 100 MG CAP PO SCH ×2 (10:21→23:25)
[2021-03-26] MEDS: FAMOTIDINE 20 MG TAB PO SCH (10:21)
[2021-03-26] MEDS: FLUoxetine 20 MG CAP PO SCH (10:21)
[2021-03-26] MEDS: allopurinoL 100 MG TAB PO SCH (10:21)
[2021-03-26] MEDS: BACLOFEN 10 MG TAB PO SCH ×2 (10:21→23:24)
[2021-03-26] MEDS: METOPROLOL TARTRATE 25 MG TAB PO SCH (10:24)
--- NOTE | 2021-03-26 10:30 | Electrocardiograph Report ---
[facility] Test Date: 2021-03-24 Test Time: 16:48:25 Pat Name: ANNEL KOENIG Department: Room: A473 Gender: F Utility Mechanic: SANDRA : 1945 Requested By: CHRISSY OLMSTEAD Order Number: [id number] Reading MD: Kevin Teague Measurements Intervals [place] Rate: 63 P: 49 OK: 204 QRS: 33 QRSD: 93 T: 165 QT: 465 QTc: 471 Interpretive Statements Sinus rhythm Ventricular premature complex Probable left atrial enlargement Abnormal T, consider ischemia, lateral leads Compared to ECG 03/13/2021 02:04:25 Ventricular premature complex(es) now present T-wave abnormality still present Possible ischemia still present Electronically Signed On 03-26-2021 10:30:05 EDT by Kevin Teague
[2021-03-26] MEDS ORDERED: METOPROLOL TARTRATE 25 MG TAB PO SCH (10:42)
--- NOTE | 2021-03-26 16:20 | Discharge Summary ---
Providers - Providers Date of Admission: 03/24/21 19:49 Date of discharge: 03/26/21 Attending physician: NANCY LUGO 03/24/21 22:57 Consult to Physician [CONS] Routine Comment: Consulting Provider: LEIGH SNIDER Physician Instructions: Reason For Exam: esrd 03/25/21 22:49 Occupational Therapy Evaluate and Treat [CONS] Routine Comment: Family requesting sub-acute rehab. Reason For Exam: Debility Physical Therapy Evaluation and Treat [CONS] Routine Comment: Family requesting Sub-acute rehab. Reason For Exam: Debility Primary care physician: WINCH STRIPPER Hospitalization Condition: Fair Hospital course: 75-year-old female with end-stage renal disease congestive heart failure coronary artery disease hypertension and past cerebrovascular accident with aphasia and right-sided weakness brought in by EMS for altered mental status. Patient was further evaluated by CT head which showed no acute lesion and large chronic left MCA infarct. CT abdomen pelvis was obtained as patient was complaining of abdominal pain which showed severe constipation with fecal impaction. Patient was treated with stool softeners and her symptom improved. Patient also noted to became hypoglycemic so her long-acting insulin was discontinued. Blood pressure medications were adjusted. Patient clinically remained stable. Patient was then discharged to [facility] in stable condition. Her Covid test was negative, discharge plan and management was thoroughly discussed with patient's son who was present at the bedside and he was in agreement with the plan. Disposition: [id number] SNF W [facility] CERT Final Discharge Diagnosis (Prints w/discharge instructions): Acute metabolic encephalopathy, likely due to dehydration. Stercoral colitis from fecal impaction, treated with GoLYTELY. End-stage renal disease on hemodialysis. Hypertension, stable. Diabetes mellitus type 2 with A1c 7.3, continue SSI only. Hypoglycemic episode, hold long-acting insulin. Hypothyroidism with TSH 7.6, adjusted Synthroid dose. History of coronary artery disease. History of DVT status post IVC filter placement. Hyperlipidemia. Chronically elevated troponin/NSTEMI type II due to end-stage renal disease Time spent for discharge: 38 minutes Core Measure Documentation - Palliative Care Palliative Care/ Comfort Measures: Not Applicable - Core Measures Any of the following diagnoses?: none Exam - Physical Exam Narrative exam: General appearance: Present: no acute distress, well-nourished - EENT Eyes: PERRL, EOM intact ENT: hearing intact - Neck Neck: supple, normal ROM, no masses or JVD - Respiratory Respiratory effort: normal Respiratory: bilateral: CTA - Cardiovascular Rhythm: regular Heart Sounds: Present: S1 & S2 Extremity abnormal: edema (Trace bilateral leg edema) - Gastrointestinal General gastrointestinal: Present: soft, non-tender Rectal Exam: deferred - Genitourinary Female genitourinary: deferred - Musculoskeletal Musculoskeletal: right sided weakness (Motor power in right upper extremity is 1/5 and then right lower extremities 2/5) - Psychiatric Psychiatric: appropriate mood/affect - Constitutional Vitals: Temp Pulse Resp BP Pulse Ox 98.1 F 61 18 108/41 99 03/26/21 08:07 03/26/21 10:24 03/26/21 10:00 03/26/21 10:24 03/26/21 10:00 Plan Activity: up only with assistance, fall precautions Diet: renal Special Instructions: record daily BP diary, record blood sugar diary (QACHS) Additional Instructions: Further plan of care will be managed by the biomedical repair technician at [facility] following discharge. Follow up with: PRIMARY MD ADRI [Primary Care Provider] - 3-5 Days
[2021-03-27] MEDS: LEVOTHYROXINE 50 MCG TAB PO SCH (05:40)
[2021-03-27] MEDS: INSULIN LISPRO 100 UNIT/ML SUB-Q SCH ×3 (08:07→18:29)
--- NOTE | 2021-03-27 09:04 | Progress Note ---
Assessment and Plan Impression * End-stage renal disease on maintenance hemodialysis * Altered mental status * Hypertension * Coronary artery disease * CVA * Peripheral edema Recommendations * Continue dialysis on MWF schedule as outpatient * Patient undergoes dialysis at [facility] on MWF schedule * No indication for Epogen at this time * Binders with meals * Adjust diet and meds for ESRD state * Avoid nephrotoxins * No IV, BP or venipuncture in her access arm * Patient does have some peripheral edema. Remove fluid as tolerated * No objection to discharge from renal standpoint Subjective Date of service: 03/27/21 Interval history: Patient is comfortable this morning. Denies any shortness of breath. No nausea or vomiting. Objective - Vital Signs Vital signs: Vital Signs - 12hr 03/26/21 03/26/21 03/27/21 22:00 23:30 04:04 Temperature 97.8 F 97.5 F L Pulse Rate 65 62 Respiratory 18 20 19 Rate Blood Pressure 127/69 127/56 O2 Sat by Pulse 99 94 96 Oximetry 03/27/21 07:20 Temperature 98.0 F Pulse Rate 60 Respiratory 18 Rate Blood Pressure 141/52 O2 Sat by Pulse 94 Oximetry - General Appearance General appearance: well-developed, well-nourished, appears stated age EENT: PERRL, mucous membranes moist Neck: no JVD, no thyromegaly, no carotid bruit, supple Respiratory: Present: Clear to Ascultation Cardiology: regular, normal heart rate Gastrointestinal: normal, normoactive bowel sounds Integumentary: no rash, other (AV graft right upper extremity. Good bruit and thrill.) - Lab 03/25/21 04:09 03/25/21 04:09 Most recent lab results ABG pH 7.428 (7.320-7.450) 03/24/21 12:17 ABG O2 Saturation 94.2 (0-100) 03/24/21 12:17 Calcium 10.4 mg/dL (8.4-10.2) H 03/25/21 04:09 Medications & Allergies - Medications Allergies/Adverse Reactions: Allergies codeine Allergy (Intermediate, Verified 09/07/20 13:26) Unknown Penicillins Adverse Reaction (Severe, Verified 09/07/20 13:26) Unknown Home Medications: Home Medications Medication Instructions Recorded Confirmed Last Taken Type FLUoxetine [PROzac] 20 mg PO QDAY 02/10/14 03/25/21 01/24/19 History allopurinoL [Zyloprim] 100 mg PO QDAY 02/10/14 03/25/21 01/24/19 History Baclofen [Lioresal] 5 mg PO BID #60 tablet 04/05/14 03/25/21 01/24/19 Rx Levothyroxine [Synthroid] 50 mcg PO QAM 01/24/19 03/25/21 01/25/19 05:00 History Lactulose [Cephulac] 20 gm PO QDAY PRN #7 oral.liqd 09/10/20 03/25/21 Unknown Rx ALBUTEROL NEB's [Proventil 0.083% 2.5 mg IH Q3HRT PRN nebu 03/15/21 03/25/21 Unknown Rx NEBS] Apixaban [Eliquis] 5 mg PO Q12HR tablet 03/15/21 03/25/21 Unknown Rx Furosemide [Lasix TAB] 80 mg PO DAILY tablet 03/15/21 03/25/21 Unknown Rx bisacodyL [Dulcolax suppos] 10 mg SD QDAY PRN supp.rect 03/15/21 03/25/21 Unk nown Rx AtorvaSTATin [Lipitor] 40 mg PO QHS tablet 03/18/21 03/25/21 Unknown Rx Gabapentin 100 mg PO BID capsule 03/18/21 03/25/21 Unknown Rx Famotidine [Pepcid] 20 mg PO DAILY tablet 03/19/21 03/25/21 Unknown Rx Lispro Insulin [HumaLOG] 0 unit SUB-Q ACHS units 03/26/21 Unknown Rx Active Medications: Generic Name Dose Route Start Last Admin Trade Name Freq PRN Reason Stop Dose Admin Acetaminophen 650 mg 03/24/21 22:57 Acetaminophen 325 Mg Tab PO Q4H PRN Pain MILD(1-3)/Fever >100.5/MALONE Albuterol 2.5 mg 03/24/21 22:56 Albuterol 2.5 Mg/3 Ml Nebu IH Q3HRT PRN Shortness Of Breath Allopurinol 100 mg 03/25/21 10:00 03/26/21 10:21 Allopurinol 100 Mg Tab PO 100 mg QDAY CISCO Administration Apixaban 5 mg 03/24/21 23:00 03/26/21 23:24 Apixaban 5 Mg Tab PO 5 mg Q12HR CISCO Administration Atorvastatin Calcium 40 mg 03/25/21 22:00 03/26/21 23:24 Atorvastatin 40 Mg Tab PO 40 mg QHS CISCO Administration Baclofen 5 mg 03/25/21 10:00 03/26/21 23:24 Baclofen 10 Mg Tab PO 5 mg BID CISCO Administration Bisacodyl 10 mg 03/24/21 22:56 Bisacodyl 10 Mg Rect Supp SD QDAY PRN Constipation Famotidine 20 mg 03/25/21 10:00 03/26/21 10:21 Famotidine 20 Mg Tab PO 20 mg DAILY CISCO Administration Fluoxetine HCl 20 mg 03/25/21 10:00 03/26/21 10:21 Fluoxetine 20 Mg Cap PO 20 mg QDAY CISCO Administration Furosemide 80 mg 03/25/21 10:00 03/26/21 10:21 Furosemide 40 Mg Tab PO 80 mg DAILY CISCO Administration Gabapentin 100 mg 03/25/21 10:00 03/26/21 23:25 Gabapentin 100 Mg Cap PO 100 mg BID CISCO Administration Sodium Chloride 100 mls @ 999 mls/hr 03/25/21 09:36 Nacl 0.9% IV STACIA PRN Hypotension Insulin Human Lispro 0 unit 03/25/21 07:30 03/27/21 08:07 Insulin Lispro 100 Unit/Ml SUB-Q 3 unit ACHS CISCO Administration Protocol Lactulose 20 gm 03/24/21 22:56 Lactulose 20 Gm/30 Ml Oral Liqd PO QDAY PRN Constipation Levothyroxine Sodium 50 mcg 03/25/21 06:00 03/27/21 05:40 Levothyroxine 50 Mcg Tab PO 50 mcg QAM@0600 CISCO Administration Metoclopramide HCl 5 mg 03/24/21 23:18 Metoclopramide 10 Mg/2 Ml Inj IV Q6H PRN Nausea And Vomiting Morphine Sulfate 2 mg 03/24/21 22:57 03/26/21 16:45 Morphine 2 Mg/1 Ml Inj IV 2 mg Q4H PRN Administration Pain, Moderate (4-6) Ondansetron HCl 4 mg 03/24/21 22:57 Ondansetron 4 Mg/2 Ml Inj IV Q8H PRN Nausea And Vomiting Sodium Chloride 10 ml 03/25/21 10:00 03/26/21 23:25 Sodium Chloride 0.9% 10 Ml Flush Syringe IV 10 ml BID CISCO Administration Sodium Chloride 10 ml 03/24/21 22:57 Sodium Chloride 0.9% 10 Ml Flush Syringe IV PRN PRN LINE FLUSH
[2021-03-27] MEDS: APIXABAN 5 MG TAB PO SCH (14:36)
[2021-03-27] MEDS: allopurinoL 100 MG TAB PO SCH (14:37)
[2021-03-27] MEDS: FLUoxetine 20 MG CAP PO SCH (14:37)
[2021-03-27] MEDS: BACLOFEN 10 MG TAB PO SCH (14:38)
[2021-03-27] MEDS: FUROSEMIDE 40 MG TAB PO SCH (14:38)
[2021-03-27] MEDS: FAMOTIDINE 20 MG TAB PO SCH (14:38)
[2021-03-27] MEDS: GABAPENTIN 100 MG CAP PO SCH (14:38)
--- NOTE | 2021-03-27 15:03 | Event Note ---
Date: 03/27/21 Patient seen and examined Vitals noted Patient was planned for discharge yesterday but could not arrange transportation last night Patient will be discharged to skilled nursing after dialysis today.
[2021-03-27 17:21] VITALS: BP 113/44
== END 2021-03-27 18:37 | DRG 70 ==
LOC: ED 11:25 → 4A 19:49
PROVIDERS: ADMIT Internal Medicine; ATTEND Internal Medicine
PROC: 4A033R1 Measurement of Arterial Saturation, Peripheral, Percutaneous Approach (ICD-10-PCS; principal; 2021-03-24)
PROC: 5A1D70Z Performance of Urinary Filtration, Intermittent, Less than 6 Hours Per Day (ICD-10-PCS; 2021-03-25)
PROC: 5A1D70Z Performance of Urinary Filtration, Intermittent, Less than 6 Hours Per Day (ICD-10-PCS; 2021-03-27)
DX: G93.41 Metabolic encephalopathy (principal); I21.A1 Myocardial infarction type 2; N18.6 End stage renal disease; I13.2 Hypertensive heart and chronic kidney disease with heart failure and with stage 5 chronic kidney disease, or end stage renal disease; I69.351 Hemiplegia and hemiparesis following cerebral infarction affecting right dominant side; I50.9 Heart failure, unspecified; J44.9 Chronic obstructive pulmonary disease, unspecified; Z20.822 Contact with and (suspected) exposure to COVID-19; E11.22 Type 2 diabetes mellitus with diabetic chronic kidney disease; I25.10 Atherosclerotic heart disease of native coronary artery without angina pectoris; M19.90 Unspecified osteoarthritis, unspecified site; E03.9 Hypothyroidism, unspecified; E11.42 Type 2 diabetes mellitus with diabetic polyneuropathy; K21.9 Gastro-esophageal reflux disease without esophagitis; E86.0 Dehydration; K56.41 Fecal impaction; K52.89 Other specified noninfective gastroenteritis and colitis; E78.2 Mixed hyperlipidemia; K52.9 Noninfective gastroenteritis and colitis, unspecified; E11.649 Type 2 diabetes mellitus with hypoglycemia without coma; Z88.5 Allergy status to narcotic agent; Z86.718 Personal history of other venous thrombosis and embolism; Z79.01 Long term (current) use of anticoagulants; Z86.711 Personal history of pulmonary embolism; Z95.1 Presence of aortocoronary bypass graft; Z87.891 Personal history of nicotine dependence; Z79.4 Long term (current) use of insulin; Z88.0 Allergy status to penicillin; I25.2 Old myocardial infarction; I69.320 Aphasia following cerebral infarction
CPT/HCPCS: 36415; 70450; 74176; 80053; 80061; 82140; 82550; 82553; 82805; 82962; 83036; 83880; 84439; 84443; 84484; 85025; 85730; 93005; 94640; G0378; A9270-GY; J1815; J2270; U0003

== ENCOUNTER 2021-04-22 14:06 | Emergency (ER) | payer MEDICARE ==
[2021-04-22] MEDS ORDERED: ONDANSETRON 4 MG/2 ML INJ IV ONE (14:29)
--- NOTE | 2021-04-22 14:34 | Emergency Department Report ---
ED General Adult HPI - General Stated complaint: NAUSEA/VOMITING Time Seen by Provider: 04/22/21 14:28 - History of Present Illness Initial comments: Patient is 76 years old female with history of end-stage renal disease on hemodialysis, congestive heart failure and coronary artery disease. Patient also has a CVA with right-sided hemiparesis and aphasia. Patient brought to the emergency room via EMS from a dialysis center after patient started having nausea and vomiting approximately 1-1/2 hours in her dialysis session. Patient is unable to answer questions due to her aphasia however she denied any chest pain. - Related Data Home Medications Medication Instructions Recorded Confirmed Last Taken FLUoxetine [PROzac] 20 mg PO QDAY 02/10/14 03/25/21 01/24/19 allopurinoL [Zyloprim] 100 mg PO QDAY 02/10/14 03/25/21 01/24/19 Levothyroxine [Synthroid] 50 mcg PO QAM 01/24/19 03/25/21 01/25/19 05:00 Previous Rx's Medication Instructions Recorded Last Taken Type Baclofen [Lioresal] 5 mg PO BID #60 tablet 04/05/14 01/24/19 Rx Lactulose [Cephulac] 20 gm PO QDAY PRN #7 oral.liqd 09/10/20 Unknown Rx ALBUTEROL NEB's [Proventil 0.083% 2.5 mg IH Q3HRT PRN nebu 03/15/21 Unknown Rx NEBS] Apixaban [Eliquis] 5 mg PO Q12HR tablet 03/15/21 Unknown Rx Furosemide [Lasix TAB] 80 mg PO DAILY tablet 03/15/21 Unknown Rx bisacodyL [Dulcolax suppos] 10 mg [place] QDAY PRN supp.rect 03/15/21 Unknown Rx AtorvaSTATin [Lipitor] 40 mg PO QHS tablet 03/18/21 Unknown Rx Gabapentin 100 mg PO BID capsule 03/18/21 Unknown Rx Famotidine [Pepcid] 20 mg PO DAILY tablet 03/19/21 Unknown Rx Lispro Insulin [HumaLOG] 0 unit SUB-Q ACHS units 03/26/21 Unknown Rx Ondansetron [Zofran Odt] 4 mg PO Q8HR PRN #14 tab.rapdis 04/22/21 Unknown Rx Allergies Allergy/AdvReac Type Severity Reaction Status Date / Time codeine Allergy Intermediate Unknown Verified 04/22/21 18:50 Penicillins AdvReac Severe Unknown Verified 04/22/21 18:50 ED Review of Systems ROS: Stated complaint: NAUSEA/VOMITING Other details as noted in HPI Comment: Unobtainable due to pts medical conditions ED Past Medical Hx - Past Medical History Hx Hypertension: Yes Hx Heart Attack/AMI: Yes Hx Congestive Heart Failure: Yes Hx Diabetes: Yes Hx Deep Vein Thrombosis: Yes Hx Pulmonary Embolism: Yes Hx GERD: Yes Hx Renal Disease: Yes (On dialysis ) Hx Arthritis: Yes Hx COPD: Yes Additional medical history: Aphasia - Surgical History Hx Open Heart Surgery: Yes (CABG 1998) Additional Surgical History: hx breast ca - Social History Smoking Status: Never Smoker - Medications Home Medications: Home Medications Medication Instructions Recorded Confirmed Last Taken Type FLUoxetine [PROzac] 20 mg PO QDAY 02/10/14 03/25/21 01/24/19 History allopurinoL [Zyloprim] 100 mg PO QDAY 02/10/14 03/25/21 01/24/19 History Baclofen [Lioresal] 5 mg PO BID #60 tablet 04/05/14 03/25/21 01/24/19 Rx Levothyroxine [Synthroid] 50 mcg PO QAM 01/24/19 03/25/21 01/25/19 05:00 History Lactulose [Cephulac] 20 gm PO QDAY PRN #7 oral.liqd 09/10/20 03/25/21 Unknown Rx ALBUTEROL NEB's [Proventil 0.083% 2.5 mg IH Q3HRT PRN nebu 03/15/21 03/25/21 Unknown Rx NEBS] Apixaban [Eliquis] 5 mg PO Q12HR tablet 03/15/21 03/25/21 Unknown Rx Furosemide [Lasix TAB] 80 mg PO DAILY tablet 03/15/21 03/25/21 Unknown Rx bisacodyL [Dulcolax suppos] 10 mg [place] QDAY PRN supp.rect 03/15/21 03/25/21 Unknown Rx AtorvaSTATin [Lipitor] 40 mg PO QHS tablet 03/18/21 03/25/21 Unknown Rx Gabapentin 100 mg PO BID capsule 03/18/21 03/25/21 Unknown Rx Famotidine [Pepcid] 20 mg PO DAILY tablet 03/19/21 03/25/21 Unknown Rx Lispro Insulin [HumaLOG] 0 unit SUB-Q ACHS units 03/26/21 Unknown Rx Ondansetron [Zofran Odt] 4 mg PO Q8HR PRN #14 tab.rapdis 04/22/21 Unknown Rx ED Physical Exam - General General appearance: alert, in no apparent distress - Head Head exam: Present: atraumatic, normocephalic, normal inspection - Eye Eye exam: Present: normal appearance, PERRL - ENT ENT exam: Present: normal exam, normal orophraynx, mucous membranes moist - Neck Neck exam: Present: normal inspection. Absent: tenderness, meningismus - Respiratory Respiratory exam: Present: normal lung sounds bilaterally - Cardiovascular Cardiovascular Exam: Present: regular rate, normal rhythm, normal heart sounds - GI/Abdominal GI/Abdominal exam: Present: soft, normal bowel sounds. Absent: distended, t enderness, guarding, rebound, rigid, mass, bruit, pulsatile mass, hernia - Extremities Exam Extremities exam: Present: normal inspection, full ROM, normal capillary refill - Back Exam Back exam: Present: normal inspection, full ROM. Absent: CVA tenderness (R), CVA tenderness (L) - Neurological Exam Neurological exam: Present: alert, motor sensory deficit - Psychiatric Psychiatric exam: Present: flat affect - Skin Skin exam: Present: warm, intact, normal color ED Course Vital Signs 04/22/21 04/22/21 04/22/21 14:32 14:46 14:49 Temperature 98.2 F Pulse Rate 65 73 66 Respiratory 10 L 9 L 15 Rate Blood Pressure 129/56 129/56 O2 Sat by Pulse 98 92 100 Oximetry 04/22/21 04/22/21 04/22/21 15:00 15:16 15:30 Temperature Pulse Rate 65 64 65 Respiratory 12 11 L 11 L Rate Blood Pressure 105/56 105/56 O2 Sat by Pulse 91 93 91 Oximetry 04/22/21 04/22/21 04/22/21 15:46 16:00 16:16 Temperature Pulse Rate Respiratory 9 L 13 11 L Rate Blood Pressure 105/56 105/56 105/56 O2 Sat by Pulse 90 95 93 Oximetry 04/22/21 04/22/21 04/22/21 17:00 17:30 18:00 Temperature Pulse Rate Respiratory 12 7 L 9 L Rate Blood Pressure 105/56 105/56 105/56 O2 Sat by Pulse 91 90 90 Oximetry 04/22/21 04/22/21 04/22/21 18:33 18:46 19:00 Temperature Pulse Rate 63 Respiratory 14 Rate Blood Pressure 138/51 138/51 128/55 O2 Sat by Pulse 100 100 Oximetry 04/22/21 04/22/21 04/22/21 19:16 19:30 19:46 Temperature Pulse Rate Respiratory Rate Blood Pressure 128/55 127/54 127/54 O2 Sat by Pulse 100 100 100 Oximetry 04/22/21 04/22/21 04/22/21 20:00 20:16 20:30 Temperature Pulse Rate Respiratory 14 Rate Blood Pressure 127/52 127/52 131/57 O2 Sat by Pulse 99 100 100 Oximetry 04/22/21 04/22/21 04/22/21 20:45 20:46 21:00 Temperature 97.9 F Pulse Rate Respiratory Rate Blood Pressure 131/57 121/54 O2 Sat by Pulse 100 100 Oximetry 04/22/21 04/22/21 04/22/21 21:16 21:30 21:46 Temperature Pulse Rate Respiratory Rate Blood Pressure 121/54 120/55 120/55 O2 Sat by Pulse 100 100 99 Oximetry 04/22/21 04/22/21 04/22/21 22:00 22:16 22:30 Temperature Pulse Rate Respiratory Rate Blood Pressure 128/58 128/58 127/49 O2 Sat by Pulse 100 100 98 Oximetry ED Medical Decision Making - Lab Data Result diagrams: 04/22/21 15:17 04/22/21 14:38 - EKG Data -: EKG Interpreted by Ca EKG shows normal: sinus rhythm - EKG Data Interpretation: no acute changes 04/22/21 18:54 No change compared to EKG on March 24 - Radiology Data Radiology results: report reviewed - Medical Decision Making Patient is 76 years old female with history of end-stage renal disease on hemodialysis, congestive heart failure and coronary artery disease. Patient also has a CVA with right-sided hemiparesis and aphasia. Patient brought to the emergency room via EMS from a dialysis center after patient started having nausea and vomiting approximately 1-1/2 hours in her dialysis session. Patient is unable to answer questions due to her aphasia however she denied any chest pain. Labs reviewed and is unremarkable except for chronic elevation of creatinine and BUN. CT abdomen and pelvis is negative for acute finding. No vomiting observed after Zofran. Patient daughter at bedside and stated that her mother usually have nausea and vomiting after dialysis. Patient now is alert and smiling to her daughter in no acute distress. Patient given prescription for Zofran and advised to follow-up with his primary care physician in the next 2 to 3 days and to return to the ER she develop any new symptoms. Critical care attestation.: If time is entered above; I have spent that time in minutes in the direct care of this critically ill patient, excluding procedure time. ED Disposition Clinical Impression: Acute nausea with nonbilious vomiting, End stage renal disease Disposition: - TO HOME OR SELFCARE Is pt being admited?: No Condition: Stable Instructions: Nausea and Vomiting, Adult, Dialysis Prescriptions: Ondansetron [Zofran Odt] 4 mg PO Q8HR PRN #14 tab.rapdis PRN Reason: Nausea And Vomiting Referrals: PRIMARY CARE, [Primary Care Provider] - 3-5 Days
[2021-04-22 16:03] LABS: Hematocrit 45.1 % (30.3-42.9); Hemoglobin 14.6 gm/dl (10.1-14.3); Mean Corpuscular HGB Conc 32 % (30-34); Mean Corpuscular Volume 96 fl (79-97); Platelet Count 93 K/mm3 (140-440); Red Blood Count 4.68 M/mm3 (3.65-5.03); Red Cell Distribution Width 17.6 % (13.2-15.2)
[2021-04-22 16:05] LABS: Basophils % (Auto) 0.6 % (0.0-1.8); Eosinophils # (Auto) 0.1 K/mm3 (0.0-0.4); Eosinophils % (Auto) 1.2 % (0.0-4.3); Lymphocytes # (Auto) 0.8 K/mm3 (1.2-5.4); Lymphocytes % (Auto) 12.9 % (13.4-35.0); Monocytes # (Auto) 0.5 K/mm3 (0.0-0.8); Monocytes % (Auto) 8.4 % (0.0-7.3)
[2021-04-22 17:17] LABS: Albumin 3.6 g/dL (3.9-5); Bilirubin,Direct 0.5 mg/dL (0-0.2); Calcium 9.9 mg/dL (8.4-10.2)
[2021-04-22] MEDS ORDERED: ONDANSETRON 4 MG/2 ML INJ ONE (18:37)
--- NOTE | 2021-04-22 18:46 | Cat Scan Report ---
CT ABDOMEN AND PELVIS WITHOUT CONTRAST INDICATION / CLINICAL INFORMATION: ABDOMINAL PAIN. TECHNIQUE: Axial CT images were obtained through the abdomen and pelvis without IV contrast. All CT scans at this location are performed using CT dose reduction for ALARA by means of automated exposure control. COMPARISON: CT scan dated 03/24/2021 FINDINGS: LOWER CHEST: There is some mild patchy airspace opacity in the left lung base which could represent a telectasis or evolving pneumonia LIVER: No significant abnormality. GALLBLADDER: Cholelithiasis BILE DUCTS: No significant abnormality. PANCREAS: No significant abnormality. SPLEEN: No significant abnormality. ADRENALS: No significant abnormality. RIGHT KIDNEY / URETER: No significant abnormality. LEFT KIDNEY / URETER: No significant abnormality. STOMACH / SMALL BOWEL: No significant abnormality. COLON: There is a moderate to large amount of stool noted in the rectal vault. APPENDIX: No significant abnormality. PERITONEUM: No free fluid. No free air. No fluid collection. LYMPH NODES: No significant adenopathy. AORTA / ARTERIES: Atherosclerotic calcifications appear unchanged IVC / VEINS: IVC filter is again noted. URINARY BLADDER: No significant abnormality. REPRODUCTIVE ORGANS: No significant abnormality. ADDITIONAL FINDINGS: None. SKELETAL SYSTEM: No significant abnormality. IMPRESSION: 1. No significant change. There is moderate large amount stool noted in the rectal vault. 2. There is cholelithiasis. 3. There is mild patchy airspace opacity in the left lung base which could represent atelectasis or e volving pneumonia. Signer Name: Manjinder Peguero MD Signed: 04/22/2021 6:42 PM Workstation Name: [id number]
[2021-04-22 23:17] VITALS: BP 127/49
--- NOTE | 2021-04-24 19:14 | Electrocardiograph Report ---
[facility] Test Date: 2021-04-22 Test Time: 18:47:22 Pat Name: ANNEL KOENIG Department: Room: Gender: F [employer]: NURSE : 1945 Requested By: ZOEY AVILES Order Number: [id number] Reading MD: Chandu Watt Measurements Intervals [place] Rate: 59 P: 50 LA: 202 QRS: 12 QRSD: 99 T: 156 QT: 508 QTc: 517 Interpretive Statements Sinus rhythm Ventricular premature complex Probable left atrial enlargement Abnormal T, consider ischemia, lateral leads Prolonged QT interval Compared to ECG 03/24/2021 16:48:25 No significant change Electronically Signed On 04-24-2021 19:14:36 EDT by Chandu Watt
== END 2021-04-22 22:55 | disposition home or self-care (01) ==
LOC: ED 14:06
DX: E11.22 Type 2 diabetes mellitus with diabetic chronic kidney disease (principal); I13.2 Hypertensive heart and chronic kidney disease with heart failure and with stage 5 chronic kidney disease, or end stage renal disease; I50.9 Heart failure, unspecified; N18.6 End stage renal disease; R11.2 Nausea with vomiting, unspecified; R10.9 Unspecified abdominal pain; Z99.2 Dependence on renal dialysis; K21.9 Gastro-esophageal reflux disease without esophagitis; J44.9 Chronic obstructive pulmonary disease, unspecified; M19.91 Primary osteoarthritis, unspecified site; Z98.890 Other specified postprocedural states; Z79.4 Long term (current) use of insulin; Z79.899 Other long term (current) drug therapy; Z88.0 Allergy status to penicillin; Z88.8 Allergy status to other drugs, medicaments and biological substances
CPT/HCPCS: 36415; 74176; 80048; 80076; 83690; 85025; 93005; 96374; 99284; J2405